=== PATIENT | male | born 1950 | race Caucasian/White ===

== ENCOUNTER → 2018-04-13 | Outpatient (CLI) | payer OTHER ==
--- NOTE | 2018-04-14 07:22 | PE ---
EXAMINATION TYPE: PET CT fusion skull to thigh DATE OF EXAM: 04/13/2018 COMPARISON: NONE HISTORY: Pancreatic cancer diagnosed on liver biopsy in February 2018. TECHNIQUE: Following the intravenous administration of 10.42 mCi of F-18 FDG, whole body images are performed from the skull base to the midthigh. Images are reviewed on the computer in the coronal, a xial, and sagittal planes. Reconstructed rotating images are created on independent workstation and reviewed on the computer. A noncontrast CT is performed in conjunction with the PET scan. SCAN: Initial Scan FINDINGS: SKULL BASE AND NECK: No areas of suspicious hypermetabolic uptake are present. CHEST, MEDIASTINUM, AND HILAR REGION: No areas of suspicious hypermetabolic uptake are seen. ABDOMEN AND PELVIS: Large irregular soft tissue mass is present centered in the uncinate process of p ancreas difficult to accurately measure from adjacent duodenal sweep likely measuring roughly 8 x 5 c m near axial image 151. Metallic internal biliary stent is identified. Mild hypermetabolic uptake is seen, max SUV is 3.8 posterior central aspect of the mass just anterior to aorta. Liver shows suspicious hypodense oval lesion posterior right hepatic lobe axial image 133 measuring r oughly 5.0 x 3.3 cm without abnormal hypermetabolic uptake. There are likely additional smaller scatt ered hypoechoic lesions. Max SUV throughout liver is roughly 3.1 without suspicious focal increased u ptake corresponding to hypodense lesions. Both above findings can be better evaluated with contrast-enhanced CT. No areas of suspicious hypermetabolic uptake in the abdomen or pelvis are seen. OSSEOUS STRUCTURES: No areas of suspicious hypermetabolic uptake are noted. OTHER CT: Mild to moderate calcified plaque bilateral carotid bulbs is present. There is right internal jugular Mediport catheter terminating near cavoatrial junction. Post CABG changes with mediastinal clips and sternal wires is identified. Main pulmonary artery measu res 4.2 cm at bifurcation, CT findings consistent with underlying pulmonary artery hypertension. Nell cent ascending aorta measures up to 4.3 cm in diameter. Elevated left hemidiaphragm is present. Mild to moderate underlying emphysematous change is identified without suspicious nodules. Suspect kaye bcentimeter low dense possible fat nodule posterior right thyroid axial image 53. Cholecystectomy changes are present. No suspicious biliary dilatation noted. There are some exophytic simple appearing cysts throughout both kidneys. There is multilevel spurring in the spine is seen. There is facet arthropathy lower lumbar spine note d. IMPRESSION: No suspicious focal hypermetabolic uptake correlating to areas of primary neoplasm in the pancreas and metastatic disease to the liver making utility of PET in this patient suboptimal. No co nvincing evidence of additional metastatic disease on noncontrast CT.
== END ==
LOC: RADPETMAIN 09:48
PROVIDERS: ATTEND Pain Medicine Interventional Pain Medicine
DX: Z08 Encounter for follow-up examination after completed treatment for malignant neoplasm (principal); Z85.07 Personal history of malignant neoplasm of pancreas
CPT/HCPCS: 78815; A9552

== ENCOUNTER 2018-05-02 22:16 | Inpatient (IN) | payer OTHER, MEDICARE ==
[2018-05-02] MEDS ORDERED: IPRATROPIUM-ALBUTEROL 3 ML NEB INHALATION STA (22:42)
--- NOTE | 2018-05-02 22:48 | ED ---
General Adult HPI - General Source: patient, family, RN notes reviewed Mode of arrival: ambulatory Limitations: no limitations <Sd Talley - Last Filed: 05/02/18 23:00> <Bharat Hernandez - Last Filed: 05/03/18 02:49> - General Chief complaint: Shortness of Breath Stated complaint: Swollen Feet, Fever, HX Chemo Time Seen by Provider: 05/02/18 22:36 - History of Present Illness Initial comments: Patient is a pleasant 67-year-old male presenting to the emergency Department with swelling and dyspnea. Onset of symptoms was today. Patient received his second dose of chemotherapy today for stage IV pancreatic cancer diagnosed in January. Patient has had his chemotherapy at the [facility]. Patient does have plans of transferring care to our facility. Patient received Gemcitabine and abraxane today. Patient does have history of COPD. Patient is short of breath even with speaking several words. Patient does have increase in leg edema, more so on his left. Patient has bilateral leg pain which has been chronic for him. Patient has been more fatigued. Patient did have fever earlier today. ( Sd Talley) - Related Data Allergies Allergy/AdvReac Type Severity Reaction Status Date / Time fluticasone Allergy Unknown Verified 05/02/18 23:28 roflumilast Allergy Unknown Verified 05/02/18 23:28 saxagliptin Allergy Unknown Verified 05/02/18 23:28 terazosin Allergy elevated BP Verified 05/02/18 23:28 Review of Systems ROS Other: All systems not noted in ROS Statement are negative. Constitutional: Reports: fever, chills Eyes: Denies: eye pain ENT: Denies: ear pain Respiratory: Reports: cough, dyspnea Cardiovascular: Denies: chest pain Endocrine: Reports: fatigue Gastrointestinal: Reports: abdominal pain (Chronic and unchanged) Genitourinary: Denies: dysuria Musculoskeletal: Denies: back pain Skin: Denies: rash Neurological: Denies: headache <Sd Talley - Last Filed: 05/02/18 23:00> ROS Other: All systems not noted in ROS Statement are negative. <Bharat Hernandez - Last Filed: 05/03/18 02:49> ROS Statement: Those systems with pertinent positive or pertinent negative responses have been documented in the HPI. Past Medical History Past Medical History: COPD, Diabetes Mellitus, Hypertension Additional Past Medical History / Comment(s): cx. CHF History of Any Multi-Drug Resistant Organisms: None Reported Past Surgical History: Cholecystectomy Additional Past Surgical History / Comment(s): triple bipass. Past Psychological History: No Psychological Hx Reported Smoking Status: Current every day smoker Past Alcohol Use History: None Reported Past Drug Use History: None Reported <Sd Talley - Last Filed: 05/02/18 23:00> General Exam Limitations: no limitations General appearance: alert Head exam: Present: atraumatic Eye exam: Present: normal appearance, PERRL ENT exam: Present: normal oropharynx Neck exam: Present: normal inspection Respiratory exam: Present: decreased breath sounds Cardiovascular Exam: Present: regular rate, normal rhythm GI/Abdominal exam: Present: soft, tenderness (Mild to moderate epigastric tenderness which patient states is chronic and unchanged) Extremities exam: Present: pedal edema (+3 bilaterally) Neurological exam: Present: alert Psychiatric exam: Present: normal affect, normal mood Skin exam: Present: normal color <Sd Talley - Last Filed: 05/02/18 23:00> Vital Signs 05/02/18 05/02/18 05/02/18 22:28 22:54 23:16 Temperature 98.7 F Pulse Rate 90 90 Respiratory 18 Rate Blood Pressure 73/32 88/44 O2 Sat by Pulse 96 Oximetry 05/02/18 05/03/18 05/03/18 23:24 01:00 01:30 Temperature Pulse Rate 90 83 82 Respiratory 16 18 Rate Blood Pressure 101/67 108/65 O2 Sat by Pulse 98 97 Oximetry EKG Findings - EKG Comments: EKG Findings:: Normal sinus rhythm 86. KS 160. QRS 66. QT 352. QTC 41. Normal axis. Normal QRS. No acute ST change. <Sd Talley - Last Filed: 05/02/18 23:00> Medical Decision Making <Sd Talley - Last Filed: 05/02/18 23:00> - Lab Data Result diagrams: 05/02/18 23:15 05/02/18 23:15 - Radiology Data Radiology results: report reviewed (CTA chest ultrasound leg, chest x-ray negative for acute disease), image reviewed <Bharat Hernandez - Last Filed: 05/03/18 02:49> - Medical Decision Making 59-year-old male the ER with fever, possible medication reaction from new chemotherapy, she'll be admitted for prophylactic antibiotics, rule out bacteremia, fluid resuscitation and monitoring (Bharat Hernandez) - Lab Data Lab Results 05/02/18 05/02/18 05/02/18 Range/Units 23:15 23:15 23:15 WBC 5.5 (3.8-10.6) k/uL RBC 3.59 L (4.30-5.90) m/uL Hgb 8.1 L (13.0-17.5) gm/dL Hct 25.4 L (39.0-53.0) % MCV 70.6 L (80.0-100.0) fL MCH 22.5 L (25.0-35.0) pg MCHC 31.9 (31.0-37.0) g/dL RDW 18.9 H (11.5-15.5) % Plt Count 201 (150-450) k/uL Neutrophils % (Manual) 83 % Band Neutrophils % 8 % Lymphocytes % (Manual) 8 % Monocytes % (Manual) 2 % Neutrophils # (Manual) 5.00 (1.3-7.7) k/uL Lymphocytes # (Manual) 0.44 L (1.0-4.8) k/uL Monocytes # (Manual) 0.11 (0-1.0) k/uL Nucleated RBCs 0 (0-0) /100 WBC Manual Slide Review Performed Hypochromasia Marked Poikilocytosis Slight Anisocytosis Slight Microcytosis Marked PT (9.0-12.0) sec INR (<1.2) APTT (22.0-30.0) sec Sodium 135 L (137-145) mmol/L Potassium 4.6 (3.5-5.1) mmol/L Chloride 103 (98-107) mmol/L Carbon Dioxide 22 (22-30) mmol/L Anion Gap 10 mmol/L BUN 20 (9-20) mg/dL Creatinine 1.00 (0.66-1.25) mg/dL Est GFR (CKD-EPI)AfAm 89 (>60 ml/min/1.73 sqM) Est GFR (CKD-EPI)NonAf 77 (>60 ml/min/1.73 sqM) Glucose 168 H (74-99) mg/dL Plasma Lactic Acid Duy (0.7-2.0) mmol/L Calcium 8.4 (8.4-10.2) mg/dL Total Bilirubin 0.8 (0.2-1.3) mg/dL AST 46 (17-59) U/L ALT 63 (21-72) U/L Alkaline Phosphatase 227 H (38-126) U/L Total Creatine Kinase 68 (55-170) U/L CK-MB (CK-2) 1.1 (0.0-2.4) ng/mL CK-MB (CK-2) Rel Index 1.6 Troponin I 0.017 (0.000-0.034) ng/mL NT-Pro-B Natriuret Pep pg/mL Total Protein 5.6 L (6.3-8.2) g/dL Albumin 2.6 L (3.5-5.0) g/dL Urine Color Urine Appearance (Clear) Urine pH (5.0-8.0) Ur Specific [place] (1.001-1.035) Urine Protein (Negative) Urine Glucose (UA) (Negative) Urine Ketones (Negative) Urine Blood (Negative) Urine Nitrite (Negative) Urine Bilirubin (Negative) Urine Urobilinogen (<2.0) mg/dL Ur Leukocyte Esterase (Negative) Influenza Type A RNA (Not Detectd) Influenza Type B (PCR) (Not Detectd) 05/02/18 05/02/18 05/02/18 Range/Units 23:15 23:15 23:15 WBC (3.8-10.6) k/uL RBC (4.30-5.90) m/uL Hgb (13.0-17.5) gm/dL Hct (39.0-53.0) % MCV (80.0-100.0) fL MCH (25.0-35.0) pg MCHC (31.0-37.0) g/dL RDW (11.5-15.5) % Plt Count (150-450) k/uL Neutrophils % (Manual) % Band Neutrophils % % Lymphocytes % (Manual) % Monocytes % (Manual) % Neutrophils # (Manual) (1.3-7.7) k/uL Lymphocytes # (Manual) (1.0-4.8) k/uL Monocytes # (Manual) (0-1.0) k/uL Nucleated RBCs (0-0) /100 WBC Manual Slide Review Hypochromasia Poikilocytosis Anisocytosis Microcytosis PT 12.5 H (9.0-12.0) sec INR 1.3 H (<1.2) APTT 28.9 (22.0-30.0) sec Sodium (137-145) mmol/L Potassium (3.5-5.1) mmol/L Chloride (98-107) mmol/L Carbon Dioxide (22-30) mmol/L Anion Gap mmol/L BUN (9-20) mg/dL Creatinine (0.66-1.25) mg/dL Est GFR (CKD-EPI)AfAm (>60 ml/min/1.73 sqM) Est GFR (CKD-EPI)NonAf (>60 ml/min/1.73 sqM) Glucose (74-99) mg/dL Plasma Lactic Acid Duy 2.2 H* (0.7-2.0) mmol/L Calcium (8.4-10.2) mg/dL Total Bilirubin (0.2-1.3) mg/dL AST (17-59) U/L ALT (21-72) U/L Alkaline Phosphatase (38-126) U/L Total Creatine Kinase (55-170) U/L CK-MB (CK-2) (0.0-2.4) ng/mL CK-MB (CK-2) Rel Index Troponin I (0.000-0.034) ng/mL NT-Pro-B Natriuret Pep 1030 pg/mL Total Protein (6.3-8.2) g/dL Albumin (3.5-5.0) g/dL Urine Color Urine Appearance (Clear) Urine pH (5.0-8.0) Ur Specific [place] (1.001-1.035) Urine Protein (Negative) Urine Glucose (UA) (Negative) Urine Ketones (Negative) Urine Blood (Negative) Urine Nitrite (Negative) Urine Bilirubin (Negative) Urine Urobilinogen (<2.0) mg/dL Ur Leukocyte Esterase (Negative) Influenza Type A RNA (Not Detectd) Influenza Type B (PCR) (Not Detectd) 05/03/18 05/03/18 Range/Units 01:57 01:57 WBC (3.8-10.6) k/uL RBC (4.30-5.90) m/uL Hgb (13.0-17.5) gm/dL Hct (39.0-53.0) % MCV (80.0-100.0) fL MCH (25.0-35.0) pg MCHC (31.0-37.0) g/dL RDW (11.5-15.5) % Plt Count (150-450) k/uL Neutrophils % (Manual) % Band Neutrophils % % Lymphocytes % (Manual) % Monocytes % (Manual) % Neutrophils # (Manual) (1.3-7.7) k/uL Lymphocytes # (Manual) (1.0-4.8) k/uL Monocytes # (Manual) (0-1.0) k/uL Nucleated RBCs (0-0) /100 WBC Manual Slide Review Hypochromasia Poikilocytosis Anisocytosis Microcytosis PT (9.0-12.0) sec INR (<1.2) APTT (22.0-30.0) sec Sodium (137-145) mmol/L Potassium (3.5-5.1) mmol/L Chloride (98-107) mmol/L Carbon Dioxide (22-30) mmol/L Anion Gap mmol/L BUN (9-20) mg/dL Creatinine (0.66-1.25) mg/dL Est GFR (CKD-EPI)AfAm (>60 ml/min/1.73 sqM) Est GFR (CKD-EPI)NonAf (>60 ml/min/1.73 sqM) Glucose (74-99) mg/dL Plasma Lactic Acid Duy (0.7-2.0) mmol/L Calcium (8.4-10.2) mg/dL Total Bilirubin (0.2-1.3) mg/dL AST (17-59) U/L ALT (21-72) U/L Alkaline Phosphatase (38-126) U/L Total Creatine Kinase (55-170) U/L CK-MB (CK-2) (0.0-2.4) ng/mL CK-MB (CK-2) Rel Index Troponin I (0.000-0.034) ng/mL NT-Pro-B Natriuret Pep pg/mL Total Protein (6.3-8.2) g/dL Albumin (3.5-5.0) g/dL Urine Color Yellow Urine Appearance Clear (Clear) Urine pH 5.5 (5.0-8.0) Ur Specific [place] 1.047 H (1.001-1.035) Urine Protein Trace H (Negative) Urine Glucose (UA) Negative (Negative) Urine Ketones Negative (Negative) Urine Blood Negative (Negative) Urine Nitrite Negative (Negative) Urine Bilirubin Negative (Negative) Urine Urobilinogen <2.0 (<2.0) mg/dL Ur Leukocyte Esterase Negative (Negative) Influenza Type A RNA Not Detected (Not Detectd) Influenza Type B (PCR) Not Detected (Not Detectd) Disposition <Sd Talley - Last Filed: 05/02/18 23:00> Is patient prescribed a controlled substance at d/c from ED?: No <Bharat Hernandez - Last Filed: 05/03/18 02:49> Clinical Impression: Fever, Weakness Disposition: ADMITTED IP TO THIS HOSP Condition: Fair Referrals: Joana Perales MD [Primary Care Provider] - 1-2 days
[2018-05-02 23:43] LABS: Albumin 2.6 g/dL (3.5-5.0); Calcium 8.4 mg/dL (8.4-10.2); Potassium 4.6 mmol/L (3.5-5.1); Total Bilirubin 0.8 mg/dL (0.2-1.3); Total Protein 5.6 g/dL (6.3-8.2)
--- NOTE | 2018-05-02 23:54 | XR ---
EXAMINATION TYPE: XR chest 1V portable DATE OF EXAM: 05/02/2018 COMPARISON: NONE HISTORY: Short of breath. TECHNIQUE: Single frontal view of the chest is obtained. FINDINGS: Portable upright view shows no heart failure. There is some coarsening of the lung marking s in the lower lobes. There are sternal wires. There is right central venous catheter with the tip in the superior vena cava. There are chest leads. There is no pneumothorax. There is no pleural effusio n. IMPRESSION: Minimal fibrotic changes. No heart failure or pulmonary consolidation.
[2018-05-03 00:08] LABS: INR 1.3 (<1.2); Partial Thromboplastin Time 28.9 sec (22.0-30.0); Prothrombin Time 12.5 sec (9.0-12.0)
[2018-05-03 00:27] LABS: Anisocytosis Slight; HCT 25.4 % (39.0-53.0); HGB 8.1 gm/dL (13.0-17.5); Hypochromasia Marked; MCH 22.5 pg (25.0-35.0); MCHC 31.9 g/dL (31.0-37.0); MCV 70.6 fL (80.0-100.0); Microcytosis Marked; Platelet Count 201 k/uL (150-450); Poikilocytosis Slight; RBC 3.59 m/uL (4.30-5.90); RDW 18.9 % (11.5-15.5); WBC 5.5 k/uL (3.8-10.6)
[2018-05-03] MEDS ORDERED: SODIUM CHLORIDE 0.9% 500 ML 500 ML IV ONE (00:32)
[2018-05-03 00:48] LABS: Creatine Kinase MB 1.1 ng/mL (0.0-2.4); Troponin I 0.017 ng/mL (0.000-0.034)
--- NOTE | 2018-05-03 00:59 | CT ---
EXAMINATION TYPE: CT angio chest DATE OF EXAM: 05/03/2018 12:35 AM COMPARISON: None HISTORY: SOB CT DLP: 701.4 mGycm Automated exposure control for dose reduction was used. CONTRAST: CTA scan of the thorax is performed with IV Contrast, patient injected with 100mL mL of Isovue 370, p ulmonary embolism protocol. The are 3-D post processed images.. FINDINGS: There is mild increased interstitial density at the lung bases. There is no evidence of a primary mas s. Heart appears enlarged. There is no pericardial effusion. There is no pleural effusion. There is n ormal contrast opacification of the pulmonary arteries. I see no filling defects. There is no mediast inal adenopathy. Thoracic aorta shows mild atheromatous change. There is mild aneurysm of ascending a sammy measures 4.1 cm. There is no dissection. There are mild spondylotic changes in the thoracic spin e. IMPRESSION: NO EVIDENCE OF PULMONARY EMBOLISM. ATHEROSCLEROTIC VASCULAR DISEASE. 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
[2018-05-03 01:03] LABS: Band Neutrophils % 8 %; Lymphocytes # (M) 0.44 k/uL (1.0-4.8); Monocytes # (M) 0.11 k/uL (0-1.0); Neutrophils % (M) 83 %; Nucleated Red Blood Cells 0 /100 WBC (0-0); Total Cells Counted 200
--- NOTE | 2018-05-03 01:35 | US ---
EXAMINATION TYPE: US venous doppler duplex LE LT DATE OF EXAM: 05/03/2018 12:35 AM COMPARISON: NONE CLINICAL HISTORY: Pain. Currently receiving chemo, pancreatic CA. left leg pain and swelling on and o ff SIDE PERFORMED: Left TECHNIQUE: The lower extremity deep venous system is examined utilizing real time linear array sonog barney with graded compression, doppler sonography and color-flow sonography. VESSELS IMAGED: External Iliac Vein (EIV) Common Femoral Vein Deep Femoral Vein Greater Saphenous Vein * Femoral Vein Popliteal Vein Small Saphenous Vein * Proximal Calf Veins (* superficial vessels) Left Leg: Negative for DVT IMPRESSION: Negative exam. No evidence of deep venous thrombosis in the left leg.
[2018-05-03 02:12] LABS: Appearance,Urine Clear (Clear); Bilirubin,Urine Negative (Negative); Blood,Urine Negative (Negative); Color,Urine Yellow; Glucose,Urine (UA) Negative (Negative); Ketones,Urine Negative (Negative); Leukocyte Esterase,Urine Negative (Negative); Nitrite,Urine Negative (Negative); PH, Urine 5.5 (5.0-8.0); Protein,Urine Trace (Negative); Urobilinogen,Urine <2.0 mg/dL (<2.0)
[2018-05-03 02:34] LABS: Specific Gravity,Urine 1.047 (1.001-1.035)
[2018-05-03] MEDS: SODIUM CHLORIDE 0.9% 500 ML 500 ML IV SCH ×3 (02:45→08:26)
[2018-05-03] MEDS ORDERED: LEVOFLOXACIN 750MG-D5W PMX 750 MG in DEXTROSE/WATER 1 150ML.BAG IVPB STA (02:46)
[2018-05-03] MEDS: SODIUM CHLORIDE 0.9% 1,000 ML IV SCH ×3 (04:06→18:08)
[2018-05-03] MEDS ORDERED: MELATONIN 3 MG TABLET PO PRN (05:57)
[2018-05-03] MEDS ORDERED: PROCHLORPERAZINE 10 MG TAB PO PRN (05:57)
[2018-05-03 07:10] LABS: Glucose,Whole Blood 149 mg/dL (75-99)
[2018-05-03] MEDS: MORPHINE SULFATE ER 30 MG TABLET PO PRN ×3 (07:28→18:51)
[2018-05-03] MEDS: IPRATROPIUM-ALBUTEROL 3 ML NEB INHALATION SCH ×5 (07:42→20:25)
[2018-05-03] MEDS: INSULIN ASPART 100 UNIT/ML 1 ML 10 ML VIAL SQ SCH ×4 (07:57→20:41)
[2018-05-03] MEDS: HYDROcodone/APAP 10-325MG 1 EACH TAB PO PRN ×4 (08:03→22:56)
[2018-05-03] MEDS: POLYETHYLENE GLYCOL 3350 17 GM POWD.PACK PO SCH ×2 (08:30→09:11)
[2018-05-03] MEDS: CYANOCOBALAMIN 500 MCG TAB PO SCH (08:30)
[2018-05-03] MEDS: TAMSULOSIN 0.4 MG CAP.ER.24H PO SCH ×2 (08:30→20:33)
[2018-05-03] MEDS: SENNOSIDES 8.6 MG TAB PO SCH ×3 (08:30→20:36)
[2018-05-03] MEDS: CLOTRIMAZOLE 1% CREAM 15 GM TUBE TOPICAL SCH ×2 (08:30→20:34)
[2018-05-03] MEDS: CHOLECALCIFEROL 400 UNIT TAB PO SCH (08:30)
[2018-05-03] MEDS: FINASTERIDE 5 MG TAB PO SCH (08:30)
[2018-05-03] MEDS: FERROUS SULFATE 325 MG TAB PO SCH (08:30)
[2018-05-03] MEDS: GABAPENTIN 400 MG CAP PO SCH ×3 (08:30→22:57)
[2018-05-03] MEDS: SUCRALFATE 1 GM TAB PO SCH ×4 (08:30→20:33)
[2018-05-03] MEDS: DIGOXIN 125 MCG TAB PO SCH (08:30)
[2018-05-03] MEDS: NICOTINE 21MG/24HR PATCH TRANSDERM SCH (08:30)
[2018-05-03] MEDS: ONDANSETRON ODT 8 MG TAB.RAPDIS PO SCH ×2 (08:30→20:33)
[2018-05-03 11:22] LABS: Glucose,Whole Blood 174 mg/dL (75-99)
[2018-05-03 13:51] LABS: Anisocytosis Slight; Basophils % (A) 0 %; Eosinophils % (A) 2 %; HCT 24.9 % (39.0-53.0); HGB 7.6 gm/dL (13.0-17.5); Hypochromasia Marked; Lymphocytes # (A) 0.3 k/uL (1.0-4.8); Lymphocytes % (A) 9 %; MCH 21.8 pg (25.0-35.0); MCHC 30.5 g/dL (31.0-37.0); MCV 71.6 fL (80.0-100.0); Mean Platelet Volume 9.6; Microcytosis Marked; Monocytes # (A) 0.1 k/uL (0-1.0); Monocytes % (A) 5 %; Neutrophils # (A) 2.5 k/uL (1.3-7.7); Neutrophils % (A) 83 %; Platelet Count 169 k/uL (150-450); Poikilocytosis Slight; RBC 3.47 m/uL (4.30-5.90); RDW 18.7 % (11.5-15.5)
[2018-05-03 14:28] LABS: Anion Gap 8 mmol/L; Blood Urea Nitrogen 18 mg/dL (9-20); Calcium 8.3 mg/dL (8.4-10.2); Carbon Dioxide 24 mmol/L (22-30); Chloride 104 mmol/L (98-107); Glucose 149 mg/dL (74-99); Potassium 3.8 mmol/L (3.5-5.1); Sodium 136 mmol/L (137-145)
--- NOTE | 2018-05-03 16:56 | US ---
EXAMINATION TYPE: US venous doppler duplex LE RT DATE OF EXAM: 05/03/2018 3:58 PM COMPARISON: CLINICAL HISTORY: Lower extremity edema. Swelling. Chemo treatment. Stopped blood thinners x 4 week s ago. No hx of blood clots. SIDE PERFORMED: Right TECHNIQUE: The lower extremity deep venous system is examined utilizing real time linear array sonog barney with graded compression, doppler sonography and color-flow sonography. VESSELS IMAGED: External Iliac Vein (EIV) Common Femoral Vein Deep Femoral Vein Greater Saphenous Vein * Femoral Vein Popliteal Vein Small Saphenous Vein * Proximal Calf Veins (* superficial vessels) Right Leg: Negative for DVT. Posterior right knee, fluid collection seen = 3.9 x 2.7 x 1.3 cm IMPRESSION: There is popliteal cyst. No evidence of deep venous thrombosis.
[2018-05-03 17:11] LABS: Glucose,Whole Blood 153 mg/dL (75-99)
[2018-05-03] MEDS: FUROSEMIDE 10 MG/ML 4 ML VIAL IV SCH ×2 (17:17→22:57)
[2018-05-03] MEDS: ATORVASTATIN 80 MG TAB PO SCH (20:34)
[2018-05-03 20:41] LABS: Glucose,Whole Blood 232 mg/dL (75-99)
[2018-05-03] MEDS: INSULIN DETEMIR 100 UNIT/ML 10 ML VIAL SQ SCH (20:42)
--- NOTE | 2018-05-03 21:59 | P.CONS ---
History of Present Illness - Reason for Consult Consult date: 05/03/18 Stage IV Pancreatic Carcinoma undergoing chemotherapy Requesting physician: Bharat Hernandez - Chief Complaint Shortness of breath - History of Present Illness Mr. Cameron is a pleasant 67 year old male patient who presented for increased dyspnea and shortness of breath. He apparently was recently diagnosed with stage IV pancreatic carcinoma back in January of this year and been undergoing chemotherapy with Abraxane and Gemzar through the [facility]. He is status post two treatments of gemzar and abraxane. Mr. Cameron has muliple co- morbidies aside this new diagnosis of carcinoma including COPD, Diabetes Mellitus, Hypertension, Prostate Disorder, Vascular Disorder, CHF, edema to lower extremities, renal disease, urinary hesistancy requiring straight cath, CABG with stents on plavix, and Atrial fibrillation on xarelto. at bedside. BLE edema and pain. States she brought him to hospital for rigors and fevers. Patient was ha cultured. IV abx initiated. he is currently feeling better. Review of Systems A 14 point review of systems assessed and completed and all negative except HPI. Past Medical History Past Medical History: COPD, Diabetes Mellitus, Hypertension, Prostate Disorder, Vascular Disorder Additional Past Medical History / Comment(s): cx. CHFemphysema, anemia, Stage 4 pancreatic cancer dx feb 2018, blister/yeast on scrotum, constipation, freq diarrhea with chemo, Triple A, edema to lower extremities History of Any Multi-Drug Resistant Organisms: None Reported Past Surgical History: Cholecystectomy, Coronary Bypass/CABG, Heart Catheterization With Stent Additional Past Surgical History / Comment(s): triple bipass 4 stents . carotid artery, Past Anesthesia/Blood Transfusion Reactions: Blood Transfusion Reaction Additional Past Anesthesia/Blood Transfusion Reaction / Comm: 4 days after fever Date of Last Stent Placement:: 2003 Past Psychological History: Depression Smoking Status: Current every day smoker Past Alcohol Use History: None Reported Past Drug Use History: None Reported - Past Family History Father Family Medical History: Myocardial Infarction ([place]) Mother Additional Family Medical History / Comment(s): blood clotting disease, triple bypass Brother(s) Additional Family Medical History / Comment(s): leukemia Medications and Allergies Home Medications Medication Instructions Recorded Confirmed Type Albuterol Inhaler [Ventolin Hfa 1 puff INHALATION RT-Q4H PRN 05/02/18 05/02/18 History Inhaler] Atorvastatin [Lipitor] 80 mg PO HS 05/02/18 05/02/18 History Cholecalciferol [Vitamin D3] 800 unit PO DAILY 05/02/18 05/02/18 History Cyanocobalamin (Vitamin B-12) 1,000 mcg PO DAILY 05/02/18 05/02/18 History [Vitamin B-12] Digoxin [Lanoxin] 125 mcg PO DAILY 05/02/18 05/02/18 History Ferrous Sulfate [Feosol] 325 mg PO DAILY 05/02/18 05/02/18 History Finasteride [Proscar] 5 mg PO DAILY 05/02/18 05/02/18 History Furosemide [Lasix] 40 mg PO TID 05/02/18 05/02/18 History Gabapentin [Neurontin] 400 mg PO TID 05/02/18 05/02/18 History HYDROcodone/APAP 10-325MG [[place] 1 tab PO Q4HR PRN 05/02/18 05/02/18 History 10-325] Insulin Aspart [NovoLOG Flexpen] 19 - 23 units SQ AC-TID 05/02/18 05/02/18 History Insulin Glargine [Lantus] 80 unit SQ HS 05/02/18 05/03/18 History Ketoconazole 2% Cream [Nizoral 2%] 1 applic TOPICAL BID 05/02/18 05/02/18 History Lisinopril [Zestril] 2.5 mg PO DAILY 05/02/18 05/02/18 History Melatonin 3 mg PO HS PRN 05/02/18 05/02/18 History Metoprolol Tartrate [Lopressor] 50 mg PO BID 05/02/18 05/02/18 History Morphine Sulfate ER [Ms Contin] 30 mg PO Q6HR PRN 05/02/18 05/03/18 History Ondansetron HCl 8 mg PO Q12HR 05/02/18 05/02/18 History Polyethylene Glycol 3350 [Miralax] 17 gm PO DAILY 05/02/18 05/02/18 History Prochlorperazine [Compazine] 10 mg PO Q6H PRN 05/02/18 05/02/18 History Sennosides [Senokot] 17.2 mg PO BID 05/02/18 05/02/18 History Sucralfate [Carafate] 1 gm PO QID 05/02/18 05/02/18 History Tamsulosin [Flomax] 0.4 mg PO BID 05/02/18 05/02/18 History Tiotropium [place] [Spiriva 2 spray INHALATION RT-DAILY 05/02/18 05/02/18 History Respimat] Allergies Allergy/AdvReac Type Severity Reaction Status Date / Time fluticasone Allergy Unknown Verified 05/03/18 04:52 roflumilast Allergy Unknown Verified 05/03/18 04:52 saxagliptin Allergy Unknown Verified 05/03/18 04:52 terazosin Allergy low blood Verified 05/03/18 04:52 pressure Physical Exam Vitals: Vital Signs Temp Pulse Pulse Pulse Resp BP BP 05/03/18 11:48 92 05/03/18 11:36 88 05/03/18 08:55 74 20 05/03/18 08:46 20 05/03/18 07:53 82 05/03/18 07:45 84 05/03/18 04:50 97.8 F 76 20 101/50 05/03/18 04:10 97.7 F 79 22 109/49 05/03/18 03:30 73 40 H 138/50 05/03/18 03:00 75 28 H 05/03/18 02:30 79 24 05/03/18 02:00 28 H 120/64 05/03/18 01:30 82 18 108/65 05/03/18 01:00 83 16 101/67 05/02/18 23:24 90 05/02/18 23:16 90 05/02/18 22:54 88/44 05/02/18 22:28 98.7 F 90 18 73/32 Pulse Ox 05/03/18 11:48 05/03/18 11:36 05/03/18 08:55 05/03/18 08:46 05/03/18 07:53 05/03/18 07:45 05/03/18 04:50 98 05/03/18 04:10 97 05/03/18 03:30 05/03/18 03:00 05/03/18 02:30 05/03/18 02:00 05/03/18 01:30 97 05/03/18 01:00 98 05/02/18 23:24 05/02/18 23:16 05/02/18 22:54 05/02/18 22:28 96 Intake and Output 05/02/18 05/03/18 05/03/18 22:59 06:59 14:59 Other: Voiding Method Self-Catheterization Weight 103.873 kg 103.5 kg 103.5 kg General appearance: alert Head exam: Normocephalic atraumatic Eye exam: non-icteric sclera, normal appearance, PERRL ENT exam: normal oropharynx Neck exam: Supple, no lymphadenopathy, Respiratory exam: Blateral decreased breath sounds at bases Cardiovascular Exam: irregular rate, rhythm GI/Abdominal exam: Obese, soft, tenderness Extremities exam: pedal edema (+3 bilaterally) left greater right Neurological exam: Non focal Psychiatric exam: normal affect, non focal Results CBC & Chem 7: 05/03/18 13:21 05/03/18 13:21 Labs: Abnormal Lab Results - Last 24 Hours (Table) 05/02/18 05/02/18 05/02/18 Range/Units 23:15 23:15 23:15 RBC 3.59 L (4.30-5.90) m/uL Hgb 8.1 L (13.0-17.5) gm/dL Hct 25.4 L (39.0-53.0) % MCV 70.6 L (80.0-100.0) fL MCH 22.5 L (25.0-35.0) pg RDW 18.9 H (11.5-15.5) % Lymphocytes # (Manual) 0.44 L (1.0-4.8) k/uL PT (9.0-12.0) sec INR (<1.2) Sodium 135 L (137-145) mmol/L Glucose 168 H (74-99) mg/dL POC Glucose (mg/dL) (75-99) mg/dL Plasma Lactic Acid Duy 2.2 H* (0.7-2.0) mmol/L Alkaline Phosphatase 227 H (38-126) U/L Total Protein 5.6 L (6.3-8.2) g/dL Albumin 2.6 L (3.5-5.0) g/dL Ur Specific [place] (1.001-1.035) Urine Protein (Negative) 05/02/18 05/03/1818 Range/Units 23:15 01:57 07:09 RBC (4.30-5.90) m/uL Hgb (13.0-17.5) gm/dL Hct (39.0-53.0) % MCV (80.0-100.0) fL MCH (25.0-35.0) pg RDW (11.5-15.5) % Lymphocytes # (Manual) (1.0-4.8) k/uL PT 12.5 H (9.0-12.0) sec INR 1.3 H (<1.2) Sodium (137-145) mmol/L Glucose (74-99) mg/dL POC Glucose (mg/dL) 149 H (75-99) mg/dL Plasma Lactic Acid Duy (0.7-2.0) mmol/L Alkaline Phosphatase (38-126) U/L Total Protein (6.3-8.2) g/dL Albumin (3.5-5.0) g/dL Ur Specific [place] 1.047 H (1.001-1.035) Urine Protein Trace H (Negative) 05/03/18 Range/Units 11:21 RBC (4.30-5.90) m/uL Hgb (13.0-17.5) gm/dL Hct (39.0-53.0) % MCV (80.0-100.0) fL MCH (25.0-35.0) pg RDW (11.5-15.5) % Lymphocytes # (Manual) (1.0-4.8) k/uL PT (9.0-12.0) sec INR (<1.2) Sodium (137-145) mmol/L Glucose (74-99) mg/dL POC Glucose (mg/dL) 174 H (75-99) mg/dL Plasma Lactic Acid Duy (0.7-2.0) mmol/L Alkaline Phosphatase (38-126) U/L Total Protein (6.3-8.2) g/dL Albumin (3.5-5.0) g/dL Ur Specific [place] (1.001-1.035) Urine Protein (Negative) CT scan - chest: report reviewed Venous US: report reviewed Assessment and Plan Plan: Assessment and Recommendations: 1. Metastatic Pancreatic Cancer - Treatment through [facility] - Status Post 2 weekly infusions of Gemcitabine and Abraxane - Currently on hold and will follow-up to resume treatment at [facility] with our medical oncology office - Please obtain all records from [place] 2. Subjective fever and Chills: Afebrile since admission: - Ha CUlture Pending UA/Culture pending 3. Leukopenia - Secondary to chemotherapy - Monitor for s/s of infection. If WBC less than 1.5 or Neuts less than 0.8 may initiate Zarxio 4. Normocytic Anemia: Secondary to chemotherapy - If less than 7 transfuse 5. BLE Edema - Dopplers negative - 6. Urinary Retention: - urology following, catheter Greater than 30 minutes spent with patient and family, reviewed their recent PET scan, stage of disease, the natural history and goals of care as palliative treatment of cancer especially in the picture of Mr. Norris other multiple co- morbidities which may increase treatment risks and minimize options. Currently his xarelto is on hold per [place] [facility]. THis was started per the patient for Trial fibrillation. His PLavix is on hold as well and they state [facility] secondary to increased risk of bleeding, no overt bleeding noted. PLatlets are stable, therefore from an oncology and hematolology standpoint if cardiology feels necessary and benefit of these medications there is no contraindation as long as platlet level is greaker than 50K and no evidence of bleeding THank you for allowing us to participate in the care of this patient we will follow along
[2018-05-04] MEDS: IPRATROPIUM-ALBUTEROL 3 ML NEB INHALATION SCH ×7 (00:14→23:14)
[2018-05-04] MEDS: MORPHINE SULFATE ER 30 MG TABLET PO PRN ×4 (01:26→22:15)
[2018-05-04] MEDS: SODIUM CHLORIDE 0.9% 1,000 ML IV SCH ×2 (02:53→16:38)
[2018-05-04] MEDS ORDERED: LEVOFLOXACIN 750MG-D5W PMX 750 MG in DEXTROSE/WATER 1 150ML.BAG IVPB SCH (04:00)
[2018-05-04] MEDS: HYDROcodone/APAP 10-325MG 1 EACH TAB PO PRN ×3 (05:37→15:45)
[2018-05-04 07:36] LABS: Glucose,Whole Blood 83 mg/dL (75-99)
[2018-05-04] MEDS: INSULIN ASPART 100 UNIT/ML 1 ML 10 ML VIAL SQ SCH ×4 (07:49→21:02)
[2018-05-04] MEDS: POLYETHYLENE GLYCOL 3350 17 GM POWD.PACK PO SCH (07:54)
[2018-05-04] MEDS: SENNOSIDES 8.6 MG TAB PO SCH ×2 (07:54→21:02)
[2018-05-04] MEDS: FUROSEMIDE 10 MG/ML 4 ML VIAL IV SCH ×2 (07:54→16:43)
[2018-05-04] MEDS: NICOTINE 21MG/24HR PATCH TRANSDERM SCH (07:59)
[2018-05-04] MEDS: CYANOCOBALAMIN 500 MCG TAB PO SCH (08:00)
[2018-05-04] MEDS: SUCRALFATE 1 GM TAB PO SCH ×4 (08:00→21:02)
[2018-05-04] MEDS: CHOLECALCIFEROL 400 UNIT TAB PO SCH (08:00)
[2018-05-04] MEDS: GABAPENTIN 400 MG CAP PO SCH ×3 (08:01→21:02)
[2018-05-04] MEDS: DIGOXIN 125 MCG TAB PO SCH (08:01)
[2018-05-04] MEDS: FERROUS SULFATE 325 MG TAB PO SCH (08:01)
[2018-05-04] MEDS: ONDANSETRON ODT 8 MG TAB.RAPDIS PO SCH ×2 (08:01→21:02)
[2018-05-04] MEDS: FINASTERIDE 5 MG TAB PO SCH (08:02)
[2018-05-04] MEDS: TAMSULOSIN 0.4 MG CAP.ER.24H PO SCH ×2 (08:02→21:02)
[2018-05-04 08:08] LABS: Glucose,Whole Blood 77 mg/dL (75-99)
[2018-05-04 08:51] LABS: Glucose,Whole Blood 121 mg/dL (75-99)
[2018-05-04] MEDS: CLOTRIMAZOLE 1% CREAM 15 GM TUBE TOPICAL SCH ×2 (09:31→21:01)
[2018-05-04 11:44] LABS: Glucose,Whole Blood 130 mg/dL (75-99)
[2018-05-04 11:53] LABS: Anisocytosis Slight; Basophils % (A) 0 %; Eosinophils % (A) 1 %; HCT 24.3 % (39.0-53.0); HGB 7.3 gm/dL (13.0-17.5); Hypochromasia Marked; Lymphocytes # (A) 0.2 k/uL (1.0-4.8); Lymphocytes % (A) 7 %; MCH 22.1 pg (25.0-35.0); MCHC 30.2 g/dL (31.0-37.0); MCV 73.4 fL (80.0-100.0); Mean Platelet Volume 8.5; Microcytosis Moderate; Monocytes # (A) 0.1 k/uL (0-1.0); Monocytes % (A) 3 %; Neutrophils # (A) 2.2 k/uL (1.3-7.7); Neutrophils % (A) 88 %; Platelet Count 181 k/uL (150-450); Poikilocytosis Slight; RDW 18.3 % (11.5-15.5); WBC 2.6 k/uL (3.8-10.6)
[2018-05-04 11:55] LABS: ALT 65 U/L (21-72); AST 42 U/L (17-59); Albumin 2.6 g/dL (3.5-5.0); Alkaline Phosphatase 166 U/L (38-126); Anion Gap 8 mmol/L; Blood Urea Nitrogen 14 mg/dL (9-20); Calcium 8.3 mg/dL (8.4-10.2); Carbon Dioxide 24 mmol/L (22-30); Chloride 103 mmol/L (98-107); Glucose 82 mg/dL (74-99); Potassium 3.9 mmol/L (3.5-5.1); Sodium 135 mmol/L (137-145); Total Bilirubin 0.4 mg/dL (0.2-1.3); Total Protein 5.6 g/dL (6.3-8.2)
[2018-05-04] MEDS ORDERED: FUROSEMIDE 250 MG in SODIUM CHLORIDE 0.9% 225 ML IVP SCH (17:00)
--- NOTE | 2018-05-04 17:12 | P.HPIM ---
History of Present Illness H&P Date: 05/03/18 Patient is a pleasant 67-year-old male presenting to the emergency Department with swelling and dyspnea. Onset of symptoms was today. Patient received his second dose of chemotherapy today for stage IV pancreatic cancer diagnosed in January. Patient has had his chemotherapy at the [facility]. Patient does have plans of transferring care to our facility. Patient received Gemcitabine and abraxane today. Patient does have history of COPD. Patient is short of breath even with speaking several words. Patient does have increase in leg edema, more so on his left. Patient has bilateral leg pain which has been chronic for him. Patient has been more fatigued. Patient did have fever earlier today. Review of Systems ROS Other: All systems not noted in ROS Statement are negative. Constitutional: Reports: fever, chills Eyes: Denies: eye pain ENT: Denies: ear pain Respiratory: Reports: cough, dyspnea Cardiovascular: Denies: chest pain Endocrine: Reports: fatigue Gastrointestinal: Reports: abdominal pain (Chronic and unchanged) Genitourinary: Denies: dysuria Musculoskeletal: Denies: back pain Skin: Denies: rash Neurological: Denies: headache Past Medical History Past Medical History: COPD, Diabetes Mellitus, Hypertension, Prostate Disorder, Vascular Disorder Additional Past Medical History / Comment(s): cx. CHFemphysema, anemia, Stage 4 pancreatic cancer dx feb 2018, blister/yeast on scrotum, constipation, freq diarrhea with chemo, Triple A, edema to lower extremities History of Any Multi-Drug Resistant Organisms: None Reported Past Surgical History: Cholecystectomy, Coronary Bypass/CABG, Heart Catheterization With Stent Additional Past Surgical History / Comment(s): triple bipass 4 stents . carotid artery, Past Anesthesia/Blood Transfusion Reactions: Blood Transfusion Reaction Additional Past Anesthesia/Blood Transfusion Reaction / Comment(s): 4 days after fever Date of Last Stent Placement:: 2003 Past Psychological History: Depression Smoking Status: Current every day smoker Past Alcohol Use History: None Reported Past Drug Use History: None Reported - Past Family History Father Family Medical History: Myocardial Infarction ([place]) Mother Additional Family Medical History / Comment(s): blood clotting disease, triple bypass Brother(s) Additional Family Medical History / Comment(s): leukemia Medications and Allergies Home Medications Medication Instructions Recorded Confirmed Type Albuterol Inhaler [Ventolin Hfa 1 puff INHALATION RT-Q4H PRN 05/02/18 05/02/18 History Inhaler] Atorvastatin [Lipitor] 80 mg PO HS 05/02/18 05/02/18 History Cholecalciferol [Vitamin D3] 800 unit PO DAILY 05/02/18 05/02/18 History Cyanocobalamin (Vitamin B-12) 1,000 mcg PO DAILY 05/02/18 05/02/18 History [Vitamin B-12] Digoxin [Lanoxin] 125 mcg PO DAILY 05/02/18 05/02/18 History Ferrous Sulfate [Feosol] 325 mg PO DAILY 05/02/18 05/02/18 History Finasteride [Proscar] 5 mg PO DAILY 05/02/18 05/02/18 History Furosemide [Lasix] 40 mg PO TID 05/02/18 05/02/18 History Gabapentin [Neurontin] 400 mg PO TID 05/02/18 05/02/18 History HYDROcodone/APAP 10-325MG [[place] 1 tab PO Q4HR PRN 05/02/18 05/02/18 History 10-325] Insulin Aspart [NovoLOG Flexpen] 19 - 23 units SQ AC-TID 05/02/18 05/02/18 History Insulin Glargine [Lantus] 80 unit SQ HS 05/02/18 05/03/18 History Ketoconazole 2% Cream [Nizoral 2%] 1 applic TOPICAL BID 05/02/18 05/02/18 History Lisinopril [Zestril] 2.5 mg PO DAILY 05/02/18 05/02/18 History Melatonin 3 mg PO HS PRN 05/02/18 05/02/18 History Metoprolol Tartrate [Lopressor] 50 mg PO BID 05/02/18 05/02/18 History Morphine Sulfate ER [Ms Contin] 30 mg PO Q6HR PRN 05/02/18 05/03/18 History Ondansetron HCl 8 mg PO Q12HR 05/02/18 05/02/18 History Polyethylene Glycol 3350 [Miralax] 17 gm PO DAILY 05/02/18 05/02/18 History Prochlorperazine [Compazine] 10 mg PO Q6H PRN 05/02/18 05/02/18 History Sennosides [Senokot] 17.2 mg PO BID 05/02/18 05/02/18 History Sucralfate [Carafate] 1 gm PO QID 05/02/18 05/02/18 History Tamsulosin [Flomax] 0.4 mg PO BID 05/02/18 05/02/18 History Tiotropium [place] [Spiriva 2 spray INHALATION RT-DAILY 05/02/18 05/02/18 History Respimat] Allergies Allergy/AdvReac Type Severity Reaction Status Date / Time fluticasone Allergy Unknown Verified 05/03/18 04:52 roflumilast Allergy Unknown Verified 05/03/18 04:52 saxagliptin Allergy Unknown Verified 05/03/18 04:52 terazosin Allergy low blood Verified 05/03/18 04:52 pressure Physical Exam Vitals: Vital Signs Temp Pulse Pulse Pulse Resp BP BP 05/03/18 08:55 74 20 05/03/18 08:46 20 05/03/18 07:53 82 05/03/18 07:45 84 05/03/18 04:50 97.8 F 76 20 101/50 05/03/18 04:10 97.7 F 79 22 109/49 05/03/18 03:30 73 40 H 138/50 05/03/18 03:00 75 28 H 05/03/18 02:30 79 24 05/03/18 02:00 28 H 120/64 05/03/18 01:30 82 18 108/65 05/03/18 01:00 83 16 101/67 05/02/18 23:24 90 05/02/18 23:16 90 05/02/18 22:54 88/44 05/02/18 22:28 98.7 F 90 18 73/32 Pulse Ox 05/03/18 08:55 05/03/18 08:46 05/03/18 07:53 05/03/18 07:45 05/03/18 04:50 98 05/03/18 04:10 97 05/03/18 03:30 05/03/18 03:00 05/03/18 02:30 05/03/18 02:00 05/03/18 01:30 97 05/03/18 01:00 98 05/02/18 23:24 05/02/18 23:16 05/02/18 22:54 11/15/18 22:28 96 Intake and Output 05/02/18 05/03/18 05/03/18 22:59 06:59 14:59 Other: Voiding Method Self-Catheterization Weight 103.873 kg 103.5 kg Limitations: no limitations General appearance: alert Head exam: Present: atraumatic Eye exam: Present: normal appearance, PERRL ENT exam: Present: normal oropharynx Neck exam: Present: normal inspection Respiratory exam: Present: decreased breath sounds Cardiovascular Exam: Present: regular rate, normal rhythm GI/Abdominal exam: Present: soft, tenderness (Mild to moderate epigastric tenderness which patient states is chronic and unchanged) Extremities exam: Present: pedal edema (+3 bilaterally) Neurological exam: Present: alert Psychiatric exam: Present: normal affect, normal mood Skin exam: Present: normal color Results CBC & Chem 7: 05/04/18 11:27 05/04/18 11:27 Labs: Abnormal Lab Results - Last 24 Hours (Table) 05/02/18 05/02/18 05/02/18 Range/Units 23:15 23:15 23:15 RBC 3.59 L (4.30-5.90) m/uL Hgb 8.1 L (13.0-17.5) gm/dL Hct 25.4 L (39.0-53.0) % MCV 70.6 L (80.0-100.0) fL MCH 22.5 L (25.0-35.0) pg RDW 18.9 H (11.5-15.5) % Lymphocytes # (Manual) 0.44 L (1.0-4.8) k/uL PT (9.0-12.0) sec INR (<1.2) Sodium 135 L (137-145) mmol/L Glucose 168 H (74-99) mg/dL POC Glucose (mg/dL) (75-99) mg/dL Plasma Lactic Acid Duy 2.2 H* (0.7-2.0) mmol/L Alkaline Phosphatase 227 H (38-126) U/L Total Protein 5.6 L (6.3-8.2) g/dL Albumin 2.6 L (3.5-5.0) g/dL Ur Specific [place] (1.001-1.035) Urine Protein (Negative) 05/02/18 05/03/18 05/03/18 Range/Units 23:15 01:57 07:09 RBC (4.30-5.90) m/uL Hgb (13.0-17.5) gm/dL Hct (39.0-53.0) % MCV (80.0-100.0) fL MCH (25.0-35.0) pg RDW (11.5-15.5) % Lymphocytes # (Manual) (1.0-4.8) k/uL PT 12.5 H (9.0-12.0) sec INR 1.3 H (<1.2) Sodium (137-145) mmol/L Glucose (74-99) mg/dL POC Glucose (mg/dL) 149 H (75-99) mg/dL Plasma Lactic Acid Duy (0.7-2.0) mmol/L Alkaline Phosphatase (38-126) U/L Total Protein (6.3-8.2) g/dL Albumin (3.5-5.0) g/dL Ur Specific [place] 1.047 H (1.001-1.035) Urine Protein Trace H (Negative) 05/03/18 Range/Units 11:21 RBC (4.30-5.90) m/uL Hgb (13.0-17.5) gm/dL Hct (39.0-53.0) % MCV (80.0-100.0) fL MCH (25.0-35.0) pg RDW (11.5-15.5) % Lymphocytes # (Manual) (1.0-4.8) k/uL PT (9.0-12.0) sec INR (<1.2) Sodium (137-145) mmol/L Glucose (74-99) mg/dL POC Glucose (mg/dL) 174 H (75-99) mg/dL Plasma Lactic Acid Duy (0.7-2.0) mmol/L Alkaline Phosphatase (38-126) U/L Total Protein (6.3-8.2) g/dL Albumin (3.5-5.0) g/dL Ur Specific [place] (1.001-1.035) Urine Protein (Negative) Thrombosis Risk Factor Assmnt - Choose All That Apply Any of the Below Risk Factors Present?: Yes Each Factor Represents 1 point: Abnormal pulmonary function (COPD), Obesity ( BMI >25) Other Risk Factors: Yes Each Risk Factor Represents 2 Points: Age 61-74 years, Patient confined to bed, Malignancy Other congenital or acquired thrombophilia - If yes, enter type in comment: No Thrombosis Risk Factor Assessment Total Risk Factor Score: 8 Thrombosis Risk Factor Assessment Level: High Risk Assessment and Plan Assessment: 1. Metastatic Pancreatic Cancer - Treatment through [facility] - Status Post 2 weekly infusions of Gemcitabine and Abraxane - Currently on hold and will follow-up to resume treatment at [facility] with our medical oncology office - Please obtain all records from [place] 2. Subjective fever and Chills: Afebrile since admission: - English CUlture Pending; patient remains on IV Levaquin 750 mg daily UA/Culture pending 3. Leukopenia - Secondary to chemotherapy - Monitor for s/s of infection. If WBC less than 1.5 or Neuts less than 0.8 may initiate Zarxio 4. Normocytic Anemia: Secondary to chemotherapy - If less than 7 transfuse 5. BLE Edema - Dopplers negative - - Per patient he was going to be initiated on IV Lasix drip - We will start patient on IV Lasix 10 mg per hour - We will consult cardiology if fails to diurese 6. Urinary Retention: - Patient remains on Proscar 5 mg daily and Flomax 0.4 mg twice a day - urology following, catheter 7. Hyperlipidemia; continue with home dose of Lipitor 80 mg daily at bedtime 8. Diabetes mellitus type 1 - Continue with Levemir 80 units subcu daily at bedtime - We will continue with Accu-Cheks with insulin sliding scale DVT prophylaxis; SCDs CODE STATUS; full code
[2018-05-04 17:30] LABS: Glucose,Whole Blood 159 mg/dL (75-99)
[2018-05-04] MEDS: SIMETHICONE 80 MG CHEWABLE PO SCH ×2 (18:25→22:08)
[2018-05-04 20:36] LABS: Glucose,Whole Blood 139 mg/dL (75-99)
--- NOTE | 2018-05-04 20:37 | P.PN ---
Subjective Progress Note Date: 05/04/18 Principal diagnosis: Metastatic Pancreatic Cancer - Liver, Increased LE Edema, Subjective Fevers, SOB Patient seen and evaluated today in follow-up. He is feeling better since admitted. His swelling in his LE has somewhat improved. Ultrasound Dopplers of both LE were reviewed and negative for acute DVT. Objective - Vital Signs Vital signs: Vital Signs Temp 98.4 F 05/04/18 13:00 Pulse 94 05/04/18 17:00 Resp 16 05/04/18 16:42 BP 134/62 05/04/18 13:00 Pulse Ox 95 05/04/18 13:00 Intake & Output 05/04/18 05/04/18 05/05/18 06:59 18:59 06:59 Intake Total 100 100 100 Output Total 1300 300 Balance -1200 -200 100 Weight 103.873 kg 103.873 kg Intake: Oral 100 100 100 Output: Urine 1300 300 Uretheral (Marx) 300 Other: Voiding Method Indwelling Catheter Indwelling Catheter # Voids 4 - Exam General appearance: alert Head exam: Normocephalic atraumatic Eye exam: non-icteric sclera, normal appearance, PERRL ENT exam: normal oropharynx Neck exam: Supple, no lymphadenopathy, Respiratory exam: Blateral decreased breath sounds at bases Cardiovascular Exam: irregular rate, rhythm GI/Abdominal exam: Obese, soft, tenderness Extremities exam: pedal edema (+3 bilaterally) left greater right Neurological exam: Non focal Psychiatric exam: normal affect, non focal - Labs CBC & Chem 7: 05/04/18 11:27 05/04/18 11:27 Labs: Abnormal Lab Results - Last 24 Hours (Table) 05/03/18 05/04/18 05/04/18 Range/Units 20:39 08:49 11:27 WBC 2.6 L (3.8-10.6) k/uL RBC 3.30 L (4.30-5.90) m/uL Hgb 7.3 L (13.0-17.5) gm/dL Hct 24.3 L (39.0-53.0) % MCV 73.4 L (80.0-100.0) fL MCH 22.1 L (25.0-35.0) pg MCHC 30.2 L (31.0-37.0) g/dL RDW 18.3 H (11.5-15.5) % Lymphocytes # 0.2 L (1.0-4.8) k/uL Sodium (137-145) mmol/L POC Glucose (mg/dL) 232 H 121 H (75-99) mg/dL Calcium (8.4-10.2) mg/dL Alkaline Phosphatase (38-126) U/L Total Protein (6.3-8.2) g/dL Albumin (3.5-5.0) g/dL 05/04/18 05/04/18 05/04/18 Range/Units 11:27 11:43 17:28 WBC (3.8-10.6) k/uL RBC (4.30-5.90) m/uL Hgb (13.0-17.5) gm/dL Hct (39.0-53.0) % MCV (80.0-100.0) fL MCH (25.0-35.0) pg MCHC (31.0-37.0) g/dL RDW (11.5-15.5) % Lymphocytes # (1.0-4.8) k/uL Sodium 135 L (137-145) mmol/L POC Glucose (mg/dL) 130 H 159 H (75-99) mg/dL Calcium 8.3 L (8.4-10.2) mg/dL Alkaline Phosphatase 166 H (38-126) U/L Total Protein 5.6 L (6.3-8.2) g/dL Albumin 2.6 L (3.5-5.0) g/dL Microbiology - Last 24 Hours (Table) 05/02/18 23:15 Blood Culture - Preliminary Blood No Growth after 24 hours Assessment and Plan Plan: Assessment and Recommendations: 1. Metastatic Pancreatic Cancer - Treatment through [facility] - Status Post 2 weekly infusions of Gemcitabine and Abraxane - Currently on hold and will follow-up to resume treatment at [facility] with our medical oncology office - Please obtain all records from [place] 2. Subjective fever and Chills: Afebrile since admission: - English CUlture Pending - Blood cultures neg at 24 hours. - UA - neg 3. Leukopenia - Secondary to chemotherapy - Monitor for s/s of infection. If WBC less than 1.5 or Neuts less than 0.8 may initiate Zarxio 4. Normocytic Anemia: Secondary to chemotherapy - If less than 7 transfuse 5. BLE Edema - Dopplers negative - 6. Urinary Retention: - urology following, catheter - This is a chronic issue per patient which initially started with recurrent stones. He utilizes a self straight catheterization at home 7. Diarrhea: - C-diff Negative - Monitor electrolytes - Stool Studies O and P, Fecal Leuks, and Culture ordered - Pancreatic Enzymes prior to meals - Questran 8. Afib: - Patient was previously treated with xarelto although this has been held per Oncology Team at [facility] in [place]. 9. CAB Stents in 2004: - Plavix was recently Stopped by Oncology team in [place] prior to starting chemotherapy and he was instructed to continue on baby aspirin daily. Greater than 20minutes was spent face to face by Dr. Mcmahon today discussing the natural history of metastatic Pancreatic cancer and treatment plan. Physician Attestation: I have completed the full history and physical of this patient and agree with above dictation by Ruthy Cuellar NP. Dictated as a scribe.
[2018-05-04] MEDS: ATORVASTATIN 80 MG TAB PO SCH (21:02)
[2018-05-04] MEDS: INSULIN DETEMIR 100 UNIT/ML 10 ML VIAL SQ SCH (22:07)
[2018-05-05] MEDS: FUROSEMIDE 10 MG/ML 4 ML VIAL IV SCH ×4 (02:01→23:33)
[2018-05-05] MEDS: IPRATROPIUM-ALBUTEROL 3 ML NEB INHALATION SCH ×5 (03:49→21:17)
[2018-05-05] MEDS: MORPHINE SULFATE ER 30 MG TABLET PO PRN ×3 (05:49→21:34)
[2018-05-05 05:56] LABS: Glucose,Whole Blood 107 mg/dL (75-99)
[2018-05-05 07:39] LABS: Glucose,Whole Blood 107 mg/dL (75-99)
[2018-05-05 08:04] LABS: Anisocytosis Slight; Basophils % (A) 0 %; Eosinophils % (A) 2 %; HCT 23.4 % (39.0-53.0); HGB 7.1 gm/dL (13.0-17.5); Hypochromasia Marked; Lymphocytes # (A) 0.1 k/uL (1.0-4.8); Lymphocytes % (A) 6 %; MCH 21.8 pg (25.0-35.0); MCHC 30.2 g/dL (31.0-37.0); MCV 72.2 fL (80.0-100.0); Mean Platelet Volume 8.6; Microcytosis Marked; Monocytes # (A) 0.1 k/uL (0-1.0); Monocytes % (A) 3 %; Neutrophils # (A) 2.2 k/uL (1.3-7.7); Neutrophils % (A) 89 %; Platelet Count 174 k/uL (150-450); Poikilocytosis Slight; RBC 3.25 m/uL (4.30-5.90); RDW 18.7 % (11.5-15.5); WBC 2.5 k/uL (3.8-10.6)
[2018-05-05 08:17] LABS: ALT 92 U/L (21-72); AST 76 U/L (17-59); Albumin 2.5 g/dL (3.5-5.0); Alkaline Phosphatase 157 U/L (38-126); Anion Gap 8 mmol/L; Blood Urea Nitrogen 13 mg/dL (9-20); Calcium 8.1 mg/dL (8.4-10.2); Carbon Dioxide 25 mmol/L (22-30); Chloride 101 mmol/L (98-107); Glucose 96 mg/dL (74-99); Potassium 3.8 mmol/L (3.5-5.1); Sodium 134 mmol/L (137-145); Total Bilirubin 0.8 mg/dL (0.2-1.3); Total Protein 5.4 g/dL (6.3-8.2)
[2018-05-05] MEDS: INSULIN ASPART 100 UNIT/ML 1 ML 10 ML VIAL SQ SCH ×4 (08:46→21:35)
[2018-05-05] MEDS: HYDROcodone/APAP 10-325MG 1 EACH TAB PO PRN ×4 (08:49→23:54)
[2018-05-05] MEDS: SUCRALFATE 1 GM TAB PO SCH ×4 (08:52→21:34)
[2018-05-05] MEDS: CHOLECALCIFEROL 400 UNIT TAB PO SCH (08:54)
[2018-05-05] MEDS: CLOTRIMAZOLE 1% CREAM 15 GM TUBE TOPICAL SCH ×2 (08:54→22:09)
[2018-05-05] MEDS: DIGOXIN 125 MCG TAB PO SCH (08:54)
[2018-05-05] MEDS: CYANOCOBALAMIN 500 MCG TAB PO SCH (08:54)
[2018-05-05] MEDS: FERROUS SULFATE 325 MG TAB PO SCH (08:55)
[2018-05-05] MEDS: GABAPENTIN 400 MG CAP PO SCH ×3 (08:55→21:34)
[2018-05-05] MEDS: FINASTERIDE 5 MG TAB PO SCH (08:55)
[2018-05-05] MEDS: POLYETHYLENE GLYCOL 3350 17 GM POWD.PACK PO SCH (08:56)
[2018-05-05] MEDS: TAMSULOSIN 0.4 MG CAP.ER.24H PO SCH ×2 (08:56→21:36)
[2018-05-05] MEDS: SENNOSIDES 8.6 MG TAB PO SCH ×2 (08:56→21:34)
[2018-05-05] MEDS: SIMETHICONE 80 MG CHEWABLE PO SCH ×2 (08:56→21:35)
[2018-05-05] MEDS: ONDANSETRON ODT 8 MG TAB.RAPDIS PO SCH ×2 (08:56→21:36)
[2018-05-05] MEDS: NICOTINE 21MG/24HR PATCH TRANSDERM SCH (08:57)
[2018-05-05] MEDS: CHOLESTYRAMINE (WITH SUGAR) 4 GM PACKET PO SCH ×2 (08:57→17:23)
[2018-05-05] MEDS: LIPASE 5,000/PROTEASE 17,000/AMYLASE 24,000 PO SCH ×3 (08:58→17:23)
[2018-05-05] MEDS: SODIUM CHLORIDE 0.9% 1,000 ML IV SCH (10:01)
[2018-05-05 11:16] LABS: Glucose,Whole Blood 115 mg/dL (75-99)
[2018-05-05] MEDS: BENZOCAINE/MENTHOL LOZENG 1 EACH LOZENGE MUCOUS MEM PRN ×3 (13:11→23:50)
--- NOTE | 2018-05-05 14:55 | P.PN ---
Subjective Progress Note Date: 05/04/18 Principal diagnosis: Shortness of breath Mr. Cameron is a pleasant 67 year old male patient who presented for increased dyspnea and shortness of breath. He apparently was recently diagnosed with stage IV pancreatic carcinoma back in January of this year and been undergoing chemotherapy with Abraxane and Gemzar through the [facility]. He is status post two treatments of gemzar and abraxane. Mr. Cameron has muliple co- morbidies aside this new diagnosis of carcinoma including COPD, Diabetes Mellitus, Hypertension, Prostate Disorder, Vascular Disorder, CHF, edema to lower extremities, renal disease, urinary hesistancy requiring straight cath, CABG with stents on plavix, and Atrial fibrillation on xarelto. 05/04/2018 Patient is seen and evaluated in the room for follow-up; patient reports improvement in rigors and chills since admission; patient remains on Levaquin 750 mg daily; patient continues to complain of generalized edema especially both lower extremities; bilateral lower extremity venous Doppler is negative; patient relates that he had CABG with stents and has been on Plavix and Xarelto for atrial fibrillation; patient also relates that he was going to be initiated on IV Lasix infusion since he had no response to oral Lasix; patient will be started on IV Lasix infusion at 10 mg per hour Objective - Vital Signs Vital signs: Vital Signs Temp 98.4 F 05/04/18 13:00 Pulse 94 05/04/18 17:00 Resp 16 05/04/18 16:42 BP 134/62 05/04/18 13:00 Pulse Ox 95 05/04/18 13:00 Intake & Output 05/03/18 05/04/18 05/04/18 18:59 06:59 18:59 Intake Total 650 100 Output Total 860 1300 300 Balance -210 -1200 -300 Weight 103.5 kg 103.873 kg 103.873 kg Intake: Intake, IV Titration 650 Amount Sodium Chloride 0.9% 1, 150 000 ml @ 150 mls/hr IV . Q6H40M [facility] Rx#:[id number] Sodium Chloride 0.9% 500 500 ml 500 ml @ 1000 mls/hr IV Q35M [facility] Rx#:[id number] Oral 100 Output: Urine 860 1300 300 Straight 860 Uretheral (Marx) 300 Other: Voiding Method Indwelling Catheter Indwelling Catheter Indwelling Catheter # Voids 4 - Exam Head exam: Normocephalic atraumatic Eye exam: non-icteric sclera, normal appearance, PERRL ENT exam: normal oropharynx Neck exam: Supple, no lymphadenopathy, Respiratory exam: Blateral decreased breath sounds at bases Cardiovascular Exam: irregular rate, rhythm GI/Abdominal exam: Obese, soft, tenderness Extremities exam: pedal edema (+3 bilaterally) left greater right Neurological exam: Non focal Psychiatric exam: normal affect, non focal - Labs CBC & Chem 7: 05/05/18 07:44 05/05/18 07:44 Labs: Abnormal Lab Results - Last 24 Hours (Table) 05/03/18 05/04/18 05/04/18 Range/Units 20:39 08:49 11:27 WBC 2.6 L (3.8-10.6) k/uL RBC 3.30 L (4.30-5.90) m/uL Hgb 7.3 L (13.0-17.5) gm/dL Hct 24.3 L (39.0-53.0) % MCV 73.4 L (80.0-100.0) fL MCH 22.1 L (25.0-35.0) pg MCHC 30.2 L (31.0-37.0) g/dL RDW 18.3 H (11.5-15.5) % Lymphocytes # 0.2 L (1.0-4.8) k/uL Sodium (137-145) mmol/L POC Glucose (mg/dL) 232 H 121 H (75-99) mg/dL Calcium (8.4-10.2) mg/dL Alkaline Phosphatase (38-126) U/L Total Protein (6.3-8.2) g/dL Albumin (3.5-5.0) g/dL 05/04/18 05/04/18 Range/Units 11:27 11:43 WBC (3.8-10.6) k/uL RBC (4.30-5.90) m/uL Hgb (13.0-17.5) gm/dL Hct (39.0-53.0) % MCV (80.0-100.0) fL MCH (25.0-35.0) pg MCHC (31.0-37.0) g/dL RDW (11.5-15.5) % Lymphocytes # (1.0-4.8) k/uL Sodium 135 L (137-145) mmol/L POC Glucose (mg/dL) 130 H (75-99) mg/dL Calcium 8.3 L (8.4-10.2) mg/dL Alkaline Phosphatase 166 H (38-126) U/L Total Protein 5.6 L (6.3-8.2) g/dL Albumin 2.6 L (3.5-5.0) g/dL Microbiology - Last 24 Hours (Table) 05/02/18 23:15 Blood Culture - Preliminary Blood No Growth after 24 hours Assessment and Plan Assessment: 1. Metastatic Pancreatic Cancer - Treatment through [facility] - Status Post 2 weekly infusions of Gemcitabine and Abraxane - Currently on hold and will follow-up to resume treatment at [facility] with our medical oncology office - Please obtain all records from [place] 2. Subjective fever and Chills: Afebrile since admission: - English CUlture Pending; patient remains on IV Levaquin 750 mg daily UA/Culture pending 3. Leukopenia - Secondary to chemotherapy - Monitor for s/s of infection. If WBC less than 1.5 or Neuts less than 0.8 may initiate Zarxio 4. Normocytic Anemia: Secondary to chemotherapy - If less than 7 transfuse 5. BLE Edema - Dopplers negative - - Per patient he was going to be initiated on IV Lasix drip - We will start patient on IV Lasix 10 mg per hour - We will consult cardiology if fails to diurese 6. Urinary Retention: - Patient remains on Proscar 5 mg daily and Flomax 0.4 mg twice a day - urology following, catheter 7. Hyperlipidemia; continue with home dose of Lipitor 80 mg daily at bedtime 8. Diabetes mellitus type 1 - Continue with Levemir 80 units subcu daily at bedtime - We will continue with Accu-Cheks with insulin sliding scale DVT prophylaxis; SCDs CODE STATUS; full code Time with Patient: Greater than 30
[2018-05-05 17:07] LABS: Glucose,Whole Blood 165 mg/dL (75-99)
[2018-05-05 21:00] LABS: Glucose,Whole Blood 298 mg/dL (75-99)
[2018-05-05] MEDS: ATORVASTATIN 80 MG TAB PO SCH (21:34)
[2018-05-05] MEDS: INSULIN DETEMIR 100 UNIT/ML 10 ML VIAL SQ SCH (21:35)
[2018-05-06] MEDS: IPRATROPIUM-ALBUTEROL 3 ML NEB INHALATION SCH ×8 (00:01→23:46)
[2018-05-06 04:46] LABS: Glucose,Whole Blood 50 mg/dL (75-99)
[2018-05-06] MEDS: HYDROcodone/APAP 10-325MG 1 EACH TAB PO PRN ×4 (04:48→21:35)
[2018-05-06 04:57] LABS: Glucose,Whole Blood 53 mg/dL (75-99)
[2018-05-06 05:27] LABS: Glucose,Whole Blood 126 mg/dL (75-99)
[2018-05-06] MEDS: SUCRALFATE 1 GM TAB PO SCH ×4 (06:56→21:26)
[2018-05-06 07:11] LABS: Glucose,Whole Blood 108 mg/dL (75-99)
[2018-05-06 07:29] LABS: Anisocytosis Slight; Basophils % (A) 1 %; Eosinophils % (A) 2 %; HCT 23.9 % (39.0-53.0); HGB 7.4 gm/dL (13.0-17.5); Hypochromasia Marked; Lymphocytes # (A) 0.2 k/uL (1.0-4.8); Lymphocytes % (A) 12 %; MCH 22.7 pg (25.0-35.0); MCHC 31.1 g/dL (31.0-37.0); MCV 73.1 fL (80.0-100.0); Mean Platelet Volume 8.9; Microcytosis Moderate; Monocytes % (A) 2 %; Neutrophils # (A) 1.1 k/uL (1.3-7.7); Neutrophils % (A) 81 %; Platelet Count 210 k/uL (150-450); Poikilocytosis Slight; RBC 3.27 m/uL (4.30-5.90); RDW 19.2 % (11.5-15.5)
[2018-05-06] MEDS: INSULIN ASPART 100 UNIT/ML 1 ML 10 ML VIAL SQ SCH ×4 (07:31→21:38)
[2018-05-06 07:58] LABS: WBC 1.4 k/uL (3.8-10.6)
[2018-05-06] MEDS: FUROSEMIDE 10 MG/ML 4 ML VIAL IV SCH ×3 (08:28→23:47)
[2018-05-06] MEDS: GABAPENTIN 400 MG CAP PO SCH ×3 (08:28→21:34)
[2018-05-06] MEDS: NICOTINE 21MG/24HR PATCH TRANSDERM SCH (08:28)
[2018-05-06] MEDS: CHOLECALCIFEROL 400 UNIT TAB PO SCH (08:28)
[2018-05-06] MEDS: FINASTERIDE 5 MG TAB PO SCH (08:28)
[2018-05-06] MEDS: CYANOCOBALAMIN 500 MCG TAB PO SCH (08:28)
[2018-05-06] MEDS: LIPASE 5,000/PROTEASE 17,000/AMYLASE 24,000 PO SCH ×3 (08:28→17:36)
[2018-05-06] MEDS: DIGOXIN 125 MCG TAB PO SCH (08:29)
[2018-05-06] MEDS: ONDANSETRON ODT 8 MG TAB.RAPDIS PO SCH ×2 (08:29→21:26)
[2018-05-06] MEDS: TAMSULOSIN 0.4 MG CAP.ER.24H PO SCH ×2 (08:29→21:26)
[2018-05-06] MEDS: SIMETHICONE 80 MG CHEWABLE PO SCH ×2 (08:29→21:26)
[2018-05-06] MEDS: FERROUS SULFATE 325 MG TAB PO SCH (08:29)
[2018-05-06] MEDS: CHOLESTYRAMINE (WITH SUGAR) 4 GM PACKET PO SCH ×2 (08:30→17:36)
[2018-05-06] MEDS: SENNOSIDES 8.6 MG TAB PO SCH ×2 (08:30→21:30)
[2018-05-06] MEDS: POLYETHYLENE GLYCOL 3350 17 GM POWD.PACK PO SCH (08:30)
[2018-05-06] MEDS: MORPHINE SULFATE ER 30 MG TABLET PO PRN ×3 (08:41→21:34)
[2018-05-06] MEDS: CLOTRIMAZOLE 1% CREAM 15 GM TUBE TOPICAL SCH ×2 (08:45→21:27)
--- NOTE | 2018-05-06 09:23 | P.CRDCN ---
History of Present Illness Consult date: 05/06/18 Chief complaint: Bilateral lower extremities edema History of present illness: This is unfortunate 67-year-old gentleman with a past medical history significant for coronary artery disease and status post coronary artery bypass grafting as well as coronary artery stenting, the details are unknown at this point, all of that was done through [facility] as well as [facility], beside that the patient does have diabetes, hypertension, dyslipidemia, chronic kidney disease. More importantly the patient also was diagnosed with stage IV pancreatic carcinoma in January 2018 and he did undergo chemotherapy throughout [facility] as well. The patient presented to the hospital this time complaining of bilateral lower extremities edema started few days before he came in. The swelling in the legs has developed fairly quickly and the patient didn't gain about 5 pounds within 2 days. Also he was describing a worsening exertional dyspnea and beside that he was having orthopnea. He does have chronic exertional dyspnea from before but he states clearly that the dyspnea has gotten worse. No dizziness or lightheadedness. No loss of consciousness or syncope. He did not have any symptoms of chest pain or chest discomfort. The EKG showed sinus rhythm without any ischemic ST or T-wave abnormalities. The BNP was checked and came in to be around 1000. The chest x-ray did not show any acute abnormalities. The patient was started on Lasix IV at 40 mg 3 times a day. The bilateral lower extremity edema has improved already. The patient has been making significant amount of urine. Beside keeping the patient on Lasix IV at this point I am going to obtain an echocardiogram was Doppler. I am worry about cardiomyopathy either because of the severe underlying coronary artery disease or because of the chemotherapy he was received. Past Medical History Past Medical History: COPD, Diabetes Mellitus, Hypertension, Prostate Disorder, Vascular Disorder Additional Past Medical History / Comment(s): cx. CHFemphysema, anemia, Stage 4 pancreatic cancer dx feb 2018, blister/yeast on scrotum, constipation, freq diarrhea with chemo, Triple A, edema to lower extremities History of Any Multi-Drug Resistant Organisms: None Reported Past Surgical History: Cholecystectomy, Coronary Bypass/CABG, Heart Catheterization With Stent Additional Past Surgical History / Comment(s): triple bipass 4 stents . carotid artery, Past Anesthesia/Blood Transfusion Reactions: Blood Transfusion Reaction Additional Past Anesthesia/Blood Transfusion Reaction / Comment(s): 4 days after fever Date of Last Stent Placement:: 2003 Past Psychological History: Depression Smoking Status: Current every day smoker Past Alcohol Use History: None Reported Past Drug Use History: None Reported - Past Family History Father Family Medical History: Myocardial Infarction ([place]) Mother Additional Family Medical History / Comment(s): blood clotting disease, triple bypass Brother(s) Additional Family Medical History / Comment(s): leukemia Medications and Allergies Home Medications Medication Instructions Recorded Confirmed Type Albuterol Inhaler [Ventolin Hfa 1 puff INHALATION RT-Q4H PRN 05/02/18 05/02/18 History Inhaler] Atorvastatin [Lipitor] 80 mg PO HS 05/02/18 05/02/18 History Cholecalciferol [Vitamin D3] 800 unit PO DAILY 05/02/18 05/02/18 History Cyanocobalamin (Vitamin B-12) 1,000 mcg PO DAILY 05/02/18 05/02/18 History [Vitamin B-12] Digoxin [Lanoxin] 125 mcg PO DAILY 05/02/18 05/02/18 History Ferrous Sulfate [Feosol] 325 mg PO DAILY 05/02/18 05/02/18 History Finasteride [Proscar] 5 mg PO DAILY 05/02/18 05/02/18 History Furosemide [Lasix] 40 mg PO TID 05/02/18 05/02/18 History Gabapentin [Neurontin] 400 mg PO TID 05/02/18 05/02/18 History HYDROcodone/APAP 10-325MG [Sparks 1 tab PO Q4HR PRN 05/02/18 05/02/18 History 10-325] Insulin Aspart [NovoLOG Flexpen] 19 - 23 units SQ AC-TID 05/02/18 05/02/18 History Insulin Glargine [Lantus] 80 unit SQ HS 05/02/18 05/03/18 History Ketoconazole 2% Cream [Nizoral 2%] 1 applic TOPICAL BID 05/02/18 05/02/18 History Lisinopril [Zestril] 2.5 mg PO DAILY 05/02/18 05/02/18 History Melatonin 3 mg PO HS PRN 05/02/18 05/02/18 History Metoprolol Tartrate [Lopressor] 50 mg PO BID 05/02/18 05/02/18 History Morphine Sulfate ER [Ms Contin] 30 mg PO Q6HR PRN 05/02/18 05/03/18 History Ondansetron HCl 8 mg PO Q12HR 05/02/18 05/02/18 History Polyethylene Glycol 3350 [Miralax] 17 gm PO DAILY 05/02/18 05/02/18 History Prochlorperazine [Compazine] 10 mg PO Q6H PRN 05/02/18 05/02/18 History Sennosides [Senokot] 17.2 mg PO BID 05/02/18 05/02/18 History Sucralfate [Carafate] 1 gm PO QID 05/02/18 05/02/18 History Tamsulosin [Flomax] 0.4 mg PO BID 05/02/18 05/02/18 History Tiotropium [place] [Spiriva 2 spray INHALATION RT-DAILY 05/02/18 05/02/18 History Respimat] Allergies Allergy/AdvReac Type Severity Reaction Status Date / Time fluticasone Allergy Unknown Verified 05/03/18 04:52 roflumilast Allergy Unknown Verified 05/03/18 04:52 saxagliptin Allergy Unknown Verified 05/03/18 04:52 terazosin Allergy low blood Verified 05/03/18 04:52 pressure Physical Exam Vitals: Vital Signs Temp Pulse Pulse Resp BP BP Pulse Ox 05/06/18 08:55 88 05/06/18 08:44 88 05/06/18 05:00 99.6 F 113 H 20 130/59 95 05/06/18 04:27 92 05/06/18 04:17 92 05/06/18 00:12 95 05/06/18 00:05 95 05/05/18 23:44 97.9 F 91 18 145/67 97 05/05/18 22:03 97.8 F 101 H 20 127/61 97 05/05/18 21:33 98.4 F 111 H 24 129/58 97 05/05/18 21:23 99.1 F 117 H 21 148/67 98 05/05/18 16:36 94 05/05/18 16:26 90 05/05/18 13:30 97.8 F 96 18 128/63 100 05/05/18 11:36 92 05/05/18 11:26 90 Intake and Output 05/05/18 05/06/18 05/06/18 22:59 06:59 14:59 Intake Total 600 0 Output Total 1200 2800 Balance -600 -2800 Intake: Oral 600 Blood Product 0 0 Rc As-1 Unit 0 0 [id number] Output: Urine 1200 2800 Uretheral (Marx) 1200 1300 Other: Voiding Method Indwelling Catheter Weight 108 kg - Constitutional General appearance: no acute distress - Respiratory Respiratory: bilateral: diminished - Cardiovascular Rhythm: regular Heart sounds: normal: S1, S2 Abnormal Heart Sounds: systolic murmur Results 05/06/18 06:46 05/05/18 07:44 CBC 05/06/18 Range/Units 06:46 WBC 1.4 L* (3.8-10.6) k/uL RBC 3.27 L (4.30-5.90) m/uL Hgb 7.4 L (13.0-17.5) gm/dL Hct 23.9 L (39.0-53.0) % Plt Count 210 (150-450) k/uL Current Medications Generic Name Dose Route Start Last Admin Trade Name Freq PRN Reason Stop Dose Admin Hydrocodone Bitart/Acetaminophen 1 each 05/03/18 05:57 05/06/18 04:48 Sparks 10 PO 1 each Q4HR PRN Administration Pain Albuterol/Ipratropium 3 ml 05/03/18 04:00 05/06/18 08:44 Duoneb 0.5 Mg-3 Mg/3 Ml Soln INHALATION 3 ml RT-Q4H [facility] Administration Lipase/Protease/Amylase 10 each 05/05/18 08:30 05/06/18 08:[address] 5,000 Unit Capsule PO 10 each PC-TID [facility] Administration Atorvastatin Calcium 80 mg 05/03/18 21:00 05/05/18 21:34 Lipitor PO 80 mg HS [facility] Administration Benzocaine/Menthol 1 each 05/05/18 11:35 05/05/18 23:50 Cepacol Lozenge MUCOUS MEM 1 each Q4HR PRN Administration Cough Cholecalciferol 800 unit 05/03/18 09:00 05/06/18 08:28 Vitamin D3 PO 800 unit DAILY [facility] Administration Cholestyramine Resin 4 gm 05/05/18 10:00 05/06/18 08:30 Questran PO 4 gm BID@1000,1800 [facility] Administration Clotrimazole 1 applic 05/03/18 09:00 05/06/18 08:45 Lotrimin Cream TOPICAL 1 applic BID [facility] Administration Cyanocobalamin 1,000 mcg 05/03/18 09:00 05/06/18 08:28 Vitamin B-12 PO 1,000 mcg DAILY [facility] Administration Digoxin 125 mcg 05/03/18 09:00 05/06/18 08:29 Lanoxin PO 125 mcg DAILY [facility] Administration Ferrous Sulfate 325 mg 05/03/18 09:00 05/06/18 08:29 Feosol PO 325 mg DAILY [facility] Administration Finasteride 5 mg 05/03/18 09:00 05/06/18 08:28 Proscar PO 5 mg DAILY [facility] Administration Furosemide 40 mg 05/05/18 02:00 05/06/18 08:28 Lasix IV 40 mg Q8HR [facility] Administration Gabapentin 400 mg 05/03/18 09:00 05/06/18 08:28 Neurontin PO 400 mg TID [facility] Administration Insulin Aspart 0 unit 05/03/18 07:30 05/06/18 07:31 Novolog SQ [facility] Protocol Insulin Detemir 80 unit 05/03/18 21:00 05/05/18 21:35 Levemir SQ 80 unit HS [facility] Administration Melatonin 3 mg 05/03/18 05:57 Melatonin PO HS PRN Insomnia Morphine Sulfate 30 mg 05/03/18 06:02 05/06/18 08:41 Ms Contin PO 30 mg Q6HR PRN Administration Pain Nicotine 1 patch 05/03/18 09:00 05/06/18 08:28 Habitrol 21mg/24hr Patch TRANSDERM 1 patch DAILY [facility] Administration Ondansetron HCl 8 mg 05/03/18 09:00 05/06/18 08:29 Zofran Odt PO 8 mg Q12HR [facility] Administration Polyethylene Glycol 17 gm 05/03/18 09:00 05/06/18 08:30 Miralax PO Not Given DAILY [facility] Prochlorperazine Maleate 10 mg 05/03/18 05:57 Compazine PO Q6H PRN Nausea Senna 17.2 mg 05/03/18 09:00 05/06/18 08:30 Senokot PO Not Given BID [facility] Simethicone 240 mg 05/05/18 21:00 05/06/18 08:29 Mylicon Chew PO 240 mg BID [facility] Administration Sucralfate 1 gm 05/03/18 07:30 05/06/18 06:56 Carafate PO 1 gm ACHS [facility] Administration Tamsulosin HCl 0.4 mg 05/03/18 09:00 05/06/18 08:29 Flomax PO 0.4 mg BID [facility] Administration Intake and Output 05/05/18 05/06/18 05/06/18 22:59 06:59 14:59 Intake Total 600 0 Output Total 1200 2800 Balance -600 -2800 Intake: Oral 600 Blood Product 0 0 Rc As-1 Unit 0 0 [id number] Output: Urine 1200 2800 Uretheral (Marx) 1200 1300 Other: Voiding Method Indwelling Catheter Weight 108 kg 05/06/18 06:46 05/05/18 07:44 Assessment and Plan Assessment: Assessment #1 congestive heart failure exacerbation with a predominantly right heart failure, and known if it's due to systolic or diastolic dysfunction at this point #2 bilateral lower extremities edema secondary to the above #3 known CAD and status post revascularization, surgically and percutaneous the , the details are unknown. #4 multiple comorbidities including diabetes, hypertension, dyslipidemia #5 stage IV pancreatic cancer. Plan #1 continue the current dose of Lasix IV. The patient has been making significant amount of urine #2 continue monitor the kidney function and electrolytes #3 obtain an echocardiogram was Doppler #4 follow-up with the patient. Thank you for allowing us participate in his care
[2018-05-06 11:58] LABS: Glucose,Whole Blood 119 mg/dL (75-99)
--- NOTE | 2018-05-06 15:03 | P.PN ---
Subjective Progress Note Date: 05/05/18 Principal diagnosis: Shortness of breath Mr. Cameron is a pleasant 67 year old male patient who presented for increased dyspnea and shortness of breath. He apparently was recently diagnosed with stage IV pancreatic carcinoma back in January of this year and been undergoing chemotherapy with Abraxane and Gemzar through the [facility]. He is status post two treatments of gemzar and abraxane. Mr. Cameron has muliple co- morbidies aside this new diagnosis of carcinoma including COPD, Diabetes Mellitus, Hypertension, Prostate Disorder, Vascular Disorder, CHF, edema to lower extremities, renal disease, urinary hesistancy requiring straight cath, CABG with stents on plavix, and Atrial fibrillation on xarelto. 05/04/2018 Patient is seen and evaluated in the room for follow-up; patient reports improvement in rigors and chills since admission; patient remains on Levaquin 750 mg daily; patient continues to complain of generalized edema especially both lower extremities; bilateral lower extremity venous Doppler is negative; patient relates that he had CABG with stents and has been on Plavix and Xarelto for atrial fibrillation; patient also relates that he was going to be initiated on IV Lasix infusion since he had no response to oral Lasix; patient will be started on IV Lasix infusion at 10 mg per hour 05/05/2018 Patient is seen at bedside for follow-up; denies any further fever and chills; patient remains afebrile with a temperature of 97.8 pulse of 96 and blood pressure 128/63; he is saturating 100% on room air Labs are reviewed showing a white blood count of 2.5 with hemoglobin 7.1 and platelet count of 174; chemical profile is stable. Patient continues to complain of generalized his edema especially both lower extremities; patient is resumed on Lasix 40 mg IV every 12 hours; we will consult cardiology for possible IV Lasix infusion Patient remains on Levaquin 750 mg IV daily for neutropenic fever Objective - Vital Signs Vital signs: Vital Signs Temp 99.0 F 05/05/18 05:26 Pulse 92 05/05/18 11:36 Resp 16 05/05/18 05:26 BP 120/55 05/05/18 05:26 Pulse Ox 96 05/05/18 05:26 Intake & Output 05/04/18 05/05/18 05/05/18 18:59 06:59 18:59 Intake Total 100 920 Output Total 300 2650 Balance -200 -1730 Weight 103.873 kg 101.4 kg Intake: Intake, IV Titration 0 Amount Sodium Chloride 0.9% 1, 0 000 ml @ 150 mls/hr IV . Q6H40M [facility] Rx#:[id number] Oral 100 920 Output: Urine 300 2650 Uretheral (Marx) 300 Other: Voiding Method Indwelling Catheter Indwelling Catheter Indwelling Catheter # Voids 4 4 - Exam Head exam: Normocephalic atraumatic Eye exam: non-icteric sclera, normal appearance, PERRL ENT exam: normal oropharynx Neck exam: Supple, no lymphadenopathy, Respiratory exam: Blateral decreased breath sounds at bases Cardiovascular Exam: irregular rate, rhythm GI/Abdominal exam: Obese, soft, tenderness Extremities exam: pedal edema (+3 bilaterally) left greater right Neurological exam: Non focal Psychiatric exam: normal affect, non focal - Labs CBC & Chem 7: 05/06/18 06:46 05/05/18 07:44 Labs: Abnormal Lab Results - Last 24 Hours (Table) 05/04/18 05/04/18 05/05/18 Range/Units 17:28 20:34 05:55 WBC (3.8-10.6) k/uL RBC (4.30-5.90) m/uL Hgb (13.0-17.5) gm/dL Hct (39.0-53.0) % MCV (80.0-100.0) fL MCH (25.0-35.0) pg MCHC (31.0-37.0) g/dL RDW (11.5-15.5) % Lymphocytes # (1.0-4.8) k/uL Sodium (137-145) mmol/L POC Glucose (mg/dL) 159 H 139 H 107 H (75-99) mg/dL Calcium (8.4-10.2) mg/dL AST (17-59) U/L ALT (21-72) U/L Alkaline Phosphatase (38-126) U/L Total Protein (6.3-8.2) g/dL Albumin (3.5-5.0) g/dL 05/05/18 05/05/18 05/05/18 Range/Units 07:38 07:44 07:44 WBC 2.5 L (3.8-10.6) k/uL RBC 3.25 L (4.30-5.90) m/uL Hgb 7.1 L (13.0-17.5) gm/dL Hct 23.4 L (39.0-53.0) % MCV 72.2 L (80.0-100.0) fL MCH 21.8 L (25.0-35.0) pg MCHC 30.2 L (31.0-37.0) g/dL RDW 18.7 H (11.5-15.5) % Lymphocytes # 0.1 L (1.0-4.8) k/uL Sodium 134 L (137-145) mmol/L POC Glucose (mg/dL) 107 H (75-99) mg/dL Calcium 8.1 L (8.4-10.2) mg/dL AST 76 H (17-59) U/L ALT 92 H (21-72) U/L Alkaline Phosphatase 157 H (38-126) U/L Total Protein 5.4 L (6.3-8.2) g/dL Albumin 2.5 L (3.5-5.0) g/dL 05/05/18 Range/Units 11:15 WBC (3.8-10.6) k/uL RBC (4.30-5.90) m/uL Hgb (13.0-17.5) gm/dL Hct (39.0-53.0) % MCV (80.0-100.0) fL MCH (25.0-35.0) pg MCHC (31.0-37.0) g/dL RDW (11.5-15.5) % Lymphocytes # (1.0-4.8) k/uL Sodium (137-145) mmol/L POC Glucose (mg/dL) 115 H (75-99) mg/dL Calcium (8.4-10.2) mg/dL AST (17-59) U/L ALT (21-72) U/L Alkaline Phosphatase (38-126) U/L Total Protein (6.3-8.2) g/dL Albumin (3.5-5.0) g/dL Microbiology - Last 24 Hours (Table) 11/15/18 23:15 Blood Culture - Preliminary Blood No Growth after 48 hours Assessment and Plan Assessment: 1. Metastatic Pancreatic Cancer - Treatment through [facility] - Status Post 2 weekly infusions of Gemcitabine and Abraxane - Currently on hold and will follow-up to resume treatment at [facility] with our medical oncology office - Please obtain all records from [place] 2. Subjective fever and Chills: Afebrile since admission: - English CUlture Pending; patient remains on IV Levaquin 750 mg daily UA/Culture pending 3. Leukopenia - Secondary to chemotherapy - Monitor for s/s of infection. If WBC less than 1.5 or Neuts less than 0.8 may initiate Zarxio 4. Normocytic Anemia: Secondary to chemotherapy - If less than 7 transfuse 5. BLE Edema - Dopplers negative - - Per patient he was going to be initiated on IV Lasix drip - We will start patient on IV Lasix 10 mg per hour - We will consult cardiology if fails to diurese 6. Urinary Retention: - Patient remains on Proscar 5 mg daily and Flomax 0.4 mg twice a day - urology following, catheter 7. Hyperlipidemia; continue with home dose of Lipitor 80 mg daily at bedtime 8. Diabetes mellitus type 1 - Continue with Levemir 80 units subcu daily at bedtime - We will continue with Accu-Cheks with insulin sliding scale DVT prophylaxis; SCDs CODE STATUS; full code Time with Patient: Greater than 30
[2018-05-06] MEDS ORDERED: LIDOCAINE VISCOUS 2% 15 ML CUP MUCOUS MEM PRN (15:30)
[2018-05-06] MEDS: BENZOCAINE/MENTHOL LOZENG 1 EACH LOZENGE MUCOUS MEM PRN ×2 (15:42→21:40)
[2018-05-06] MEDS ORDERED: VANCOMYCIN IV PER PHARMACY 1 EACH MISC MISCELLANE PRN (16:47)
[2018-05-06 17:00] LABS: Glucose,Whole Blood 135 mg/dL (75-99)
[2018-05-06] MEDS ORDERED: VANCOMYCIN 2,000 MG in SODIUM CHLORIDE 0.9% 500 ML 500 ML IVPB ONE (17:30)
--- NOTE | 2018-05-06 17:50 | P.PN ---
Subjective Progress Note Date: 05/06/18 Principal diagnosis: Shortness of breath Mr. Cameron is a pleasant 67 year old male patient who presented for increased dyspnea and shortness of breath. He apparently was recently diagnosed with stage IV pancreatic carcinoma back in January of this year and been undergoing chemotherapy with Abraxane and Gemzar through the [facility]. He is status post two treatments of gemzar and abraxane. Mr. Cameron has muliple co- morbidies aside this new diagnosis of carcinoma including COPD, Diabetes Mellitus, Hypertension, Prostate Disorder, Vascular Disorder, CHF, edema to lower extremities, renal disease, urinary hesistancy requiring straight cath, CABG with stents on plavix, and Atrial fibrillation on xarelto. 05/04/2018 Patient is seen and evaluated in the room for follow-up; patient reports improvement in rigors and chills since admission; patient remains on Levaquin 750 mg daily; patient continues to complain of generalized edema especially both lower extremities; bilateral lower extremity venous Doppler is negative; patient relates that he had CABG with stents and has been on Plavix and Xarelto for atrial fibrillation; patient also relates that he was going to be initiated on IV Lasix infusion since he had no response to oral Lasix; patient will be started on IV Lasix infusion at 10 mg per hour 05/05/2018 Patient is seen at bedside for follow-up; denies any further fever and chills; patient remains afebrile with a temperature of 97.8 pulse of 96 and blood pressure 128/63; he is saturating 100% on room air Labs are reviewed showing a white blood count of 2.5 with hemoglobin 7.1 and platelet count of 174; chemical profile is stable. Patient continues to complain of generalized his edema especially both lower extremities; patient is resumed on Lasix 40 mg IV every 12 hours; we will consult cardiology for possible IV Lasix infusion Patient remains on Levaquin 750 mg IV daily for neutropenic fever 05/06/2018 Patient is seen in follow-up; he is sitting at bedside with family also present in the room; complain of marked redness and pain of both lower extremities Vital signs are reviewed which showed a normal temperature of 98.6 pulse rate of 111 and blood pressure 144/61; patient continues to saturate well 96% on room air Lab review shows a drop in white blood count of 1.4 with an absolute neutrophil count of 1.1; chemical profile shows uptrending liver enzymes with AST/ALT of 76 /92 On examination patient's both lower extremities are markedly erythematous all the up to the and indurated and warm to touch Patient is currently on IV Levaquin for neutropenic fever; we will add IV vancomycin with pharmacy dosing service; monitor vital signs and CBC closely; we will request ID to see patient for further recommendations We will repeat liver enzymes; further recommendations after blood work is available Objective - Vital Signs Vital signs: Vital Signs Temp 98.6 F 05/06/18 12:05 Pulse 111 H 05/06/18 12:05 Resp 18 05/06/18 12:05 BP 144/61 05/06/18 12:05 Pulse Ox 96 05/06/18 12:05 Intake & Output 05/05/18 05/06/18 05/06/18 18:59 06:59 18:59 Intake Total 600 240 Output Total 1200 2800 900 Balance -1200 -2200 -660 Weight 108 kg 108 kg Intake: Oral 600 240 Blood Product 0 Rc As-1 Unit 0 [id number] Output: Urine 1200 2800 900 Uretheral (Marx) 1200 1300 Other: Voiding Method Indwelling Catheter Indwelling Catheter # Voids 1 - Exam Head exam: Normocephalic atraumatic Eye exam: non-icteric sclera, normal appearance, PERRL ENT exam: normal oropharynx Neck exam: Supple, no lymphadenopathy, Respiratory exam: Blateral decreased breath sounds at bases Cardiovascular Exam: irregular rate, rhythm GI/Abdominal exam: Obese, soft, tenderness Extremities exam: pedal edema (+3 bilaterally) left greater right Neurological exam: Non focal Psychiatric exam: normal affect, non focal - Labs CBC & Chem 7: 05/06/18 06:46 05/05/18 07:44 Labs: Abnormal Lab Results - Last 24 Hours (Table) 05/05/18 05/05/18 05/05/18 Range/Units 17:04 17:06 20:58 WBC (3.8-10.6) k/uL RBC (4.30-5.90) m/uL Hgb (13.0-17.5) gm/dL Hct (39.0-53.0) % MCV (80.0-100.0) fL MCH (25.0-35.0) pg RDW (11.5-15.5) % Neutrophils # (1.3-7.7) k/uL Lymphocytes # (1.0-4.8) k/uL POC Glucose (mg/dL) 165 H 298 H (75-99) mg/dL Crossmatch See Detail 05/06/18 05/06/18 05/06/18 Range/Units 04:42 04:52 05:26 WBC (3.8-10.6) k/uL RBC (4.30-5.90) m/uL Hgb (13.0-17.5) gm/dL Hct (39.0-53.0) % MCV (80.0-100.0) fL MCH (25.0-35.0) pg RDW (11.5-15.5) % Neutrophils # (1.3-7.7) k/uL Lymphocytes # (1.0-4.8) k/uL POC Glucose (mg/dL) 50 L 53 L 126 H (75-99) mg/dL Crossmatch 05/06/18 05/06/18 05/06/18 Range/Units 06:46 07:09 11:57 WBC 1.4 L* (3.8-10.6) k/uL RBC 3.27 L (4.30-5.90) m/uL Hgb 7.4 L (13.0-17.5) gm/dL Hct 23.9 L (39.0-53.0) % MCV 73.1 L (80.0-100.0) fL MCH 22.7 L (25.0-35.0) pg RDW 19.2 H (11.5-15.5) % Neutrophils # 1.1 L (1.3-7.7) k/uL Lymphocytes # 0.2 L (1.0-4.8) k/uL POC Glucose (mg/dL) 108 H 119 H (75-99) mg/dL Crossmatch Microbiology - Last 24 Hours (Table) 05/02/18 23:15 Blood Culture - Preliminary Blood No Growth after 72 hours Assessment and Plan Assessment: 1. Metastatic Pancreatic Cancer - Treatment through [facility] - Status Post 2 weekly infusions of Gemcitabine and Abraxane - Currently on hold and will follow-up to resume treatment at [facility] with our medical oncology office - [facility] 2. Subjective fever and Chills: Afebrile since admission: - English CUlture Pending; patient remains on IV Levaquin 750 mg daily UA/Culture pending 3. Leukopenia - Secondary to chemotherapy - Monitor for s/s of infection. If WBC less than 1.5 or Neuts less than 0.8 may initiate Zarxio 4. Normocytic Anemia: Secondary to chemotherapy - If less than 7 transfuse 5. BLE Edema - Dopplers negative - - Per patient he was going to be initiated on IV Lasix drip - We will start patient on IV Lasix 10 mg per hour - We will consult cardiology if fails to diurese 6. Urinary Retention: - Patient remains on Proscar 5 mg daily and Flomax 0.4 mg twice a day - urology following, catheter 7. Hyperlipidemia; continue with home dose of Lipitor 80 mg daily at bedtime 8. Diabetes mellitus type 1 - Continue with Levemir 80 units subcu daily at bedtime - We will continue with Accu-Cheks with insulin sliding scale DVT prophylaxis; SCDs CODE STATUS; full code Time with Patient: Greater than 30
--- NOTE | 2018-05-06 18:06 | P.PN ---
Subjective Progress Note Date: 05/06/18 Principal diagnosis: Metastatic Pancreatic Cancer - Liver, Increased LE Edema, Subjective Fevers, SOB Patient seen in follow-up today, bilateral lower extremities are worsened and now appears to have positive bilateral erythema which is extending to thigh. Objective - Vital Signs Vital signs: Vital Signs Temp 98.6 F 05/06/18 12:05 Pulse 90 05/06/18 16:16 Resp 18 05/06/18 12:05 BP 144/61 05/06/18 12:05 Pulse Ox 96 05/06/18 12:05 Intake & Output 05/05/18 05/06/18 05/06/18 18:59 06:59 18:59 Intake Total 600 240 Output Total 1200 2800 900 Balance -1200 -2200 -660 Weight 108 kg 108 kg Intake: Oral 600 240 Blood Product 0 Rc As-1 Unit 0 [id number] Output: Urine 1200 2800 900 Uretheral (Marx) 1200 1300 Other: Voiding Method Indwelling Catheter Indwelling Catheter # Voids 1 - Exam General appearance: alert Head exam: Normocephalic atraumatic Eye exam: non-icteric sclera, normal appearance, PERRL ENT exam: normal oropharynx Neck exam: Supple, no lymphadenopathy, Respiratory exam: Blateral decreased breath sounds at bases Cardiovascular Exam: irregular rate, rhythm GI/Abdominal exam: Obese, soft, tenderness Extremities exam: pedal edema (+3 bilaterally) left greater right, Bilateral erythema Neurological exam: Non focal Psychiatric exam: normal affect, non focal - Labs CBC & Chem 7: 05/06/18 06:46 05/05/18 07:44 Labs: Abnormal Lab Results - Last 24 Hours (Table) 05/05/18 05/05/18 05/06/18 Range/Units 17:04 20:58 04:42 WBC (3.8-10.6) k/uL RBC (4.30-5.90) m/uL Hgb (13.0-17.5) gm/dL Hct (39.0-53.0) % MCV (80.0-100.0) fL MCH (25.0-35.0) pg RDW (11.5-15.5) % Neutrophils # (1.3-7.7) k/uL Lymphocytes # (1.0-4.8) k/uL POC Glucose (mg/dL) 298 H 50 L (75-99) mg/dL Crossmatch See Detail 05/06/18 05/06/18 05/06/18 Range/Units 04:52 05:26 06:46 WBC 1.4 L* (3.8-10.6) k/uL RBC 3.27 L (4.30-5.90) m/uL Hgb 7.4 L (13.0-17.5) gm/dL Hct 23.9 L (39.0-53.0) % MCV 73.1 L (80.0-100.0) fL MCH 22.7 L (25.0-35.0) pg RDW 19.2 H (11.5-15.5) % Neutrophils # 1.1 L (1.3-7.7) k/uL Lymphocytes # 0.2 L (1.0-4.8) k/uL POC Glucose (mg/dL) 53 L 126 H (75-99) mg/dL Crossmatch 05/06/18 05/06/18 05/06/18 Range/Units 07:09 11:57 16:57 WBC (3.8-10.6) k/uL RBC (4.30-5.90) m/uL Hgb (13.0-17.5) gm/dL Hct (39.0-53.0) % MCV (80.0-100.0) fL MCH (25.0-35.0) pg RDW (11.5-15.5) % Neutrophils # (1.3-7.7) k/uL Lymphocytes # (1.0-4.8) k/uL POC Glucose (mg/dL) 108 H 119 H 135 H (75-99) mg/dL Crossmatch Microbiology - Last 24 Hours (Table) 05/02/18 23:15 Blood Culture - Preliminary Blood No Growth after 72 hours Assessment and Plan Plan: Assessment and Recommendations: 1. Metastatic Pancreatic Cancer - Treatment through [facility] - Status Post 2 weekly infusions of Gemcitabine and Abraxane - Currently on hold and will follow-up to resume treatment at [facility] with our medical oncology office - Please obtain all records from [facility] 2. Subjective fever and Chills: Afebrile since admission: - English CUlture Pending - Blood cultures neg at 24 hours. - UA - neg 3. Leukopenia - Secondary to chemotherapy - Monitor for s/s of infection. If WBC less than 1.5 or Neuts less than 0.8 may initiate Zarxio - Today WBC 1.4 and in presence of increased BLE erythema and hospitalization will add zarxio 4. Normocytic Anemia: Secondary to chemotherapy - If less than 7 transfuse 5. BLE Edema - Dopplers negative - worsening - cardiology following - IV abx 6. Urinary Retention: - urology following, catheter - This is a chronic issue per patient which initially started with recurrent stones. He utilizes a self straight catheterization at home 7. Diarrhea: - C-diff Negative - Monitor electrolytes - Stool Studies O and P, Fecal Leuks, and Culture ordered - Pancreatic Enzymes prior to meals - Jadyn 8. Afib: - Patient was previously treated with xarelto although this has been held per Oncology Team at [facility] in [place]. 9. CAB Stents in 2004: - Plavix was recently Stopped by Oncology team in [place] prior to starting chemotherapy and he was instructed to continue on baby aspirin daily.
[2018-05-06 20:38] LABS: Glucose,Whole Blood 186 mg/dL (75-99)
[2018-05-06] MEDS: ATORVASTATIN 80 MG TAB PO SCH (21:26)
[2018-05-06] MEDS: INSULIN DETEMIR 100 UNIT/ML 10 ML VIAL SQ SCH (21:35)
[2018-05-06] MEDS: FILGRASTIM-SNDZ 480 MCG/0.8 ML SYRINGE SQ SCH (22:09)
[2018-05-07] MEDS: HYDROcodone/APAP 10-325MG 1 EACH TAB PO PRN ×4 (04:03→20:11)
[2018-05-07 04:08] LABS: Glucose,Whole Blood 100 mg/dL (75-99)
[2018-05-07] MEDS: IPRATROPIUM-ALBUTEROL 3 ML NEB INHALATION SCH ×5 (04:22→21:32)
[2018-05-07] MEDS: VANCOMYCIN 2,000 MG in SODIUM CHLORIDE 0.9% 500 ML 500 ML IVPB SCH ×2 (06:49→16:42)
[2018-05-07 07:15] LABS: Glucose,Whole Blood 141 mg/dL (75-99)
[2018-05-07] MEDS: SENNOSIDES 8.6 MG TAB PO SCH ×2 (07:18→20:15)
[2018-05-07] MEDS: POLYETHYLENE GLYCOL 3350 17 GM POWD.PACK PO SCH (07:18)
[2018-05-07] MEDS: SUCRALFATE 1 GM TAB PO SCH ×4 (07:20→20:16)
[2018-05-07] MEDS: MORPHINE SULFATE ER 30 MG TABLET PO PRN ×3 (07:26→20:12)
[2018-05-07] MEDS: INSULIN ASPART 100 UNIT/ML 1 ML 10 ML VIAL SQ SCH ×4 (07:28→20:14)
[2018-05-07] MEDS: FUROSEMIDE 10 MG/ML 4 ML VIAL IV SCH ×2 (07:30→16:29)
[2018-05-07] MEDS: FERROUS SULFATE 325 MG TAB PO SCH (08:30)
[2018-05-07] MEDS: CYANOCOBALAMIN 500 MCG TAB PO SCH (08:30)
[2018-05-07] MEDS: GABAPENTIN 400 MG CAP PO SCH ×3 (08:30→20:17)
[2018-05-07] MEDS: TAMSULOSIN 0.4 MG CAP.ER.24H PO SCH ×2 (08:30→20:16)
[2018-05-07] MEDS: CHOLECALCIFEROL 400 UNIT TAB PO SCH (08:30)
[2018-05-07] MEDS: FINASTERIDE 5 MG TAB PO SCH (08:30)
[2018-05-07] MEDS: ONDANSETRON ODT 8 MG TAB.RAPDIS PO SCH ×2 (08:30→20:15)
[2018-05-07] MEDS: DIGOXIN 125 MCG TAB PO SCH (08:30)
[2018-05-07] MEDS: SIMETHICONE 80 MG CHEWABLE PO SCH ×2 (08:31→20:16)
[2018-05-07] MEDS: NICOTINE 21MG/24HR PATCH TRANSDERM SCH (08:31)
[2018-05-07] MEDS: CHOLESTYRAMINE (WITH SUGAR) 4 GM PACKET PO SCH ×2 (08:31→17:56)
[2018-05-07] MEDS: LIPASE 5,000/PROTEASE 17,000/AMYLASE 24,000 PO SCH ×3 (08:31→17:55)
[2018-05-07] MEDS: CLOTRIMAZOLE 1% CREAM 15 GM TUBE TOPICAL SCH ×2 (08:33→20:13)
[2018-05-07] MEDS: MAG HYDROX/AL HYDROX/SIMETH 30 ML, LIDOCAINE VISCOUS 30 ML, diphenhydrAMINE ELIXIR 75 M... PO SCH ×12 (10:21→20:17)
[2018-05-07 10:29] LABS: Anisocytosis Slight; Hypochromasia Marked; MCH 22.4 pg (25.0-35.0); MCHC 30.3 g/dL (31.0-37.0); MCV 73.9 fL (80.0-100.0); Mean Platelet Volume 7.2; Microcytosis Moderate; Platelet Count 193 k/uL (150-450); Poikilocytosis Slight; RBC 3.12 m/uL (4.30-5.90); RDW 19.4 % (11.5-15.5); WBC 3.6 k/uL (3.8-10.6)
[2018-05-07 10:42] LABS: ALT 102 U/L (21-72); AST 48 U/L (17-59); Albumin 2.2 g/dL (3.5-5.0); Alkaline Phosphatase 172 U/L (38-126); Anion Gap 7 mmol/L; Blood Urea Nitrogen 13 mg/dL (9-20); Calcium 7.9 mg/dL (8.4-10.2); Carbon Dioxide 27 mmol/L (22-30); Chloride 100 mmol/L (98-107); Glucose 136 mg/dL (74-99); Sodium 134 mmol/L (137-145); Total Bilirubin 0.6 mg/dL (0.2-1.3); Total Protein 4.9 g/dL (6.3-8.2)
--- NOTE | 2018-05-07 10:51 | ECHOF ---
Referral Reason:CHF MEASUREMENTS -------- HEIGHT: 172.7 cm WEIGHT: 108.0 kg BP: 130/59 IVSd: 1.4 cm (0.6 - 1.1) LVIDd: 3.8 cm (3.9 - 5.3) LVPWd: 1.4 cm (0.6 - 1.1) IVSs: 1.6 cm LVIDs: 2.7 cm LVPWs: 1.6 cm LAESV Index (A-L): 37.05 ml/m Ao Diam: 3.7 cm (2.0 - 3.7) AV Cusp: 1.8 cm (1.5 - 2.6) MV E Peter: 1.58 m/s MV DecT: 332 ms MV A Peter: 1.65 m/s MV E/A Ratio: 0.95 AV maxP.80 mmHg AV meanP.74 mmHg RAP: 5.00 mmHg RVSP: 22.48 mmHg FINDINGS -------- Resting tachycardia (HR>100bpm). This was a technically adequate study. The left ventricular size is normal. There is mild concentric left ventricular hypertrophy. Left ventricular systolic function is hyperdynamic with an estimated EF of >70%. LVOT obstruction due to hyperdynamic heart function. The right ventricle is normal in size and function. LA is moderately dilated 34-39 ml/m2 RA appears enlarged. Aortic valve is trileaflet and is mildly thickened. There is mlxb-rr-hwevktgx aortic regurgitation. There is no evidence of aortic stenosis. The mitral valve leaflets are mildly thickened. Mild mitral annular calcification present. There is trace to mild mitral regurgitation. The peak and mean MV gradients are 19.26mmHg 7.57mmHg as me asured by doppler. Tfdj-ng-hilctugx mitral stenosis. Trace tricuspid regurgitation present. Right ventricular systolic pressure is normal at < 35 mmHg. There is no evidence of pulmonary hypertension. The pulmonic valve was not well visualized. The aortic root size is normal. Normal inferior vena cava with normal inspiratory collapse consistent with estimated right atrial pre ssure of 5 mmHg. There is no pericardial effusion. CONCLUSIONS -------- 1. Resting tachycardia (HR>100bpm). 2. This was a technically adequate study. 3. The left ventricular size is normal. 4. There is mild concentric left ventricular hypertrophy. 5. Left ventricular systolic function is hyperdynamic with an estimated EF of >70%. 6. LVOT obstruction due to hyperdynamic heart function. 7. LA is moderately dilated 34-39 ml/m2 8. RA appears enlarged. 9. Aortic valve is trileaflet and is mildly thickened. 10. There is wugh-nr-bqutddby aortic regurgitation. 11. There is no evidence of aortic stenosis. 12. The mitral valve leaflets are mildly thickened. 13. Mild mitral annular calcification present. 14. There is trace to mild mitral regurgitation. 15. The peak and mean MV gradients are 19.26mmHg 7.57mmHg as measured by doppler. 16. Deev-bg-vduvlhid mitral stenosis. 17. Trace tricuspid regurgitation present. 18. Right ventricular systolic pressure is normal at < 35 mmHg. 19. There is no evidence of pulmonary hypertension. 20. The pulmonic valve was not well visualized. 21. The aortic root size is normal. 22. There is no pericardial effusion. IRON HANDLER: Dre Allan RDCS
[2018-05-07 11:46] LABS: Glucose,Whole Blood 166 mg/dL (75-99)
--- NOTE | 2018-05-07 12:00 | P.PN ---
Subjective Progress Note Date: 05/07/18 Principal diagnosis: Metastatic Pancreatic Cancer - Liver, Increased LE Edema, Subjective Fevers, SOB Patient seen in follow-up today, WBC mild improvement, Hemoglobin 7. Objective - Vital Signs Vital signs: Vital Signs Temp 98.2 F 05/07/18 05:00 Pulse 84 05/07/18 11:22 Resp 28 H 05/07/18 05:00 BP 95/40 05/07/18 05:00 Pulse Ox 93 L 05/07/18 05:00 Intake & Output 05/06/18 05/07/18 05/07/18 18:59 06:59 18:59 Intake Total 720 840 Output Total 2600 1550 Balance -1880 -710 Weight 108 kg 106 kg Intake: Intake, IV Titration 500 Amount Vancomycin 2,000 mg In 500 Sodium Chloride 0.9% 500 ml 500 ml @ 167 mls/hr IVPB ONCE ONE Rx#: [id number] Oral 720 340 Output: Urine 2600 1550 Uretheral (Marx) 1700 800 Other: Voiding Method Indwelling Catheter Indwelling Catheter - Exam General appearance: alert Head exam: Normocephalic atraumatic Eye exam: non-icteric sclera, normal appearance, PERRL ENT exam: normal oropharynx Neck exam: Supple, no lymphadenopathy, Respiratory exam: Blateral decreased breath sounds at bases Cardiovascular Exam: irregular rate, rhythm GI/Abdominal exam: Obese, soft, tenderness Extremities exam: pedal edema (+3 bilaterally) left greater right, Bilateral erythema Neurological exam: Non focal Psychiatric exam: normal affect, non focal - Labs CBC & Chem 7: 05/07/18 09:30 05/07/18 09:30 Labs: Abnormal Lab Results - Last 24 Hours (Table) 05/06/18 05/06/18 05/06/18 Range/Units 11:57 16:57 20:37 WBC (3.8-10.6) k/uL RBC (4.30-5.90) m/uL Hgb (13.0-17.5) gm/dL Hct (39.0-53.0) % MCV (80.0-100.0) fL MCH (25.0-35.0) pg MCHC (31.0-37.0) g/dL RDW (11.5-15.5) % Sodium (137-145) mmol/L Glucose (74-99) mg/dL POC Glucose (mg/dL) 119 H 135 H 186 H (75-99) mg/dL Calcium (8.4-10.2) mg/dL ALT (21-72) U/L Alkaline Phosphatase (38-126) U/L Total Protein (6.3-8.2) g/dL Albumin (3.5-5.0) g/dL 05/07/18 05/07/18 05/07/18 Range/Units 04:02 07:14 09:30 WBC 3.6 L (3.8-10.6) k/uL RBC 3.12 L (4.30-5.90) m/uL Hgb 7.0 L (13.0-17.5) gm/dL Hct 23.0 L (39.0-53.0) % MCV 73.9 L (80.0-100.0) fL MCH 22.4 L (25.0-35.0) pg MCHC 30.3 L (31.0-37.0) g/dL RDW 19.4 H (11.5-15.5) % Sodium (137-145) mmol/L Glucose (74-99) mg/dL POC Glucose (mg/dL) 100 H 141 H (75-99) mg/dL Calcium (8.4-10.2) mg/dL ALT (21-72) U/L Alkaline Phosphatase (38-126) U/L Total Protein (6.3-8.2) g/dL Albumin (3.5-5.0) g/dL 05/07/18 05/07/18 Range/Units 09:30 11:45 WBC (3.8-10.6) k/uL RBC (4.30-5.90) m/uL Hgb (13.0-17.5) gm/dL Hct (39.0-53.0) % MCV (80.0-100.0) fL MCH (25.0-35.0) pg MCHC (31.0-37.0) g/dL RDW (11.5-15.5) % Sodium 134 L (137-145) mmol/L Glucose 136 H (74-99) mg/dL POC Glucose (mg/dL) 166 H (75-99) mg/dL Calcium 7.9 L (8.4-10.2) mg/dL ALT 102 H (21-72) U/L Alkaline Phosphatase 172 H (38-126) U/L Total Protein 4.9 L (6.3-8.2) g/dL Albumin 2.2 L (3.5-5.0) g/dL Microbiology - Last 24 Hours (Table) 05/02/18 23:15 Blood Culture - Preliminary Blood No Growth after 96 hours Assessment and Plan Plan: Assessment and Recommendations: 1. Metastatic Pancreatic Cancer - Treatment through [facility] - Status Post 2 weekly infusions of Gemcitabine and Abraxane - Currently on hold and will follow-up to resume treatment at [facility] with our medical oncology office - Please obtain all records from [facility] - Explained to patient and that with his other current issues and decreased blood counts he will not receive chemotherapy this week as scheduled, he will need a appointment with Dr. Mcmahon next week and then chemotherapy maybe resumed at that time if his blood counts have improved. 2. Subjective fever and Chills: Afebrile since admission: - English CUlture Pending - Blood cultures neg at 24 hours. - UA - neg 3. Leukopenia - Secondary to chemotherapy - Monitor for s/s of infection. If WBC less than 1.5 or Neuts less than 0.8 may initiate Zarxio - Improved today, continue Zarxio, possible discontinue tomorrow - PLEASE RUN DIFFerential on CBC 4. Normocytic Anemia: Secondary to chemotherapy - If less than 7 transfuse - Will likely require transfusion tomorrow. 5. BLE Edema - Dopplers negative - worsening - cardiology following - IV abx 6. Urinary Retention: - urology following, catheter - This is a chronic issue per patient which initially started with recurrent stones. He utilizes a self straight catheterization at home 7. Diarrhea: - C-diff Negative - Monitor electrolytes - Stool Studies O and P, Fecal Leuks, and Culture ordered - Pancreatic Enzymes prior to meals - Questran 8. Afib: - Patient was previously treated with xarelto although this has been held per Oncology Team at [facility] in [place]. 9. CAB Stents in 2004: - Plavix was recently Stopped by Oncology team in [place] prior to starting chemotherapy and he was instructed to continue on baby aspirin daily. Patient with many questions today, most have been deferred to primary team as related to other medical problems. Ruthy Cuellar NP
[2018-05-07 12:14] LABS: Band Neutrophils % 3 %; Lymphocytes # (M) 0.14 k/uL (1.0-4.8); Monocytes # (M) 0.11 k/uL (0-1.0); Neutrophils % (M) 90 %; Nucleated Red Blood Cells 0 /100 WBC (0-0); Rouleaux Present; Total Cells Counted 100; Toxic Granulation Present
--- NOTE | 2018-05-07 15:10 | P.PN ---
Subjective This is a pleasant 67-year-old male past medical history significant for coronary artery disease and status post coronary artery bypass grafting as well as coronary artery stenting, the details are unknown at this point, all of that was done through [facility] as well as [facility], beside that the patient does have diabetes, hypertension, dyslipidemia, chronic kidney disease. More importantly the patient also was diagnosed with stage IV pancreatic carcinoma in January 2018 and he did undergo chemotherapy throughout [facility] as well. He presented to the hospital with significant lower extremity edema and has been receiving IV lasix 40 mg TID. He is seen and examined sitting up in the chair in no acute distress. He denies chest pain, increasing shortness of breath, dizziness or palpitations. He states his swelling has significantly improved since admission, although he still has moderate edema and redness. Echocardiogram obtained reveals hyperdynamic LV systolic function with ejection fraction greater than 70% LVOT obstruction secondary to hyperdynamic heart function, moderately dilated left atrium, mild to moderate aortic regurgitation , trace MR and mild-moderate mitral stenosis with mitral gradient 7.5 mmHg. Blood pressure 130/59 heart rate 113 afebrile and maintaining oxygen saturation on room air. Laboratory data reviewed, WBC 3.6 hgb 7, plt 193, sodium 134, potassium 4.0, creatinine 0.79. Currently maintained on atorvastatin 80 mg daily , digoxin 125 g daily, Lasix 40 mg IV 3 times a day. Telemetry tracings indicate sinus mechanism with PACs. As well as episodes of atrial tachycardia. Weight is down 2 kg from yesterday and he has a negative fluid balance of 3 liters for the previous 24 hours. GENERAL: Well-appearing, well-nourished and in no acute distress. NECK: Supple without JVD or thyromegaly. LUNGS: Breath sounds clear to auscultation bilaterally. Respiration equal and unlabored. No wheezes, rales or rhonchi. Diminished bilaterally. HEART: Regular rate and rhythm with systolic ejection murmur at the base, no rubs or gallops. S1 and S2 heard. EXTREMITIES: Normal range of motion, 2+ bilateral lower extremity edema and redness up above the knee. No clubbing or cyanosis. Peripheral pulses intact. ASSESSMENT Acute on chronic diastolic heart failure with hyperdynamic LV function. Bilateral lower extremity edema History of coronary artery disease status post angioplasty and bypass grafting Hypertension Dyslipidemia Diabetes mellitus Stage IV pancreatic cancer with metastasis COPD Carotid artery disease Chronic nicotine dependence PLAN Continue current medical regimen with lasix IV 40 mg TID. Lower extremity edema may be related to cellulitis as well with increasing redness and pain. Obtain records from previous cardiac procedures as well as diagnostic testing. We will continue to follow and make recommendations accordingly. Nurse Practitioner note has been reviewed, I agree with a documented findings and plan of care. Patient was seen and examined. Objective - Vital Signs Vital signs: Vital Signs Temp 98.0 F 05/07/18 11:50 Pulse 113 H 05/07/18 11:50 Resp 22 05/07/18 11:50 BP 130/59 05/07/18 11:50 Pulse Ox 96 05/07/18 11:50 Intake & Output 05/06/18 05/07/18 05/07/18 18:59 06:59 18:59 Intake Total 720 840 Output Total 2600 1550 Balance -1880 -710 Weight 108 kg 106 kg Intake: Intake, IV Titration 500 Amount Vancomycin 2,000 mg In 500 Sodium Chloride 0.9% 500 ml 500 ml @ 167 mls/hr IVPB ONCE ONE Rx#: [id number] Oral 720 340 Output: Urine 2600 1550 Uretheral (Marx) 1700 800 Other: Voiding Method Indwelling Catheter Indwelling Catheter - Labs CBC & Chem 7: 05/07/18 09:30 05/07/18 09:30 Labs: Abnormal Lab Results - Last 24 Hours (Table) 05/06/18 05/06/18 05/07/18 Range/Units 16:57 20:37 04:02 WBC (3.8-10.6) k/uL RBC (4.30-5.90) m/uL Hgb (13.0-17.5) gm/dL Hct (39.0-53.0) % MCV (80.0-100.0) fL MCH (25.0-35.0) pg MCHC (31.0-37.0) g/dL RDW (11.5-15.5) % Lymphocytes # (Manual) (1.0-4.8) k/uL Sodium (137-145) mmol/L Glucose (74-99) mg/dL POC Glucose (mg/dL) 135 H 186 H 100 H (75-99) mg/dL Calcium (8.4-10.2) mg/dL ALT (21-72) U/L Alkaline Phosphatase (38-126) U/L Total Protein (6.3-8.2) g/dL Albumin (3.5-5.0) g/dL 05/07/18 05/07/18 05/07/18 Range/Units 07:14 09:30 09:30 WBC 3.6 L (3.8-10.6) k/uL RBC 3.12 L (4.30-5.90) m/uL Hgb 7.0 L (13.0-17.5) gm/dL Hct 23.0 L (39.0-53.0) % MCV 73.9 L (80.0-100.0) fL MCH 22.4 L (25.0-35.0) pg MCHC 30.3 L (31.0-37.0) g/dL RDW 19.4 H (11.5-15.5) % Lymphocytes # (Manual) 0.14 L (1.0-4.8) k/uL Sodium 134 L (137-145) mmol/L Glucose 136 H (74-99) mg/dL POC Glucose (mg/dL) 141 H (75-99) mg/dL Calcium 7.9 L (8.4-10.2) mg/dL ALT 102 H (21-72) U/L Alkaline Phosphatase 172 H (38-126) U/L Total Protein 4.9 L (6.3-8.2) g/dL Albumin 2.2 L (3.5-5.0) g/dL 05/07/18 Range/Units 11:45 WBC (3.8-10.6) k/uL RBC (4.30-5.90) m/uL Hgb (13.0-17.5) gm/dL Hct (39.0-53.0) % MCV (80.0-100.0) fL MCH (25.0-35.0) pg MCHC (31.0-37.0) g/dL RDW (11.5-15.5) % Lymphocytes # (Manual) (1.0-4.8) k/uL Sodium (137-145) mmol/L Glucose (74-99) mg/dL POC Glucose (mg/dL) 166 H (75-99) mg/dL Calcium (8.4-10.2) mg/dL ALT (21-72) U/L Alkaline Phosphatase (38-126) U/L Total Protein (6.3-8.2) g/dL Albumin (3.5-5.0) g/dL Microbiology - Last 24 Hours (Table) 05/02/18 23:15 Blood Culture - Preliminary Blood No Growth after 96 hours
[2018-05-07 17:25] LABS: Glucose,Whole Blood 235 mg/dL (75-99)
[2018-05-07] MEDS: ceFAZolin IN SWFI 2 GM/20 ML SYRINGE IVP SCH (17:57)
[2018-05-07] MEDS: FILGRASTIM-SNDZ 480 MCG/0.8 ML SYRINGE SQ SCH (17:58)
[2018-05-07 20:02] LABS: Glucose,Whole Blood 126 mg/dL (75-99)
[2018-05-07] MEDS: ATORVASTATIN 80 MG TAB PO SCH (20:13)
[2018-05-07] MEDS: INSULIN DETEMIR 100 UNIT/ML 10 ML VIAL SQ SCH (20:14)
[2018-05-07] MEDS: BENZOCAINE/MENTHOL LOZENG 1 EACH LOZENGE MUCOUS MEM PRN (20:21)
[2018-05-07 21:23] LABS: Hemoglobin A1C 7.9 % (4.0-6.0)
[2018-05-08] MEDS: FUROSEMIDE 10 MG/ML 4 ML VIAL IV SCH ×3 (00:14→16:46)
[2018-05-08] MEDS: ceFAZolin IN SWFI 2 GM/20 ML SYRINGE IVP SCH ×4 (00:14→18:13)
[2018-05-08] MEDS: IPRATROPIUM-ALBUTEROL 3 ML NEB INHALATION SCH ×8 (00:21→23:29)
[2018-05-08] MEDS: HYDROcodone/APAP 10-325MG 1 EACH TAB PO PRN ×4 (02:36→21:44)
[2018-05-08 02:40] LABS: Glucose,Whole Blood 104 mg/dL (75-99)
[2018-05-08] MEDS ORDERED: VANCOMYCIN TROUGH DUE 1 EACH MISC MISCELLANE ONE (05:00)
--- NOTE | 2018-05-08 05:31 | CONS ---
CONSULTATION DATE OF SERVICE: 05/07/2018 REASON FOR CONSULTATION: Bilateral lower extremity cellulitis. HISTORY OF PRESENT ILLNESS: The patient is a 67-year-old, male with a past medical history significant for recent diagnosis of stage IV pancreatic carcinoma in of 2017 for which the patient has been undergoing chemotherapy in the outpatient setting at the [facility]. The patient has been brought into the ER at [facility] on 05/02/2018, about 5 days ago with chief complaints of bilateral leg pain, edema along with rigors and chills. The patient was evaluated by the ER physician and on presentation, he did have lower extremity Dopplers, those were negative for DVT. She also had a CT angiogram that was no evidence for pulmonary embolism and no pulmonary infiltrate. The patient did have blood culture that has been negative. His white count on admission was 5.5. It did dip down to 1.4 yesterday however it is 3.6 today. The patient was initially with Levaquin. Vancomycin was added yesterday and Infectious Disease was consulted for further recommendation regarding lower extremity cellulitis and antibiotic therapy. The patient did have mild dull aching pain to the leg, mostly on the left leg which is more so in the right leg. The pain intensity is 3 to 4 out of 10 and no radiation. Currently with no blister formation or any skin breakdown. The patient denies having any chest pain or shortness of breath. Occasional cough. No abdominal pain and no diarrhea. REVIEW OF SYSTEMS: Positive for fever with rigors and chills. EYES: No complaint. ENT: No complaint. RESPIRATORY: As per HPI. CARDIOVASCULAR: No complaint. GENITOURINARY: No complaint. GASTROINTESTINAL: No complaint. MUSCULOSKELETAL: No complaint. INTEGUMENTARY: As per HPI. PSYCHOLOGICAL: No complaint. ENDOCRINE: No complaint. NEUROLOGIC: No complaint. PAST MEDICAL HISTORY: COPD, diabetes mellitus, hypertension, prostate disorder, CHF, emphysema, stage IV pancreatic cancer. PAST SURGICAL HISTORY: Cholecystectomy, coronary bypass grafting, PTCA with stent. SOCIAL HISTORY: Patient current everyday smoker. No drinking or drug use. FAMILY HISTORY: Father history of AL. Mother history of coronary artery disease. Brother history of leukemia. ALLERGIES: TERAZOSIN, SAXAGLIPTIN, FLUTICASONE. MEDICATIONS: Medications include the patient is currently on [place], Maalox, DuoNeb, Zenpep, Lipitor, Cepacol lozenges, vitamin D3, Questran, Lotrimin, Lanoxin, iron sulfate, Zarxio, Lasix, melatonin, nicotine patch, MiraLAX, Compazine, Carafate, vancomycin pharmacy to dose. PHYSICAL EXAMINATION: On examination, blood pressure 133/57 with a pulse of 88, temperature 98.3. He is 94% on 3 L nasal cannula. General description is an elderly male up in the chair in no distress. No tachypnea or accessory muscle of respiration use. HEENT examination shows pallor. No scleral icterus. Oral mucous membrane is dry. No pharyngeal erythema or thrush. NECK: Trachea central. No thyromegaly. LUNGS: Unlabored breathing with decreased breath sounds at the bases. No wheeze or crackle. HEART: S1, S2. Regular rate and rhythm. ABDOMEN: Soft, no tenderness. No guarding or rigidity. EXTREMITIES: With significant swelling to the left leg as well as the right leg. However, the left is more so than the right and is warm to touch currently with no blister formation. NEUROLOGICALLY: The patient is awake, alert, oriented x3. Mood and affect normal. LABS: Hemoglobin is 7 with white count of 3.6. BUN of 13, creatinine 0.79. Blood culture has been negative. Lower extremity Doppler was negative for DVT. CT angiogram was negative for PE. DIAGNOSTIC IMPRESSION AND PLAN: Patient with bilateral lower extremity cellulitis, left greater than right in a patient who did have diffuse swelling, redness likely representing a streptococcal disease, which seemed to have not responded very well to the initial Levaquin followed by the vancomycin therapy. PLAN: 1. Discontinue the vancomycin. 2. Will start the patient on cefazolin 2 grams q.6 hours. 3. Loy the area of redness. 4. Thierry wrap from just above the toe to below the knee. 5. We will follow up on clinical condition and culture to further adjust medication if needed. Thank you for this consultation. Will follow this patient along with you. MMODL / IJN: [id number] /
[2018-05-08 05:36] LABS: Anisocytosis Slight; Basophils % (A) 0 %; Eosinophils % (A) 1 %; HCT 22.5 % (39.0-53.0); Hypochromasia Marked; Lymphocytes # (A) 0.4 k/uL (1.0-4.8); Lymphocytes % (A) 8 %; MCH 23.1 pg (25.0-35.0); MCHC 30.9 g/dL (31.0-37.0); MCV 74.8 fL (80.0-100.0); Microcytosis Moderate; Monocytes # (A) 0.2 k/uL (0-1.0); Monocytes % (A) 4 %; Neutrophils # (A) 4.3 k/uL (1.3-7.7); Neutrophils % (A) 85 %; Platelet Count 172 k/uL (150-450); Poikilocytosis Slight; RDW 19.4 % (11.5-15.5)
[2018-05-08] MEDS: MORPHINE SULFATE ER 30 MG TABLET PO PRN ×3 (05:58→19:40)
[2018-05-08 06:05] LABS: Anion Gap 6 mmol/L; Blood Urea Nitrogen 16 mg/dL (9-20); Calcium 8.4 mg/dL (8.4-10.2); Carbon Dioxide 28 mmol/L (22-30); Chloride 102 mmol/L (98-107); Glucose 95 mg/dL (74-99); Potassium 3.8 mmol/L (3.5-5.1); Sodium 136 mmol/L (137-145)
[2018-05-08 06:08] LABS: HGB 6.9 gm/dL (13.0-17.5)
[2018-05-08 07:02] LABS: Glucose,Whole Blood 68 mg/dL (75-99)
[2018-05-08] MEDS: INSULIN ASPART 100 UNIT/ML 1 ML 10 ML VIAL SQ SCH ×4 (07:05→21:43)
[2018-05-08] MEDS: SUCRALFATE 1 GM TAB PO SCH ×4 (07:06→21:36)
[2018-05-08] MEDS: POLYETHYLENE GLYCOL 3350 17 GM POWD.PACK PO SCH (07:11)
[2018-05-08] MEDS: CHOLECALCIFEROL 400 UNIT TAB PO SCH (07:12)
[2018-05-08] MEDS: FERROUS SULFATE 325 MG TAB PO SCH (07:13)
[2018-05-08] MEDS: ONDANSETRON ODT 8 MG TAB.RAPDIS PO SCH ×2 (07:13→21:37)
[2018-05-08] MEDS: DIGOXIN 125 MCG TAB PO SCH (07:13)
[2018-05-08] MEDS: TAMSULOSIN 0.4 MG CAP.ER.24H PO SCH ×2 (07:13→21:37)
[2018-05-08] MEDS: LIPASE 5,000/PROTEASE 17,000/AMYLASE 24,000 PO SCH ×3 (07:13→17:30)
[2018-05-08] MEDS: CYANOCOBALAMIN 500 MCG TAB PO SCH (07:13)
[2018-05-08] MEDS: FINASTERIDE 5 MG TAB PO SCH (07:13)
[2018-05-08] MEDS: SENNOSIDES 8.6 MG TAB PO SCH ×2 (07:14→21:36)
[2018-05-08] MEDS: GABAPENTIN 400 MG CAP PO SCH ×3 (07:14→21:36)
[2018-05-08] MEDS: SIMETHICONE 80 MG CHEWABLE PO SCH ×2 (07:14→21:37)
[2018-05-08] MEDS: MAG HYDROX/AL HYDROX/SIMETH 30 ML, LIDOCAINE VISCOUS 30 ML, diphenhydrAMINE ELIXIR 75 M... PO SCH ×12 (07:15→21:46)
[2018-05-08] MEDS: NICOTINE 21MG/24HR PATCH TRANSDERM SCH (07:15)
[2018-05-08] MEDS: CLOTRIMAZOLE 1% CREAM 15 GM TUBE TOPICAL SCH ×2 (07:16→21:36)
[2018-05-08] MEDS: CHOLESTYRAMINE (WITH SUGAR) 4 GM PACKET PO SCH ×2 (07:16→17:31)
[2018-05-08 07:20] LABS: Glucose,Whole Blood 67 mg/dL (75-99)
[2018-05-08 07:35] LABS: Glucose,Whole Blood 81 mg/dL (75-99)
[2018-05-08 12:01] LABS: Glucose,Whole Blood 144 mg/dL (75-99)
--- NOTE | 2018-05-08 12:54 | P.PN ---
Subjective This is a pleasant 67-year-old male past medical history significant for coronary artery disease and status post coronary artery bypass grafting as well as coronary artery stenting, the details are unknown at this point, all of that was done through [facility] as well as [facility], beside that the patient does have diabetes, hypertension, dyslipidemia, chronic kidney disease. More importantly the patient also was diagnosed with stage IV pancreatic carcinoma in January 2018 and he did undergo chemotherapy throughout [facility] as well. He presented to the hospital with significant lower extremity edema and has been receiving IV lasix 40 mg TID. He is seen and examined sleeping comfortably in bed on CPAP. He is laying flat in no acute distress. Ongoing lower extremity edema with little to no improvement since yesterday. He has a negative fluid balance of 1380 ml in the previous 24 hours with 2Kg weight gain noted. Blood pressure 160/68 heart rate 106. He is continued on IV antibiotics and IV lasix currently. He denies chest pain, shortness of breath, palpitations or dizziness. Telemetry tracings indicated atrial tachycardia at times. Laboratory data reviewed, hgb 6.9, plt 172, sodium 136, potassium 3.8, creatinine 0.86. GENERAL: Well-appearing, well-nourished and in no acute distress. NECK: Supple without JVD or thyromegaly. LUNGS: Breath sounds clear to auscultation bilaterally. Respiration equal and unlabored. No wheezes, rales or rhonchi. Diminished bilaterally. HEART: Regular rate and rhythm with systolic ejection murmur at the base, no rubs or gallops. S1 and S2 heard. EXTREMITIES: Normal range of motion, 2+ bilateral lower extremity edema and redness up above the knee. No clubbing or cyanosis. Peripheral pulses intact. ASSESSMENT Acute on chronic diastolic heart failure with hyperdynamic LV function. Bilateral lower extremity edema Paroxysmal atrial tachycardia History of coronary artery disease status post angioplasty and bypass grafting Hypertension Dyslipidemia Diabetes mellitus Stage IV pancreatic cancer with metastasis COPD Carotid artery disease Chronic nicotine dependence PLAN Continue current medical regimen with lasix IV 40 mg TID. Lower extremity edema related to cellulitis as well as mild heart failure. We will continue to follow and make recommendations accordingly. Nurse Practitioner note has been reviewed, I agree with a documented findings and plan of care. Patient was seen and examined. Objective - Vital Signs Vital signs: Vital Signs Temp 98.1 F 05/08/18 10:28 Pulse 98 05/08/18 10:28 Resp 22 05/08/18 10:28 BP 108/52 05/08/18 10:28 Pulse Ox 96 05/08/18 10:28 Intake & Output 05/07/18 05/08/18 05/08/18 18:59 06:59 18:59 Intake Total 720 1200 1440 Output Total 2049 1250 375 Balance -1330 -50 1065 Weight 105.3 kg 108 kg Intake: Oral 720 1200 1440 Blood Product 0 Rc As-3 Unit 0 [id number] Output: Urine 2049 1250 375 Uretheral (Marx) 1400 600 375 Other: Voiding Method Indwelling Catheter Indwelling Catheter # Voids 1 # Bowel Movements 1 - Labs CBC & Chem 7: 05/08/18 05:22 05/08/18 05:22 Labs: Abnormal Lab Results - Last 24 Hours (Table) 05/05/18 05/07/18 05/07/18 Range/Units 17:04 09:30 17:25 RBC (4.30-5.90) m/uL Hgb (13.0-17.5) gm/dL Hct (39.0-53.0) % MCV (80.0-100.0) fL MCH (25.0-35.0) pg MCHC (31.0-37.0) g/dL RDW (11.5-15.5) % Lymphocytes # (1.0-4.8) k/uL Sodium (137-145) mmol/L POC Glucose (mg/dL) 235 H (75-99) mg/dL Hemoglobin A1c 7.9 H (4.0-6.0) % Crossmatch See Detail 05/07/18 05/08/18 05/08/18 Range/Units 20:01 02:38 05:22 RBC (4.30-5.90) m/uL Hgb (13.0-17.5) gm/dL Hct (39.0-53.0) % MCV (80.0-100.0) fL MCH (25.0-35.0) pg MCHC (31.0-37.0) g/dL RDW (11.5-15.5) % Lymphocytes # (1.0-4.8) k/uL Sodium 136 L (137-145) mmol/L POC Glucose (mg/dL) 126 H 104 H (75-99) mg/dL Hemoglobin A1c (4.0-6.0) % Crossmatch 05/08/18 05/08/18 05/08/18 Range/Units 05:22 07:02 07:19 RBC 3.00 L (4.30-5.90) m/uL Hgb 6.9 L* (13.0-17.5) gm/dL Hct 22.5 L (39.0-53.0) % MCV 74.8 L (80.0-100.0) fL MCH 23.1 L (25.0-35.0) pg MCHC 30.9 L (31.0-37.0) g/dL RDW 19.4 H (11.5-15.5) % Lymphocytes # 0.4 L (1.0-4.8) k/uL Sodium (137-145) mmol/L POC Glucose (mg/dL) 68 L 67 L (75-99) mg/dL Hemoglobin A1c (4.0-6.0) % Crossmatch 05/08/18 Range/Units 11:59 RBC (4.30-5.90) m/uL Hgb (13.0-17.5) gm/dL Hct (39.0-53.0) % MCV (80.0-100.0) fL MCH (25.0-35.0) pg MCHC (31.0-37.0) g/dL RDW (11.5-15.5) % Lymphocytes # (1.0-4.8) k/uL Sodium (137-145) mmol/L POC Glucose (mg/dL) 144 H (75-99) mg/dL Hemoglobin A1c (4.0-6.0) % Crossmatch Microbiology - Last 24 Hours (Table) 05/02/18 23:15 Blood Culture - Preliminary Blood No Growth after 120 hours
[2018-05-08] MEDS: NYSTATIN 100,000 UNIT/ML SUSP 500,000 UNIT/5 ML CUP PO SCH ×3 (13:52→21:47)
[2018-05-08 17:05] LABS: Glucose,Whole Blood 124 mg/dL (75-99)
[2018-05-08] MEDS: BENZOCAINE/MENTHOL LOZENG 1 EACH LOZENGE MUCOUS MEM PRN (17:32)
--- NOTE | 2018-05-08 18:03 | P.PN ---
Subjective Progress Note Date: 05/08/18 The patient denies any subjective fever, chills, nausea or vomiting. He feels somewhat stronger. Appetite is mildly improved. He continues to have bilateral lower extremity swelling and redness. Objective - Vital Signs Vital signs: Vital Signs Temp 97.6 F 05/08/18 12:44 Pulse 100 05/08/18 16:16 Resp 22 05/08/18 16:00 BP 160/68 05/08/18 12:44 Pulse Ox 96 05/08/18 12:44 Intake & Output 05/07/18 05/08/18 05/08/18 18:59 06:59 18:59 Intake Total 720 1200 1750 Output Total 2049 1250 375 Balance -1330 -50 1375 Weight 105.3 kg 108 kg Intake: Oral 720 1200 1440 Blood Product 310 Rc As-3 Unit 310 [id number] Output: Urine 2049 1250 375 Uretheral (Marx) 1400 600 375 Other: Voiding Method Indwelling Catheter Indwelling Catheter Indwelling Catheter # Voids 1 3 # Bowel Movements 1 - Constitutional General appearance: Present: no acute distress - EENT Eyes: Present: EOMI ENT: Present: hearing grossly normal, normal oropharynx - Respiratory Respiratory: bilateral: CTA - Cardiovascular Rhythm: regular Heart sounds: normal: S1, S2 - Gastrointestinal General gastrointestinal: Present: normal bowel sounds, soft - Integumentary Integumentary: Present: cellulitis (Bilateral lower extremity) - Neurologic Neurologic: Present: CNII-XII intact - Musculoskeletal Musculoskeletal: Present: generalized weakness, strength equal bilaterally - Psychiatric Psychiatric: Present: A&O x's 3, appropriate affect - Labs CBC & Chem 7: 05/08/18 05:22 05/08/18 05:22 Labs: Abnormal Lab Results - Last 24 Hours (Table) 05/05/18 05/07/18 05/07/18 Range/Units 17:04 09:30 20:01 RBC (4.30-5.90) m/uL Hgb (13.0-17.5) gm/dL Hct (39.0-53.0) % MCV (80.0-100.0) fL MCH (25.0-35.0) pg MCHC (31.0-37.0) g/dL RDW (11.5-15.5) % Lymphocytes # (1.0-4.8) k/uL Sodium (137-145) mmol/L POC Glucose (mg/dL) 126 H (75-99) mg/dL Hemoglobin A1c 7.9 H (4.0-6.0) % Crossmatch See Detail 05/08/18 05/08/18 05/08/18 Range/Units 02:38 05:22 05:22 RBC 3.00 L (4.30-5.90) m/uL Hgb 6.9 L* (13.0-17.5) gm/dL Hct 22.5 L (39.0-53.0) % MCV 74.8 L (80.0-100.0) fL MCH 23.1 L (25.0-35.0) pg MCHC 30.9 L (31.0-37.0) g/dL RDW 19.4 H (11.5-15.5) % Lymphocytes # 0.4 L (1.0-4.8) k/uL Sodium 136 L (137-145) mmol/L POC Glucose (mg/dL) 104 H (75-99) mg/dL Hemoglobin A1c (4.0-6.0) % Crossmatch 05/08/18 05/08/18 05/08/18 Range/Units 07:02 07:19 11:59 RBC (4.30-5.90) m/uL Hgb (13.0-17.5) gm/dL Hct (39.0-53.0) % MCV (80.0-100.0) fL MCH (25.0-35.0) pg MCHC (31.0-37.0) g/dL RDW (11.5-15.5) % Lymphocytes # (1.0-4.8) k/uL Sodium (137-145) mmol/L POC Glucose (mg/dL) 68 L 67 L 144 H (75-99) mg/dL Hemoglobin A1c (4.0-6.0) % Crossmatch 05/08/18 Range/Units 17:03 RBC (4.30-5.90) m/uL Hgb (13.0-17.5) gm/dL Hct (39.0-53.0) % MCV (80.0-100.0) fL MCH (25.0-35.0) pg MCHC (31.0-37.0) g/dL RDW (11.5-15.5) % Lymphocytes # (1.0-4.8) k/uL Sodium (137-145) mmol/L POC Glucose (mg/dL) 124 H (75-99) mg/dL Hemoglobin A1c (4.0-6.0) % Crossmatch Microbiology - Last 24 Hours (Table) 05/02/18 23:15 Blood Culture - Preliminary Blood No Growth after 120 hours Assessment and Plan (1) Fever Narrative/Plan: A few pattern has improved. The patient had developed neutropenia because of his recent chemotherapy. However white count has recovered with the use of G- CSF. This will be discontinued. Current Visit: Yes Status: Acute Code(s): R50.9 - FEVER, UNSPECIFIED SNOMED Code(s): 083925175 (2) Cellulitis of lower extremity Narrative/Plan: Patient antibiotic as a modified by ID. As noted, white count has recovered and GCSF has been discontinued. Doppler of right lower extremity was negative. However as he now has swelling of both legs, Doppler of the left lower exudate will also be ordered Current Visit: Yes Status: Acute Code(s): L03.119 - CELLULITIS OF UNSPECIFIED PART OF LIMB SNOMED Code(s): 599497340 (3) Bicytopenia Narrative/Plan: Due to chemotherapy. With recovery of WBC, G-CFS and been discontinued. Hemoglobin is less than 7 today, and 1 unit of PRBC was ordered Current Visit: Yes Status: Acute Code(s): D75.89 - OTHER SPECIFIED DISEASES OF BLOOD AND BLOOD-FORMING ORGANS SNOMED Code(s): 691152900 (4) Pancreatic cancer Narrative/Plan: As noted in previous consults. The patient will see Dr. Mcmahon in the outpatient setting, to transfer his chemotherapy here. He'll start treatment after satisfactory resolution of his ongoing issues Current Visit: Yes Status: Acute Code(s): C25.9 - MALIGNANT NEOPLASM OF PANCREAS, UNSPECIFIED SNOMED Code(s): 834681607
[2018-05-08 20:24] LABS: Glucose,Whole Blood 156 mg/dL (75-99)
[2018-05-08] MEDS: ATORVASTATIN 80 MG TAB PO SCH (21:36)
[2018-05-08] MEDS: INSULIN DETEMIR 100 UNIT/ML 10 ML VIAL SQ SCH (21:43)
--- NOTE | 2018-05-08 22:46 | US ---
EXAMINATION TYPE: US venous doppler duplex LE LT DATE OF EXAM: 05/08/2018 10:32 PM COMPARISON: NONE CLINICAL HISTORY: Progressive swelling and redness left lower extrem. Swelling and edema. SIDE PERFORMED: TECHNIQUE: The lower extremity deep venous system is examined utilizing real time linear array sonog barney with graded compression, doppler sonography and color-flow sonography. VESSELS IMAGED: External Iliac Vein (EIV) Common Femoral Vein Deep Femoral Vein Greater Saphenous Vein * Femoral Vein Popliteal Vein Small Saphenous Vein * Proximal Calf Veins (* superficial vessels Left Leg: Negative for DVT No evidence of DVT left leg. IMPRESSION: Normal left leg duplex venous sonogram.
--- NOTE | 2018-05-08 23:41 | PN ---
PROGRESS NOTE DATE OF SERVICE: 05/08/2018. REASON FOR FOLLOWUP: Bilateral lower extremity cellulitis. INTERVAL HISTORY: The patient is afebrile. He was noted to be slightly sleepy, lethargic, and on a BiPAP at the time of my evaluation. Abdomen soft. No significant changes in his clinical condition with no nausea, vomiting, or any diarrhea. EXAMINATION: Blood pressure is 117/53 with a pulse of 90, temperature 97.6, he is 97% on 3 L nasal cannula. GENERAL DESCRIPTION: An elderly male, lying in bed in no distress. RESPIRATORY: Unlabored breathing. Clear to auscultation anteriorly. HEART: S1, S2. Regular rate and rhythm. ABDOMEN: Soft. EXTREMITIES: Bilateral leg significant swelling and redness persists. LABS: Hemoglobin 6.8 with white count 5.0, BUN of 16, creatinine 0.86. DIAGNOSTIC IMPRESSION AND PLAN: Patient with bilateral lower extremity cellulitis. The patient did have diffuse swelling and the RN has been advised to apply aseptic to keep some of the swelling down. Keep the patient on cefazolin at this point and re-evaluate the patient tomorrow. Continue supportive care. MMODL / IJN: [id number] /
[2018-05-09] MEDS: FUROSEMIDE 10 MG/ML 4 ML VIAL IV SCH ×3 (00:18→16:53)
[2018-05-09] MEDS: ceFAZolin IN SWFI 2 GM/20 ML SYRINGE IVP SCH ×4 (00:18→18:26)
--- NOTE | 2018-05-09 01:20 | P.PN ---
Subjective Progress Note Date: 05/07/18 Progress note being dictated for Dr. Palacios. Interval history:Mr. Cameron is a pleasant 67 year old male patient who presented for increased dyspnea and shortness of breath. He apparently was recently diagnosed with stage IV pancreatic carcinoma back in January of this year and been undergoing chemotherapy with Abraxane and Gemzar through the [facility]. He is status post two treatments of gemzar and abraxane. Mr. Cameron has muliple co-morbidies aside this new diagnosis of carcinoma including COPD, Diabetes Mellitus, Hypertension, Prostate Disorder, Vascular Disorder, CHF, edema to lower extremities, renal disease, urinary hesistancy requiring straight cath, CABG with stents on plavix, and Atrial fibrillation on xarelto. 05/04/2018 Patient is seen and evaluated in the room for follow-up; patient reports improvement in rigors and chills since admission; patient remains on Levaquin 750 mg daily; patient continues to complain of generalized edema especially both lower extremities; bilateral lower extremity venous Doppler is negative; patient relates that he had CABG with stents and has been on Plavix and Xarelto for atrial fibrillation; patient also relates that he was going to be initiated on IV Lasix infusion since he had no response to oral Lasix; patient will be started on IV Lasix infusion at 10 mg per hour 05/05/2018 Patient is seen at bedside for follow-up; denies any further fever and chills; patient remains afebrile with a temperature of 97.8 pulse of 96 and blood pressure 128/63; he is saturating 100% on room air Labs are reviewed showing a white blood count of 2.5 with hemoglobin 7.1 and platelet count of 174; chemical profile is stable. Patient continues to complain of generalized his edema especially both lower extremities; patient is resumed on Lasix 40 mg IV every 12 hours; we will consult cardiology for possible IV Lasix infusion Patient remains on Levaquin 750 mg IV daily for neutropenic fever 05/06/2018 Patient is seen in follow-up; he is sitting at bedside with family also present in the room; complain of marked redness and pain of both lower extremities Vital signs are reviewed which showed a normal temperature of 98.6 pulse rate of 111 and blood pressure 144/61; patient continues to saturate well 96% on room air Lab review shows a drop in white blood count of 1.4 with an absolute neutrophil count of 1.1; chemical profile shows uptrending liver enzymes with AST/ALT of 76 /92 On examination patient's both lower extremities are markedly erythematous all the up to the and indurated and warm to touch Patient is currently on IV Levaquin for neutropenic fever; we will add IV vancomycin with pharmacy dosing service; monitor vital signs and CBC closely; we will request ID to see patient for further recommendations We will repeat liver enzymes; further recommendations after blood work is available 05/07/2018 complains of raw sore throat. Maintained initially on Levaquin, then vancomycin. Bilateral lower extremity cellulitis unchanged. Complains of aching sensation in bilateral lower legs, especially the left leg Afebrile. Diuresing well on Lasix IV push with 24-hour I&O reflecting a negative fluid balance. Denies chest pain, palpitations or increasing shortness of breath. Review of systems: CONSTITUTIONAL: Generalized fatigue. HEENT: No recent visual problems or hearing problems. Positive sore throat. CARDIOVASCULAR: No chest pain, orthopnea, PND, no palpitations, no syncope. PULMONARY: No shortness of breath, no cough, no hemoptysis. GASTROINTESTINAL: No diarrhea, no nausea, no vomiting, no abdominal pain. Normoactive bowel sounds. NEUROLOGICAL: No headaches, generalized weakness, no numbness. HEMATOLOGICAL: Denies any bleeding or petechiae. GENITOURINARY: Denies any burning micturition, frequency, or urgency. MUSCULOSKELETAL/RHEUMATOLOGICAL: Denies any joint pain, bilateral lower extremity swelling, no muscle pain. ENDOCRINE: Denies any polyuria or polydipsia. PSYCHIATRIC: No anxiety, no depression The rest of the 14 point review of systems is negative Active Medications Hydrocodone Bitart/Acetaminophen ([place] 10) 1 each PO Q4HR PRN PRN Reason: Pain Last Admin: 05/07/18 15:31 Dose: 1 each Albuterol/Ipratropium (Duoneb 0.5 Mg-3 Mg/3 Ml Soln) 3 ml INHALATION RT-Q4H [facility] Last Admin: 05/07/18 16:35 Dose: 3 ml Lipase/Protease/Amylase (Zenpep Dr 5,000 Unit Capsule) 10 each PO PC-TID [facility] Last Admin: 05/07/18 17:55 Dose: 10 each Atorvastatin Calcium (Lipitor) 80 mg PO HS [facility] Last Admin: 05/06/18 21:26 Dose: 80 mg Benzocaine/Menthol (Cepacol Lozenge) 1 each MUCOUS MEM Q4HR PRN PRN Reason: Cough Last Admin: 05/06/18 21:40 Dose: 1 each Cefazolin Sodium (Kefzol) 2 gm IVP Q6HR [facility] Last Admin: 05/07/18 17:57 Dose: 2 gm Cholecalciferol (Vitamin D3) 800 unit PO DAILY [facility] Last Admin: 05/07/18 08:30 Dose: 800 unit Cholestyramine Resin (Questran) 4 gm PO BID@1000,1800 [facility] Last Admin: 05/07/18 17:56 Dose: 4 gm Clotrimazole (Lotrimin Cream) 1 applic TOPICAL BID [facility] Last Admin: 05/07/18 08:33 Dose: 1 applic Al Hydroxide/Mg Hydroxide 30 ml/ Lidocaine HCl 30 ml/Diphenhydramine HCl 75 mg/ Nystatin 3,000,000 unit 0 ml PO TID [facility] Last Admin: 05/07/18 16:30 Dose: 5 ml Cyanocobalamin (Vitamin B-12) 1,000 mcg PO DAILY [facility] Last Admin: 05/07/18 08:30 Dose: 1,000 mcg Digoxin (Lanoxin) 125 mcg PO DAILY [facility] Last Admin: 05/07/18 08:30 Dose: 125 mcg Ferrous Sulfate (Feosol) 325 mg PO DAILY [facility] Last Admin: 05/07/18 08:30 Dose: 325 mg Filgrastim (Zarxio) 480 mcg SQ DAILY@1800 [facility] Last Admin: 05/07/18 17:58 Dose: 480 mcg Finasteride (Proscar) 5 mg PO DAILY [facility] Last Admin: 05/07/18 08:30 Dose: 5 mg Furosemide (Lasix) 40 mg IV Q8HR [facility] Last Admin: 05/07/18 16:29 Dose: 40 mg Gabapentin (Neurontin) 400 mg PO TID [facility] Last Admin: 05/07/18 16:29 Dose: 400 mg Insulin Aspart (Novolog) 0 unit SQ [facility]; Protocol Last Admin: 05/07/18 17:56 Dose: 5 unit Insulin Detemir (Levemir) 80 unit SQ HS [facility] Last Admin: 05/06/18 21:35 Dose: 30 unit Melatonin (Melatonin) 3 mg PO HS PRN PRN Reason: Insomnia Morphine Sulfate (Ms Contin) 30 mg PO Q6HR PRN PRN Reason: Pain Last Admin: 05/07/18 13:47 Dose: 30 mg Nicotine (Habitrol 21mg/24hr Patch) 1 patch TRANSDERM DAILY [facility] Last Admin: 05/07/18 08:31 Dose: 1 patch Ondansetron HCl (Zofran Odt) 8 mg PO Q12HR [facility] Last Admin: 05/07/18 08:30 Dose: 8 mg Polyethylene Glycol (Miralax) 17 gm PO DAILY [facility] Last Admin: 05/07/18 07:18 Dose: Not Given Prochlorperazine Maleate (Compazine) 10 mg PO Q6H PRN PRN Reason: Nausea Senna (Senokot) 17.2 mg PO BID [facility] Last Admin: 05/07/18 07:18 Dose: Not Given Simethicone (Mylicon Chew) 240 mg PO BID [facility] Last Admin: 05/07/18 08:31 Dose: 240 mg Sucralfate (Carafate) 1 gm PO ACHS [facility] Last Admin: 05/07/18 17:55 Dose: 1 gm Tamsulosin HCl (Flomax) 0.4 mg PO BID [facility] Last Admin: 05/07/18 08:30 Dose: 0.4 mg Objective - Vital Signs Vital signs: Vital Signs Temp 98.0 F 05/07/18 11:50 Pulse 88 05/07/18 16:45 Resp 22 05/07/18 16:00 BP 130/59 05/07/18 11:50 Pulse Ox 96 05/07/18 11:50 Intake & Output 05/07/18 05/07/18 05/08/18 06:59 18:59 06:59 Intake Total 840 720 Output Total 1550 0 Balance -710 -1330 Weight 106 kg 105.3 kg Intake: Intake, IV Titration 500 Amount Vancomycin 2,000 mg In 500 Sodium Chloride 0.9% 500 ml 500 ml @ 167 mls/hr IVPB ONCE ONE Rx#: [id number] Oral 340 720 Output: Urine 1550 2050 Uretheral (Marx) 800 1400 Other: Voiding Method Indwelling Catheter Indwelling Catheter - Exam Head exam: Normocephalic atraumatic Eye exam: non-icteric sclera, normal appearance, PERRL ENT exam: normal oropharynx, mucosa dry, mildly inflamed, no thrush Neck exam: Supple, no lymphadenopathy, Respiratory exam: Blateral decreased breath sounds at bases Cardiovascular Exam: Regular S1 and S2, systolic murmurs,no rubs or gallops GI/Abdominal exam: Obese, soft, nontender, positive bowel sounds Extremities exam: Significant bilateral lower extremity cellulitis with edema, left greater right, redness. No blistering, no open wounds Neurological exam: Non focal , alert and oriented 3 Psychiatric exam: normal affect, non focal - Labs CBC & Chem 7: 05/08/18 05:22 05/08/18 05:22 Labs: Abnormal Lab Results - Last 24 Hours (Table) 05/06/18 05/07/18 05/07/18 Range/Units 20:37 04:02 07:14 WBC (3.8-10.6) k/uL RBC (4.30-5.90) m/uL Hgb (13.0-17.5) gm/dL Hct (39.0-53.0) % MCV (80.0-100.0) fL MCH (25.0-35.0) pg MCHC (31.0-37.0) g/dL RDW (11.5-15.5) % Lymphocytes # (Manual) (1.0-4.8) k/uL Sodium (137-145) mmol/L Glucose (74-99) mg/dL POC Glucose (mg/dL) 186 H 100 H 141 H (75-99) mg/dL Calcium (8.4-10.2) mg/dL ALT (21-72) U/L Alkaline Phosphatase (38-126) U/L Total Protein (6.3-8.2) g/dL Albumin (3.5-5.0) g/dL 05/07/18 05/07/18 05/07/18 Range/Units 09:30 09:30 11:45 WBC 3.6 L (3.8-10.6) k/uL RBC 3.12 L (4.30-5.90) m/uL Hgb 7.0 L (13.0-17.5) gm/dL Hct 23.0 L (39.0-53.0) % MCV 73.9 L (80.0-100.0) fL MCH 22.4 L (25.0-35.0) pg MCHC 30.3 L (31.0-37.0) g/dL RDW 19.4 H (11.5-15.5) % Lymphocytes # (Manual) 0.14 L (1.0-4.8) k/uL Sodium 134 L (137-145) mmol/L Glucose 136 H (74-99) mg/dL POC Glucose (mg/dL) 166 H (75-99) mg/dL Calcium 7.9 L (8.4-10.2) mg/dL ALT 102 H (21-72) U/L Alkaline Phosphatase 172 H (38-126) U/L Total Protein 4.9 L (6.3-8.2) g/dL Albumin 2.2 L (3.5-5.0) g/dL 05/07/18 05/07/18 Range/Units 17:25 20:01 WBC (3.8-10.6) k/uL RBC (4.30-5.90) m/uL Hgb (13.0-17.5) gm/dL Hct (39.0-53.0) % MCV (80.0-100.0) fL MCH (25.0-35.0) pg MCHC (31.0-37.0) g/dL RDW (11.5-15.5) % Lymphocytes # (Manual) (1.0-4.8) k/uL Sodium (137-145) mmol/L Glucose (74-99) mg/dL POC Glucose (mg/dL) 235 H 126 H (75-99) mg/dL Calcium (8.4-10.2) mg/dL ALT (21-72) U/L Alkaline Phosphatase (38-126) U/L Total Protein (6.3-8.2) g/dL Albumin (3.5-5.0) g/dL Microbiology - Last 24 Hours (Table) 05/02/18 23:15 Blood Culture - Preliminary Blood No Growth after 96 hours Assessment and Plan Assessment: - Metastatic Pancreatic Cancer - Treatment through [facility] - Status Post 2 weekly infusions of Gemcitabine and Abraxane - Currently on hold and will follow-up to resume treatment at [facility] with our medical oncology office - Acute on chronic CHF exacerbation, diastolic dysfunction - Leukopenia - Secondary to chemotherapy - - Normocytic Anemia: Secondary to chemotherapy - -. Bilateral lower extremity cellulitis,- Dopplers negative ,-possible streptococcal disease -slow to improve - - Urinary Retention: - - Hyperlipidemia; - Diabetes mellitus type 1 - Plan: Continue current medication regime , Proscar, Flomax, monitoring and symptomatic treatment. Infectious disease consulted regarding slow to improve cellulitis. Cools solution with additional nystatin swish and swallow added to med regime. Maintain strict I and O,/CHF pathway. Continue diuresing with Lasix IV push. Close monitoring of renal function, hemoglobin and electrolytes with repeat labs ordered for a.m. Hemoglobin currently 7. The impression and plan of care has been dictated as directed. : I performed a history and examination of this patient, discussed the same with the dictator. I agree with the dictator's note ,documented as a scribe. Any additional findings or plans will be noted.
--- NOTE | 2018-05-09 01:31 | P.PN ---
Subjective Progress Note Date: 05/07/18 Progress note being dictated for Dr. Palacios. Interval history:Mr. Cameron is a pleasant 67 year old male patient who presented for increased dyspnea and shortness of breath. He apparently was recently diagnosed with stage IV pancreatic carcinoma back in January of this year and been undergoing chemotherapy with Abraxane and Gemzar through the [facility]. He is status post two treatments of gemzar and abraxane. Mr. Cameron has muliple co-morbidies aside this new diagnosis of carcinoma including COPD, Diabetes Mellitus, Hypertension, Prostate Disorder, Vascular Disorder, CHF, edema to lower extremities, renal disease, urinary hesistancy requiring straight cath, CABG with stents on plavix, and Atrial fibrillation on xarelto. 05/04/2018 Patient is seen and evaluated in the room for follow-up; patient reports improvement in rigors and chills since admission; patient remains on Levaquin 750 mg daily; patient continues to complain of generalized edema especially both lower extremities; bilateral lower extremity venous Doppler is negative; patient relates that he had CABG with stents and has been on Plavix and Xarelto for atrial fibrillation; patient also relates that he was going to be initiated on IV Lasix infusion since he had no response to oral Lasix; patient will be started on IV Lasix infusion at 10 mg per hour 05/05/2018 Patient is seen at bedside for follow-up; denies any further fever and chills; patient remains afebrile with a temperature of 97.8 pulse of 96 and blood pressure 128/63; he is saturating 100% on room air Labs are reviewed showing a white blood count of 2.5 with hemoglobin 7.1 and platelet count of 174; chemical profile is stable. Patient continues to complain of generalized his edema especially both lower extremities; patient is resumed on Lasix 40 mg IV every 12 hours; we will consult cardiology for possible IV Lasix infusion Patient remains on Levaquin 750 mg IV daily for neutropenic fever 05/06/2018 Patient is seen in follow-up; he is sitting at bedside with family also present in the room; complain of marked redness and pain of both lower extremities Vital signs are reviewed which showed a normal temperature of 98.6 pulse rate of 111 and blood pressure 144/61; patient continues to saturate well 96% on room air Lab review shows a drop in white blood count of 1.4 with an absolute neutrophil count of 1.1; chemical profile shows uptrending liver enzymes with AST/ALT of 76 /92 On examination patient's both lower extremities are markedly erythematous all the up to the and indurated and warm to touch Patient is currently on IV Levaquin for neutropenic fever; we will add IV vancomycin with pharmacy dosing service; monitor vital signs and CBC closely; we will request ID to see patient for further recommendations We will repeat liver enzymes; further recommendations after blood work is available 05/07/2018 complains of raw sore throat. Maintained initially on Levaquin, then vancomycin. Bilateral lower extremity cellulitis unchanged. Complains of aching sensation in bilateral lower legs, especially the left leg Afebrile. Diuresing well on Lasix IV push with 24-hour I&O reflecting a negative fluid balance. Denies chest pain, palpitations or increasing shortness of breath. 05/08/2018 sore throat slowly improving, diet intake improving. Antibiotics adjusted as per infectious disease, now on cefazolin. Hemoglobin 6.9, one unit of packed RBCs ordered for transfusion. Review of systems: CONSTITUTIONAL: Generalized fatigue. HEENT: No recent visual problems or hearing problems. Positive sore throat. CARDIOVASCULAR: No chest pain, orthopnea, PND, no palpitations, no syncope. PULMONARY: No shortness of breath, no cough, no hemoptysis. GASTROINTESTINAL: No diarrhea, no nausea, no vomiting, no abdominal pain. Normoactive bowel sounds. NEUROLOGICAL: No headaches, generalized weakness, no numbness. HEMATOLOGICAL: Denies any bleeding or petechiae. GENITOURINARY: Denies any burning micturition, frequency, or urgency. MUSCULOSKELETAL/RHEUMATOLOGICAL: Denies any joint pain, bilateral lower extremity swelling, no muscle pain. ENDOCRINE: Denies any polyuria or polydipsia. PSYCHIATRIC: No anxiety, no depression The rest of the 14 point review of systems is negative Active Medications Hydrocodone Bitart/Acetaminophen ([place] 10) 1 each PO Q4HR PRN PRN Reason: Pain Last Admin: 05/07/18 15:31 Dose: 1 each Albuterol/Ipratropium (Duoneb 0.5 Mg-3 Mg/3 Ml Soln) 3 ml INHALATION RT-Q4H [facility] Last Admin: 05/07/18 16:35 Dose: 3 ml Lipase/Protease/Amylase (Zenpep Dr 5,000 Unit Capsule) 10 each PO PC-TID [facility] Last Admin: 05/07/18 17:55 Dose: 10 each Atorvastatin Calcium (Lipitor) 80 mg PO HS [facility] Last Admin: 05/06/18 21:26 Dose: 80 mg Benzocaine/Menthol (Cepacol Lozenge) 1 each MUCOUS MEM Q4HR PRN PRN Reason: Cough Last Admin: 05/06/18 21:40 Dose: 1 each Cefazolin Sodium (Kefzol) 2 gm IVP Q6HR [facility] Last Admin: 05/07/18 17:57 Dose: 2 gm Cholecalciferol (Vitamin D3) 800 unit PO DAILY [facility] Last Admin: 05/07/18 08:30 Dose: 800 unit Cholestyramine Resin (Questran) 4 gm PO BID@1000,1800 [facility] Last Admin: 05/07/18 17:56 Dose: 4 gm Clotrimazole (Lotrimin Cream) 1 applic TOPICAL BID [facility] Last Admin: 05/07/18 08:33 Dose: 1 applic Al Hydroxide/Mg Hydroxide 30 ml/ Lidocaine HCl 30 ml/Diphenhydramine HCl 75 mg/ Nystatin 3,000,000 unit 0 ml PO TID [facility] Last Admin: 05/07/18 16:30 Dose: 5 ml Cyanocobalamin (Vitamin B-12) 1,000 mcg PO DAILY [facility] Last Admin: 05/07/18 08:30 Dose: 1,000 mcg Digoxin (Lanoxin) 125 mcg PO DAILY [facility] Last Admin: 05/07/18 08:30 Dose: 125 mcg Ferrous Sulfate (Feosol) 325 mg PO DAILY [facility] Last Admin: 05/07/18 08:30 Dose: 325 mg Filgrastim (Zarxio) 480 mcg SQ DAILY@1800 [facility] Last Admin: 05/07/18 17:58 Dose: 480 mcg Finasteride (Proscar) 5 mg PO DAILY [facility] Last Admin: 05/07/18 08:30 Dose: 5 mg Furosemide (Lasix) 40 mg IV Q8HR [facility] Last Admin: 05/07/18 16:29 Dose: 40 mg Gabapentin (Neurontin) 400 mg PO TID [facility] Last Admin: 05/07/18 16:29 Dose: 400 mg Insulin Aspart (Novolog) [address] [facility]; Protocol Last Admin: 05/07/18 17:56 Dose: 5 unit Insulin Detemir (Levemir) 80 unit SQ HS [facility] Last Admin: 05/06/18 21:35 Dose: 30 unit Melatonin (Melatonin) 3 mg PO HS PRN PRN Reason: Insomnia Morphine Sulfate (Ms Contin) 30 mg PO Q6HR PRN PRN Reason: Pain Last Admin: 05/07/18 13:47 Dose: 30 mg Nicotine (Habitrol 21mg/24hr Patch) 1 patch TRANSDERM DAILY [facility] Last Admin: 05/07/18 08:31 Dose: 1 patch Ondansetron HCl (Zofran Odt) 8 mg PO Q12HR [facility] Last Admin: 05/07/18 08:30 Dose: 8 mg Polyethylene Glycol (Miralax) 17 gm PO DAILY [facility] Last Admin: 05/07/18 07:18 Dose: Not Given Prochlorperazine Maleate (Compazine) 10 mg PO Q6H PRN PRN Reason: Nausea Senna (Senokot) 17.2 mg PO BID [facility] Last Admin: 05/07/18 07:18 Dose: Not Given Simethicone (Mylicon Chew) 240 mg PO BID [facility] Last Admin: 05/07/18 08:31 Dose: 240 mg Sucralfate (Carafate) 1 gm PO ACHS [facility] Last Admin: 05/07/18 17:55 Dose: 1 gm Tamsulosin HCl (Flomax) 0.4 mg PO BID [facility] Last Admin: 05/07/18 08:30 Dose: 0.4 mg Objective - Vital Signs Vital signs: Vital Signs Temp 97.6 F 05/08/18 21:00 Pulse 100 05/08/18 21:33 Resp 16 05/08/18 21:00 BP 117/53 05/08/18 21:00 Pulse Ox 97 05/08/18 21:00 Intake & Output 05/08/18 05/08/18 05/09/18 06:59 18:59 06:59 Intake Total 1200 2230 240 Output Total 1250 575 Balance -50 1655 240 Weight 108 kg Intake: Oral 1200 1920 240 Blood Product 310 Rc As-3 Unit 310 [id number] Output: Urine 1250 575 Uretheral (Marx) 600 575 Other: Voiding Method Indwelling Catheter Indwelling Catheter # Voids 1 3 # Bowel Movements 1 - Exam Head exam: Normocephalic atraumatic Eye exam: non-icteric sclera, normal appearance, PERRL ENT exam: normal oropharynx, mucosa dry, mildly inflamed, no thrush Neck exam: Supple, no lymphadenopathy, Respiratory exam: Blateral decreased breath sounds at bases Cardiovascular Exam: Regular S1 and S2, systolic murmurs,no rubs or gallops GI/Abdominal exam: Obese, soft, nontender, positive bowel sounds Extremities exam: Significant bilateral lower extremity cellulitis with unchanged edema, left greater right, redness. No blistering, no open wounds Neurological exam: Non focal , alert and oriented 3 Psychiatric exam: normal affect, non focal - Labs CBC & Chem 7: 05/08/18 05:22 05/08/18 05:22 Labs: Abnormal Lab Results - Last 24 Hours (Table) 05/05/18 05/08/18 05/08/18 Range/Units 17:04 02:38 05:22 RBC (4.30-5.90) m/uL Hgb (13.0-17.5) gm/dL Hct (39.0-53.0) % MCV (80.0-100.0) fL MCH (25.0-35.0) pg MCHC (31.0-37.0) g/dL RDW (11.5-15.5) % Lymphocytes # (1.0-4.8) k/uL Sodium 136 L (137-145) mmol/L POC Glucose (mg/dL) 104 H (75-99) mg/dL Crossmatch See Detail 05/08/18 05/08/18 05/08/18 Range/Units 05:22 07:02 07:19 RBC 3.00 L (4.30-5.90) m/uL Hgb 6.9 L* (13.0-17.5) gm/dL Hct 22.5 L (39.0-53.0) % MCV 74.8 L (80.0-100.0) fL MCH 23.1 L (25.0-35.0) pg MCHC 30.9 L (31.0-37.0) g/dL RDW 19.4 H (11.5-15.5) % Lymphocytes # 0.4 L (1.0-4.8) k/uL Sodium (137-145) mmol/L POC Glucose (mg/dL) 68 L 67 L (75-99) mg/dL Crossmatch 05/08/18 05/08/18 05/08/18 Range/Units 11:59 17:03 20:23 RBC (4.30-5.90) m/uL Hgb (13.0-17.5) gm/dL Hct (39.0-53.0) % MCV (80.0-100.0) fL MCH (25.0-35.0) pg MCHC (31.0-37.0) g/dL RDW (11.5-15.5) % Lymphocytes # (1.0-4.8) k/uL Sodium (137-145) mmol/L POC Glucose (mg/dL) 144 H 124 H 156 H (75-99) mg/dL Crossmatch Microbiology - Last 24 Hours (Table) 05/02/18 23:15 Blood Culture - Preliminary Blood No Growth after 120 hours Assessment and Plan Assessment: - Metastatic Pancreatic Cancer - Treatment through [facility] - Status Post 2 weekly infusions of Gemcitabine and Abraxane - Currently on hold and will follow-up to resume treatment at [facility] with our medical oncology office -Neutropenic fever, WBC improved post G-CSF - Acute on chronic CHF exacerbation, diastolic dysfunction - Bicytopenia - Secondary to chemotherapy - - Normocytic Anemia: Secondary to chemotherapy - -. Bilateral lower extremity cellulitis,- Dopplers negative ,-possible streptococcal disease -slow to improve - - Urinary Retention: - - Hyperlipidemia; - Diabetes mellitus type 1 - Plan: Continue current medication regime , Proscar, Flomax, monitoring and symptomatic treatment. Antibiotics/wound care as per Infectious disease. Maintain Cools solution with additional nystatin swish and swallow. Continue diuresing with Lasix IV .Maintain strict I and O,/CHF pathway. Close monitoring of renal function, hemoglobin and electrolytes with repeat labs ordered for a.m. The impression and plan of care has been dictated as directed. : I performed a history and examination of this patient, discussed the same with the dictator. I agree with the dictator's note ,documented as a scribe. Any additional findings or plans will be noted.
[2018-05-09] MEDS: BENZOCAINE/MENTHOL LOZENG 1 EACH LOZENGE MUCOUS MEM PRN ×2 (01:51→20:58)
[2018-05-09] MEDS: MORPHINE SULFATE ER 30 MG TABLET PO PRN ×4 (01:52→23:14)
[2018-05-09] MEDS: HYDROcodone/APAP 10-325MG 1 EACH TAB PO PRN ×5 (04:24→20:57)
[2018-05-09] MEDS: NYSTATIN 100,000 UNIT/ML SUSP 500,000 UNIT/5 ML CUP PO SCH ×4 (04:25→23:08)
[2018-05-09 04:29] LABS: Glucose,Whole Blood 94 mg/dL (75-99)
[2018-05-09 07:07] LABS: Glucose,Whole Blood 102 mg/dL (75-99)
[2018-05-09] MEDS: LIPASE 5,000/PROTEASE 17,000/AMYLASE 24,000 PO SCH ×3 (07:44→17:18)
[2018-05-09] MEDS: INSULIN ASPART 100 UNIT/ML 1 ML 10 ML VIAL SQ SCH ×3 (07:49→17:25)
[2018-05-09 07:51] LABS: Anion Gap 5 mmol/L; Blood Urea Nitrogen 16 mg/dL (9-20); Calcium 8.7 mg/dL (8.4-10.2); Carbon Dioxide 31 mmol/L (22-30); Chloride 102 mmol/L (98-107); Glucose 78 mg/dL (74-99); Potassium 3.5 mmol/L (3.5-5.1); Sodium 138 mmol/L (137-145)
[2018-05-09] MEDS: CYANOCOBALAMIN 500 MCG TAB PO SCH (07:52)
[2018-05-09] MEDS: NICOTINE 21MG/24HR PATCH TRANSDERM SCH (07:52)
[2018-05-09] MEDS: DIGOXIN 125 MCG TAB PO SCH (07:52)
[2018-05-09] MEDS: FERROUS SULFATE 325 MG TAB PO SCH (07:52)
[2018-05-09] MEDS: SUCRALFATE 1 GM TAB PO SCH ×4 (07:52→23:14)
[2018-05-09] MEDS: TAMSULOSIN 0.4 MG CAP.ER.24H PO SCH ×2 (07:53→23:14)
[2018-05-09] MEDS: ONDANSETRON ODT 8 MG TAB.RAPDIS PO SCH ×2 (07:53→23:13)
[2018-05-09] MEDS: FINASTERIDE 5 MG TAB PO SCH (07:53)
[2018-05-09] MEDS: GABAPENTIN 400 MG CAP PO SCH ×3 (07:53→23:07)
[2018-05-09] MEDS: CHOLECALCIFEROL 400 UNIT TAB PO SCH (07:53)
[2018-05-09] MEDS: SIMETHICONE 80 MG CHEWABLE PO SCH ×2 (07:54→23:14)
[2018-05-09] MEDS: MAG HYDROX/AL HYDROX/SIMETH 30 ML, LIDOCAINE VISCOUS 30 ML, diphenhydrAMINE ELIXIR 75 M... PO SCH ×12 (07:54→23:08)
[2018-05-09 08:12] LABS: Anisocytosis Slight; Basophils % (A) 0 %; Eosinophils % (A) 1 %; HCT 28.7 % (39.0-53.0); Hypochromasia Marked; Lymphocytes # (A) 0.6 k/uL (1.0-4.8); Lymphocytes % (A) 9 %; MCH 23.3 pg (25.0-35.0); MCHC 31.9 g/dL (31.0-37.0); MCV 73.1 fL (80.0-100.0); Mean Platelet Volume 9.1; Microcytosis Moderate; Monocytes # (A) 0.3 k/uL (0-1.0); Monocytes % (A) 4 %; Neutrophils # (A) 5.8 k/uL (1.3-7.7); Neutrophils % (A) 83 %; Platelet Count 188 k/uL (150-450); Poikilocytosis Slight; RBC 3.92 m/uL (4.30-5.90); RDW 19.6 % (11.5-15.5)
[2018-05-09 08:15] LABS: HGB 9.1 gm/dL (13.0-17.5)
[2018-05-09] MEDS: IPRATROPIUM-ALBUTEROL 3 ML NEB INHALATION SCH ×4 (08:46→21:13)
[2018-05-09] MEDS: POLYETHYLENE GLYCOL 3350 17 GM POWD.PACK PO SCH (09:46)
[2018-05-09] MEDS: CLOTRIMAZOLE 1% CREAM 15 GM TUBE TOPICAL SCH (09:46)
[2018-05-09] MEDS: SENNOSIDES 8.6 MG TAB PO SCH ×2 (09:47→23:10)
[2018-05-09] MEDS: CHOLESTYRAMINE (WITH SUGAR) 4 GM PACKET PO SCH ×2 (12:02→17:20)
[2018-05-09 12:08] LABS: Glucose,Whole Blood 107 mg/dL (75-99)
[2018-05-09] MEDS: CLINDAMYCIN 600 MG in DEXTROSE 5% IN WATER 50 ML IVPB SCH ×2 (16:49)
[2018-05-09 17:03] LABS: Glucose,Whole Blood 176 mg/dL (75-99)
[2018-05-09 20:37] LABS: Glucose,Whole Blood 152 mg/dL (75-99)
--- NOTE | 2018-05-09 22:18 | PN ---
PROGRESS NOTE Mr. Lopez is a 67-year-old male with a known history of coronary disease who presented with febrile episode, has a history of pancreatic cancer. He is followed at the [facility] in regard to his cardiac status. He had an echocardiogram that showed a hyperdynamic LV function with mild to moderate aortic regurgitation. He is feeling much better at this time. His breathing is better. He is denying any symptoms of chest pain. He denies any dizziness. He is ambulating. He continues to have a Marx catheter. He has a prior history of coronary bypass grafting and coronary stenting. He continues to be at this time on atorvastatin 80 mg daily, digoxin 0.125 mg daily, furosemide 40 mg IV q.8 hours. PHYSICAL EXAMINATION: Blood pressure 148/70 with a heart rate in the 90s. LUNGS: No wheezes. HEART: Regular rate and rhythm. S1, S2 with a systolic murmur at the base. No diastolic murmur, no rub. ABDOMEN: Soft, nontender. EXTREMITIES: Thierry wrapping in place. LAB DATA: Revealed BUN and creatinine 16 and 0.94. Hemoglobin 9.1, platelet count of 188. IMPRESSION: 1. Cellulitis and febrile episode, being treated with antibiotics. 2. History of coronary disease status post bypass grafting. 3. Pancreatic cancer. RECOMMENDATION: I will re-initiate the treatment with the beta addison. I will stop his digoxin, follow his renal function and depending on his progress, further recommendation will be made. MMHANHL / IJN: [id number] /
--- NOTE | 2018-05-09 22:54 | PN ---
PROGRESS NOTE DATE OF SERVICE: 05/09/2018 This 67-year-old gentleman who was admitted with metastatic pancreatic cancer also had bilateral leg cellulitis. Also, the patient being closely monitored. No chest pain. No palpitations. No fever. EXAM: Alert and oriented. Pulse is 95 blood pressure 140/70, respirations 16, temperature 97.7, pulse ox 98% on room air. HEENT: Conjunctivae normal. Oral mucosa. NECK: No jugular venous distention. No lymph node enlargement. CARDIOVASCULAR: S1, S2. RESPIRATORY: Diminished breath sounds at the bases. Bilateral scattered rhonchi, no crackles. ABDOMEN: Soft, nontender. LEGS: No swelling. NERVOUS SYSTEM: No focal deficits. LABS: WBC is 7.1, hemoglobin is 9.1, sodium 138, potassium 3.5. ASSESSMENT: 1. Bilateral leg cellulitis, acute. 2. Metastatic pancreatic cancer. 3. Bicytopenia. 4. Normocytic anemia. 5. Hyperlipidemia. 6. Diabetes mellitus type 2. RECOMMENDATIONS: Continue current management, continue to monitor, continue symptomatic treatment. Otherwise, as this time will monitor the patient closely, continue with antibiotics. Closely follow with Infectious Disease. Guarded prognosis. Further recommendations to follow. MMODL / IJN: [id number] /
[2018-05-09] MEDS: METOPROLOL TARTRATE 25 MG TAB PO SCH (23:11)
[2018-05-09] MEDS: INSULIN DETEMIR 100 UNIT/ML 10 ML VIAL SQ SCH (23:11)
[2018-05-09] MEDS: ATORVASTATIN 80 MG TAB PO SCH (23:13)
[2018-05-10] MEDS: CLINDAMYCIN 600 MG in DEXTROSE 5% IN WATER 50 ML IVPB SCH ×6 (00:10→17:07)
[2018-05-10] MEDS: INSULIN ASPART 100 UNIT/ML 1 ML 10 ML VIAL SQ SCH ×5 (00:34→21:30)
[2018-05-10] MEDS: CLOTRIMAZOLE 1% CREAM 15 GM TUBE TOPICAL SCH ×3 (01:07→21:23)
[2018-05-10] MEDS: ceFAZolin IN SWFI 2 GM/20 ML SYRINGE IVP SCH ×4 (01:10→18:53)
[2018-05-10] MEDS: FUROSEMIDE 10 MG/ML 4 ML VIAL IV SCH ×3 (01:16→17:07)
[2018-05-10] MEDS: IPRATROPIUM-ALBUTEROL 3 ML NEB INHALATION SCH ×7 (02:02→23:10)
[2018-05-10] MEDS: NYSTATIN 100,000 UNIT/ML SUSP 500,000 UNIT/5 ML CUP PO SCH ×4 (05:10→21:24)
[2018-05-10] MEDS: MORPHINE SULFATE ER 30 MG TABLET PO PRN ×3 (06:14→21:20)
[2018-05-10 07:06] LABS: Glucose,Whole Blood 92 mg/dL (75-99)
[2018-05-10 08:11] LABS: Anion Gap 9 mmol/L; Blood Urea Nitrogen 18 mg/dL (9-20); Calcium 8.8 mg/dL (8.4-10.2); Carbon Dioxide 28 mmol/L (22-30); Chloride 101 mmol/L (98-107); Glucose 84 mg/dL (74-99); Potassium 3.4 mmol/L (3.5-5.1); Sodium 138 mmol/L (137-145)
[2018-05-10] MEDS: MAG HYDROX/AL HYDROX/SIMETH 30 ML, LIDOCAINE VISCOUS 30 ML, diphenhydrAMINE ELIXIR 75 M... PO SCH ×12 (08:11→21:21)
[2018-05-10] MEDS: SUCRALFATE 1 GM TAB PO SCH ×4 (08:12→21:24)
[2018-05-10] MEDS: SIMETHICONE 80 MG CHEWABLE PO SCH ×2 (08:12→21:22)
[2018-05-10] MEDS: LIPASE 5,000/PROTEASE 17,000/AMYLASE 24,000 PO SCH ×3 (08:12→17:09)
[2018-05-10] MEDS: GABAPENTIN 400 MG CAP PO SCH ×3 (08:12→21:21)
[2018-05-10] MEDS: ONDANSETRON ODT 8 MG TAB.RAPDIS PO SCH ×2 (08:13→21:22)
[2018-05-10] MEDS: FERROUS SULFATE 325 MG TAB PO SCH (08:13)
[2018-05-10] MEDS: FINASTERIDE 5 MG TAB PO SCH (08:13)
[2018-05-10] MEDS: CYANOCOBALAMIN 500 MCG TAB PO SCH (08:13)
[2018-05-10] MEDS: CHOLECALCIFEROL 400 UNIT TAB PO SCH (08:13)
[2018-05-10] MEDS: METOPROLOL TARTRATE 25 MG TAB PO SCH ×2 (08:13→21:23)
[2018-05-10] MEDS: TAMSULOSIN 0.4 MG CAP.ER.24H PO SCH ×2 (08:21→21:22)
[2018-05-10] MEDS: SENNOSIDES 8.6 MG TAB PO SCH ×2 (08:21→21:22)
[2018-05-10] MEDS: POLYETHYLENE GLYCOL 3350 17 GM POWD.PACK PO SCH (08:21)
[2018-05-10 08:32] LABS: Anisocytosis Slight; HCT 28.9 % (39.0-53.0); HGB 9.1 gm/dL (13.0-17.5); Hypochromasia Marked; MCHC 31.6 g/dL (31.0-37.0); MCV 72.8 fL (80.0-100.0); Mean Platelet Volume 8.9; Microcytosis Marked; Platelet Count 187 k/uL (150-450); Poikilocytosis Slight; RBC 3.97 m/uL (4.30-5.90); RDW 19.9 % (11.5-15.5); WBC 4.8 k/uL (3.8-10.6)
[2018-05-10 09:05] LABS: Lymphocytes # (M) 0.86 k/uL (1.0-4.8); Monocytes # (M) 0.72 k/uL (0-1.0); Myelocytes # (M) 0.19 k/uL (0); Myelocytes % 4 %; Neutrophils # (M) 3.07 k/uL (1.3-7.7); Neutrophils % (M) 64 %; Nucleated Red Blood Cells 1 /100 WBC (0-0); Total Cells Counted 200
[2018-05-10] MEDS ORDERED: Potassium Replacement Protocol 1 EACH MISC MISCELLANE PRN (09:19)
[2018-05-10] MEDS: NICOTINE 21MG/24HR PATCH TRANSDERM SCH (09:34)
[2018-05-10] MEDS: CHOLESTYRAMINE (WITH SUGAR) 4 GM PACKET PO SCH ×2 (09:53→17:09)
--- NOTE | 2018-05-10 09:55 | PN ---
PROGRESS NOTE DATE OF SERVICE: 05/09/2018 REASON FOR FOLLOWUP: Bilateral lower extremity cellulitis. INTERVAL HISTORY: The patient is afebrile, has been breathing comfortably. Denies significant chest pain or shortness of breath or cough. No abdominal pain. Still has significant swelling of the leg although the redness has mildly decreased. EXAMINATION: Blood pressure 148/73 with a pulse of 95, temperature 97.6. He is 98% on room air. GENERAL DESCRIPTION: Elderly male lying in bed in no distress. RESPIRATORY SYSTEM: Unlabored breathing, clear to auscultation anteriorly. HEART: S1, S2. Regular rate and rhythm. ABDOMEN: Soft. Bilateral leg swelling although the redness has decreased. LABS: Hemoglobin 9.1, white count 7.0 with a BUN of 16, creatinine 0.94. DIAGNOSTIC IMPRESSION AND PLAN: Patient with bilateral lower extremity cellulitis, left greater than the right. The patient's symptoms slowly responding to cefazolin and clindamycin and ( ). Continue supportive care. MMODL / IJN: [id number] /
[2018-05-10] MEDS: HYDROcodone/APAP 10-325MG 1 EACH TAB PO PRN ×2 (10:02→17:29)
[2018-05-10 11:01] VITALS: BMI 36.3
[2018-05-10 12:22] LABS: Glucose,Whole Blood 146 mg/dL (75-99)
[2018-05-10] MEDS: POTASSIUM CHLORIDE ER 20 MEQ TAB.ER PO SCH ×2 (13:03→13:19)
--- NOTE | 2018-05-10 15:22 | PN ---
PROGRESS NOTE Mr. Lopez is a 67-year-old male who has a history of coronary artery disease and pancreatic cancer. He presented with a febrile episode. He feels better today. His breathing is better. He is denying any symptoms of chest pain. He denies any dizziness or palpitations. He continues to have significant peripheral edema. He continues to be at this time on Lasix 40 mg IV q.8 hours, insulin, metoprolol tartrate 25 mg twice a day, nicotine patch, simethicone, Carafate and Flomax. PHYSICAL EXAMINATION: Blood pressure 101/49 with a heart rate in the 90s. LUNGS: Clear. HEART: Regular rate and rhythm. S1, S2. No S3, with a systolic murmur. No diastolic murmur. ABDOMEN: Soft, nontender. EXTREMITIES: Two plus edema bilaterally. LAB DATA: Lab data revealed a BUN creatinine of 18 and 0.95, potassium 3.4, hemoglobin of 9.1. IMPRESSION: 1. Cellulitis and febrile episode. 2. History of coronary artery disease, status post coronary artery bypass grafting. 3. Pancreatic cancer. RECOMMENDATIONS: Will continue on the IV diuretic at this point. Patient continues to have significant edema. Will continue to follow his heart rate and adjust the dose of his beta addison. Will follow his renal function. Depending on his progress, further recommendations will be made. MMODL / IJN: [id number] /
[2018-05-10 17:02] LABS: Glucose,Whole Blood 104 mg/dL (75-99)
--- NOTE | 2018-05-10 20:01 | PN ---
PROGRESS NOTE DATE OF SERVICE: 05/10/2018 This 67-year-old gentleman who was admitted with bilateral leg ulcers and elevated leg cellulitis also had metastatic pancreatic cancer. The patient is on IV antibiotic. The venous ultrasound study showed no evidence of any DVT at this time. The erythema is slightly better. No chest pain. No palpitations. No fever. On exam, the patient is alert and oriented x3. Pulse is 98, blood pressure 101/49, respiration 18, temperature 97.7, pulse ox 94% on room air. HEENT: Conjunctivae normal. Oral mucosa moist. NECK: No jugular venous distention. No carotid bruit. No lymph node enlargement. CARDIOVASCULAR SYSTEM: S1, S2 muffled. RESPIRATORY SYSTEM: Breath sounds diminished at the bases. No rhonchi. No crackles. ABDOMEN: Soft, non-tender. LEGS: Bilateral leg cellulitis and edema present. NERVOUS SYSTEM: No focal deficit. LABS: WBC 4.8, hemoglobin 9.1, glucose 146. ASSESSMENT: 1. Bilateral leg cellulitis, acute. 2. Metastatic pancreatic cancer. 3. Bicytopenia. 4. Normocytic anemia. 5. Hyperlipidemia. 6. Diabetes mellitus, type 2. RECOMMENDATIONS AND DISCUSSION: I recommend to continue current medication, continue with the monitoring, symptomatic treatment. Otherwise at this time I would recommend continuing with the IV antibiotics. Closely monitor with multiple consultants. Guarded prognosis. Further recommendations to follow. MMODL / IJN: [id number] /
[2018-05-10 20:58] LABS: Glucose,Whole Blood 171 mg/dL (75-99)
[2018-05-10] MEDS: ATORVASTATIN 80 MG TAB PO SCH (21:23)
[2018-05-10] MEDS: INSULIN DETEMIR 100 UNIT/ML 10 ML VIAL SQ SCH (21:31)
[2018-05-11] MEDS: CLINDAMYCIN 600 MG in DEXTROSE 5% IN WATER 50 ML IVPB SCH ×6 (00:19→15:40)
[2018-05-11] MEDS: ceFAZolin IN SWFI 2 GM/20 ML SYRINGE IVP SCH ×4 (00:20→17:26)
[2018-05-11] MEDS: FUROSEMIDE 10 MG/ML 4 ML VIAL IV SCH ×3 (00:21→15:40)
--- NOTE | 2018-05-11 02:07 | PN ---
PROGRESS NOTE DATE OF SERVICE: 05/10/2018. REASON FOR FOLLOW UP: 1. Bilateral leg cellulitis. 2. Oral thrush. INTERVAL HISTORY: The patient is afebrile, has been breathing comfortably. Denies significant chest pain. Occasional cough. No abdominal pain. Still has swelling in the leg, has slightly decreased intensity. Redness has decreased. No pain in the leg. EXAMINATION: Blood pressure is 113/58 with a pulse of 89, temperature 98.1. He is 94% on room air. General description is an elderly male up in the bed in no distress. Respiratory system: Unlabored breathing with decreased no wheeze. Heart S1, S2. Regular rate. ABDOMEN: Soft, no tenderness. Legs still have significant swelling slightly decreased. . He did have evidence of athlete's foot. LABS: Hemoglobin is 9.1, white count 4.8 with a BUN of 18, creatinine 0.98. DIAGNOSTIC IMPRESSION/PLAN: 1. Patient with extensive lower extremity cellulitis left greater than the right with evidence of athlete's foot, likely streptococcal disease currently on cefazolin and plan to continue for another 24 to 48 hours before switching to oral. Advised Thierry wrap to keep the swelling down. 2. Athlete's foot will add nystatin powder to the toes, in between the toes twice a day. 3. Oral thrush, nystatin swish and swallow to continue. MMODL / IJN: [id number] /
[2018-05-11 03:24] LABS: Glucose,Whole Blood 80 mg/dL (75-99)
[2018-05-11] MEDS: MORPHINE SULFATE ER 30 MG TABLET PO PRN ×4 (03:29→20:55)
[2018-05-11] MEDS: IPRATROPIUM-ALBUTEROL 3 ML NEB INHALATION SCH ×5 (03:35→19:38)
[2018-05-11] MEDS: NYSTATIN 100,000 UNIT/ML SUSP 500,000 UNIT/5 ML CUP PO SCH ×4 (04:09→23:00)
[2018-05-11 07:24] LABS: Glucose,Whole Blood 179 mg/dL (75-99)
[2018-05-11] MEDS: INSULIN ASPART 100 UNIT/ML 1 ML 10 ML VIAL SQ SCH ×4 (07:34→20:57)
[2018-05-11] MEDS: HYDROcodone/APAP 10-325MG 1 EACH TAB PO PRN ×3 (07:35→16:36)
[2018-05-11] MEDS: MAG HYDROX/AL HYDROX/SIMETH 30 ML, LIDOCAINE VISCOUS 30 ML, diphenhydrAMINE ELIXIR 75 M... PO SCH ×12 (07:36→20:58)
[2018-05-11] MEDS: SIMETHICONE 80 MG CHEWABLE PO SCH ×2 (07:37→20:56)
[2018-05-11] MEDS: FINASTERIDE 5 MG TAB PO SCH (07:37)
[2018-05-11] MEDS: ONDANSETRON ODT 8 MG TAB.RAPDIS PO SCH ×2 (07:38→20:56)
[2018-05-11] MEDS: NYSTATIN 100,000 UNIT/GM POWD 15 GM TOPICAL SCH ×2 (07:39→20:56)
[2018-05-11 07:41] LABS: Anisocytosis Slight; HGB 8.2 gm/dL (13.0-17.5); Hypochromasia Marked; MCH 22.8 pg (25.0-35.0); MCHC 30.4 g/dL (31.0-37.0); Mean Platelet Volume 7.4; Microcytosis Moderate; Platelet Count 184 k/uL (150-450); Poikilocytosis Moderate
[2018-05-11] MEDS: SENNOSIDES 8.6 MG TAB PO SCH ×2 (07:41→20:56)
[2018-05-11] MEDS: GABAPENTIN 400 MG CAP PO SCH ×3 (07:42→20:56)
[2018-05-11] MEDS: POLYETHYLENE GLYCOL 3350 17 GM POWD.PACK PO SCH (07:42)
[2018-05-11] MEDS: METOPROLOL TARTRATE 25 MG TAB PO SCH ×2 (07:42→20:54)
[2018-05-11] MEDS: TAMSULOSIN 0.4 MG CAP.ER.24H PO SCH ×2 (07:42→20:55)
[2018-05-11] MEDS: FERROUS SULFATE 325 MG TAB PO SCH (07:43)
[2018-05-11] MEDS: SUCRALFATE 1 GM TAB PO SCH ×4 (07:43→20:55)
[2018-05-11] MEDS: LIPASE 5,000/PROTEASE 17,000/AMYLASE 24,000 PO SCH ×3 (07:44→17:26)
[2018-05-11] MEDS: CYANOCOBALAMIN 500 MCG TAB PO SCH (07:46)
[2018-05-11] MEDS: CHOLECALCIFEROL 400 UNIT TAB PO SCH (07:46)
[2018-05-11] MEDS: CHOLESTYRAMINE (WITH SUGAR) 4 GM PACKET PO SCH ×2 (07:47→16:42)
[2018-05-11] MEDS: NICOTINE 21MG/24HR PATCH TRANSDERM SCH (07:47)
[2018-05-11] MEDS: CLOTRIMAZOLE 1% CREAM 15 GM TUBE TOPICAL SCH ×2 (07:47→20:57)
[2018-05-11 08:08] LABS: Anion Gap 5 mmol/L; Blood Urea Nitrogen 18 mg/dL (9-20); Calcium 8.3 mg/dL (8.4-10.2); Carbon Dioxide 28 mmol/L (22-30); Chloride 106 mmol/L (98-107); Glucose 127 mg/dL (74-99); Potassium 3.3 mmol/L (3.5-5.1); Sodium 139 mmol/L (137-145)
[2018-05-11 08:58] LABS: Band Neutrophils % 3 %; Eosinophils # (M) 0.05 k/uL (0-0.7); Lymphocytes # (M) 1.14 k/uL (1.0-4.8); Metamyelocytes # (M) 0.31 k/uL (0); Metamyelocytes % 6 %; Monocytes # (M) 0.73 k/uL (0-1.0); Myelocytes # (M) 0.36 k/uL (0); Myelocytes % 7 %; Neutrophils % (M) 49 %; Nucleated Red Blood Cells 1 /100 WBC (0-0); Total Cells Counted 200; WBC 5.2 k/uL (3.8-10.6)
[2018-05-11] MEDS ORDERED: Potassium Replacement Protocol 1 EACH MISC MISCELLANE PRN (09:52)
[2018-05-11] MEDS ORDERED: POTASSIUM CHLORIDE ER 20 MEQ TAB.ER PO STA (11:07)
[2018-05-11 11:39] LABS: Glucose,Whole Blood 119 mg/dL (75-99)
[2018-05-11] MEDS: POTASSIUM CHLORIDE ER 20 MEQ TAB.ER PO SCH ×2 (11:41→12:36)
[2018-05-11 16:30] LABS: Glucose,Whole Blood 164 mg/dL (75-99)
[2018-05-11 20:02] LABS: Glucose,Whole Blood 151 mg/dL (75-99)
--- NOTE | 2018-05-11 20:38 | PN ---
PROGRESS NOTE DATE OF SERVICE: 05/11/2018 This 67-year-old gentleman admitted with bilateral leg cellulitis also had metastatic pancreatic cancer. No chest pain. No palpitations. No fever. The patient also had bilateral leg swelling also. EXAM: Alert and oriented x3. The pulse is 75, blood pressure 90/42, respirations 17, temperature 97.2. Pulse ox 100 percent on room air. HEENT: Conjunctivae normal. Oral mucosa moist. Neck is no jugular venous distention. No carotid bruit. No lymph node enlargement. Cardiovascular: S1, S2 muffled. Respiratory: Breath sounds diminished in the bases. Bilateral scattered rhonchi and crackles. Abdomen is soft, nontender. No mass palpable. Legs are no edema. No swelling. Central nervous system: No focal deficits. LABS: Creatinine 0.89. WBC 5.8, hemoglobin is 8.2. ASSESSMENT: 1. Bilateral leg cellulitis, acute. 2. Bilateral leg swelling. 3. Metastatic pancreatic cancer. 4. Bicytopenia. 5. Normocytic anemia. 6. Hyperlipidemia. 7. Diabetes mellitus type 2. RECOMMENDATIONS AND DISCUSSION: Recommend to continue current medications, management and symptomatic treatment. Continue with IV antibiotics. Closely monitor lytes. Closely continue the diuretics. Guarded prognosis. Further recommendations to follow. MMODL / IJN: [id number] /
[2018-05-11] MEDS: ATORVASTATIN 80 MG TAB PO SCH (20:55)
[2018-05-11] MEDS: INSULIN DETEMIR 100 UNIT/ML 10 ML VIAL SQ SCH (20:56)
[2018-05-12] MEDS: IPRATROPIUM-ALBUTEROL 3 ML NEB INHALATION SCH ×6 (00:11→20:16)
[2018-05-12] MEDS: FUROSEMIDE 10 MG/ML 4 ML VIAL IV SCH ×4 (00:28→23:21)
[2018-05-12] MEDS: ceFAZolin IN SWFI 2 GM/20 ML SYRINGE IVP SCH ×5 (00:28→23:20)
[2018-05-12] MEDS: CLINDAMYCIN 600 MG in DEXTROSE 5% IN WATER 50 ML IVPB SCH ×8 (00:28→23:19)
[2018-05-12] MEDS: MORPHINE SULFATE ER 30 MG TABLET PO PRN ×4 (03:23→22:03)
[2018-05-12] MEDS: NYSTATIN 100,000 UNIT/ML SUSP 500,000 UNIT/5 ML CUP PO SCH ×4 (04:17→22:03)
[2018-05-12 05:39] LABS: Glucose,Whole Blood 115 mg/dL (75-99)
[2018-05-12] MEDS: INSULIN ASPART 100 UNIT/ML 1 ML 10 ML VIAL SQ SCH ×4 (06:57→21:20)
--- NOTE | 2018-05-12 07:35 | PN ---
PROGRESS NOTE DATE OF SERVICE: 05/11/2018. REASON FOR FOLLOWUP: 1. Bilateral lower extremity cellulitis. 2. Athlete's foot and oral thrush. INTERVAL HISTORY: The patient is afebrile, has been breathing comfortably. Denies having any significant chest pain, shortness of breath, cough, no abdominal pain, no diarrhea. He did have swelling in the leg with redness has slightly decreased. EXAMINATION: Blood pressure 134/61 with a pulse of 85. Temperature is 97.8. General description is an elderly male up in the bed in no distress. Respiratory system unlabored breathing with decreased breath sounds in the base, with no wheeze. Heart S1, S2. Regular rate and rhythm. Abdomen soft, no tenderness. Legs do have some swelling with redness slightly decreased. LABS: Hemoglobin 8.8, white count 5.2. DIAGNOSTIC IMPRESSION/PLAN: 1. Patient with acute bilateral lower extremity cellulitis left greater than the right. The patient to continue with an Thierry wrap to keep the swelling down. Otherwise to keep the leg elevated. Continue patient on cefazolin and Clinda. If diarrhea has any worsening, we will discontinue the clindamycin and plan to finish therapy with oral Keflex. 2. Athlete's foot, continue with Nystatin powder in between the toe. 3. Oral thrush to continue with the nystatin swish and swallow. MMODL / IJN: [id number] /
[2018-05-12] MEDS: CHOLESTYRAMINE (WITH SUGAR) 4 GM PACKET PO SCH ×2 (08:10→17:18)
[2018-05-12] MEDS: LIPASE 5,000/PROTEASE 17,000/AMYLASE 24,000 PO SCH ×3 (08:11→17:20)
[2018-05-12] MEDS: TAMSULOSIN 0.4 MG CAP.ER.24H PO SCH ×2 (08:11→21:16)
[2018-05-12] MEDS: SENNOSIDES 8.6 MG TAB PO SCH ×2 (08:11→21:15)
[2018-05-12] MEDS: SIMETHICONE 80 MG CHEWABLE PO SCH ×2 (08:11→21:16)
[2018-05-12] MEDS: POLYETHYLENE GLYCOL 3350 17 GM POWD.PACK PO SCH (08:11)
[2018-05-12] MEDS: CHOLECALCIFEROL 400 UNIT TAB PO SCH (08:12)
[2018-05-12] MEDS: FINASTERIDE 5 MG TAB PO SCH (08:12)
[2018-05-12] MEDS: CYANOCOBALAMIN 500 MCG TAB PO SCH (08:12)
[2018-05-12] MEDS: FERROUS SULFATE 325 MG TAB PO SCH (08:13)
[2018-05-12] MEDS: CLOTRIMAZOLE 1% CREAM 15 GM TUBE TOPICAL SCH ×2 (08:13→21:17)
[2018-05-12] MEDS: GABAPENTIN 400 MG CAP PO SCH ×3 (08:14→22:04)
[2018-05-12] MEDS: SUCRALFATE 1 GM TAB PO SCH ×4 (08:14→21:16)
[2018-05-12] MEDS: METOPROLOL TARTRATE 25 MG TAB PO SCH ×2 (08:15→21:13)
[2018-05-12] MEDS: NICOTINE 21MG/24HR PATCH TRANSDERM SCH (08:15)
[2018-05-12] MEDS: ONDANSETRON ODT 8 MG TAB.RAPDIS PO SCH ×2 (08:15→21:15)
[2018-05-12] MEDS: NYSTATIN 100,000 UNIT/GM POWD 15 GM TOPICAL SCH ×2 (08:16→21:15)
[2018-05-12] MEDS: MAG HYDROX/AL HYDROX/SIMETH 30 ML, LIDOCAINE VISCOUS 30 ML, diphenhydrAMINE ELIXIR 75 M... PO SCH ×12 (08:16→22:03)
[2018-05-12] MEDS: HYDROcodone/APAP 10-325MG 1 EACH TAB PO PRN ×4 (08:33→21:11)
[2018-05-12 08:36] LABS: Anion Gap 10 mmol/L; Blood Urea Nitrogen 17 mg/dL (9-20); Calcium 8.6 mg/dL (8.4-10.2); Carbon Dioxide 23 mmol/L (22-30); Chloride 105 mmol/L (98-107); Glucose 163 mg/dL (74-99); Potassium 3.2 mmol/L (3.5-5.1); Sodium 138 mmol/L (137-145)
[2018-05-12] MEDS ORDERED: Potassium Replacement Protocol 1 EACH MISC MISCELLANE PRN (09:30)
[2018-05-12] MEDS: POTASSIUM CHLORIDE ER 20 MEQ TAB.ER PO SCH ×2 (10:49→13:40)
[2018-05-12 11:36] LABS: Glucose,Whole Blood 179 mg/dL (75-99)
--- NOTE | 2018-05-12 13:33 | PN ---
PROGRESS NOTE Mr. Lopez is a 67-year-old male who presented with symptoms of progressive dyspnea, peripheral edema, and evidence of cellulitis. He has a history of pancreatic cancer, history of coronary artery disease. He is feeling better overall. His weight is down. He is denying any chest pain. No dizziness. No palpitation. He is anxious to go home tomorrow. He denies any dizziness or palpitation. He denies any nausea. He continues to be on Lasix 40 mg IV q.8 hours, insulin, metoprolol tartrate 25 mg twice a day, potassium supplement, Lipitor 80 mg daily. PHYSICAL EXAMINATION: Blood pressure 110/50 with a heart rate in the 80s. Lungs no wheezes. HEART: Regular rate and rhythm S1, S2. No S3 with a systolic murmur. ABDOMEN: Soft, nontender. Extremities: +2 edema, improved compared to before. LAB DATA: BUN and creatinine 17 and 0.94, potassium 3.2. IMPRESSION: 1. Cellulitis with peripheral edema, improving. 2. Pancreatic cancer. 3. History of coronary artery disease. 4. Hypertension. RECOMMENDATIONS: From the cardiac standpoint, I will continue on the intravenous diuretic for 24 hours, switch him to oral diuretics tomorrow and if he is stable, probably can be discharged home. We will see him on as needed basis. Please free to call us for any questions. MMODL / IJN: [id number] /
[2018-05-12] MEDS: LOPERAMIDE 2 MG CAP PO PRN ×2 (13:40→19:28)
[2018-05-12 17:14] LABS: Glucose,Whole Blood 126 mg/dL (75-99)
[2018-05-12 21:10] LABS: Glucose,Whole Blood 204 mg/dL (75-99)
[2018-05-12] MEDS: INSULIN DETEMIR 100 UNIT/ML 10 ML VIAL SQ SCH ×2 (21:12→21:17)
[2018-05-12] MEDS: ATORVASTATIN 80 MG TAB PO SCH (21:17)
--- NOTE | 2018-05-12 23:02 | PN ---
PROGRESS NOTE DATE OF SERVICE: 05/12/2018 This 67-year-old gentleman who was admitted with bilateral leg cellulitis also had bilateral legs swelling also. The patient had metastatic pancreatic cancer and bicytopenia. The patient on IV antibiotics for leg swelling and erythema. The patient has been monitored, improved significantly and cultures are negative so far. PHYSICAL EXAM: Alert and oriented. Pulse is 80, blood pressure 110/53, respirations 20, temperature 97 degrees, pulse ox 98% on room air. HEENT: Conjunctivae normal. Oral mucosa. NECK: No jugular venous distention. No lymph node enlargement. CARDIOVASCULAR: S1, S2. RESPIRATORY: Diminished breath sounds at the bases. A few scattered rhonchi. ABDOMEN: Soft, nontender. LEGS: ( ). NERVOUS SYSTEM: No focal deficits. LAB STUDIES: WBC 5.4, hemoglobin is 8.2, sodium 138, potassium 3.2. ASSESSMENT: 1. Bilateral leg cellulitis and acute. 2. Bilateral leg swelling. 3. Metastatic pancreatic cancer. 4. Bicytopenia. 5. Normocytic anemia. 6. Hyperlipidemia. 7. Diabetes type 2. 8. History of coronary artery disease. RECOMMENDATIONS: Recommend to continue current medication, continue symptomatic treatment. Continue with the diuretics and antibiotics. The patient ( ). The patient is not short of breath at this time. Further recommendations to follow. MMODL / IJN: [id number] /
--- NOTE | 2018-05-13 00:24 | PN ---
PROGRESS NOTE DATE OF SERVICE: 05/12/2018. REASON FOR FOLLOW UP: 1. Bilateral lower extremity cellulitis. 2. Athlete's foot. INTERVAL HISTORY: The patient is currently afebrile, has been breathing comfortably. Denies having any chest pain or shortness of breath, or cough. No abdominal pain. The left leg swelling and redness has decreased. EXAMINATION: Blood pressure is 110/53, pulse of 80, temperature 97. He is 93% on room air. General description is an elderly male lying in bed in no distress. Respiratory system: Unlabored breathing. Clear to auscultation anteriorly. HEART: S1, S2. Regular rate and rhythm. Abdomen soft, no tenderness. Leg swelling and redness slightly decreased. LABS: BUN of 17, creatinine 0.94. DIAGNOSTIC IMPRESSION AND PLAN: 1. Patient with bilateral lower extremity cellulitis, left greater than the right. The patient seemed to have shown clinical improvement. He will continue on cefazolin with a plan to finish therapy with oral Keflex 500 mg q.6 hours for another 7-10 days along with Thierry wrap to keep the swelling down. 2. The patient with Athlete's foot, nystatin powder in between the toes twice a day for about a week. MMODL / IJN: [id number] /
[2018-05-13] MEDS: IPRATROPIUM-ALBUTEROL 3 ML NEB INHALATION SCH ×5 (00:26→15:59)
[2018-05-13] MEDS: LOPERAMIDE 2 MG CAP PO PRN ×3 (01:12→17:15)
[2018-05-13] MEDS: HYDROcodone/APAP 10-325MG 1 EACH TAB PO PRN ×4 (01:12→17:15)
[2018-05-13] MEDS: BENZOCAINE/MENTHOL LOZENG 1 EACH LOZENGE MUCOUS MEM PRN (01:17)
[2018-05-13] MEDS: MORPHINE SULFATE ER 30 MG TABLET PO PRN ×2 (03:53→10:00)
[2018-05-13 03:54] LABS: Glucose,Whole Blood 93 mg/dL (75-99)
[2018-05-13] MEDS: NYSTATIN 100,000 UNIT/ML SUSP 500,000 UNIT/5 ML CUP PO SCH ×3 (03:54→17:20)
[2018-05-13] MEDS: ceFAZolin IN SWFI 2 GM/20 ML SYRINGE IVP SCH ×2 (06:03→12:24)
[2018-05-13 07:08] LABS: Glucose,Whole Blood 134 mg/dL (75-99)
[2018-05-13] MEDS: INSULIN ASPART 100 UNIT/ML 1 ML 10 ML VIAL SQ SCH ×2 (09:25→12:29)
[2018-05-13] MEDS: MAG HYDROX/AL HYDROX/SIMETH 30 ML, LIDOCAINE VISCOUS 30 ML, diphenhydrAMINE ELIXIR 75 M... PO SCH ×8 (09:27→17:18)
[2018-05-13] MEDS: LIPASE 5,000/PROTEASE 17,000/AMYLASE 24,000 PO SCH ×2 (09:28→14:53)
[2018-05-13] MEDS: FUROSEMIDE 10 MG/ML 4 ML VIAL IV SCH ×2 (09:32→17:04)
[2018-05-13] MEDS: CLINDAMYCIN 600 MG in DEXTROSE 5% IN WATER 50 ML IVPB SCH ×2 (09:32)
[2018-05-13] MEDS: GABAPENTIN 400 MG CAP PO SCH ×2 (09:33→17:16)
[2018-05-13] MEDS: SUCRALFATE 1 GM TAB PO SCH ×2 (09:33→12:30)
[2018-05-13] MEDS: NICOTINE 21MG/24HR PATCH TRANSDERM SCH (09:34)
[2018-05-13] MEDS: TAMSULOSIN 0.4 MG CAP.ER.24H PO SCH (09:35)
[2018-05-13] MEDS: SENNOSIDES 8.6 MG TAB PO SCH (09:35)
[2018-05-13] MEDS: CYANOCOBALAMIN 500 MCG TAB PO SCH (09:35)
[2018-05-13] MEDS: SIMETHICONE 80 MG CHEWABLE PO SCH (09:35)
[2018-05-13] MEDS: CHOLECALCIFEROL 400 UNIT TAB PO SCH (09:37)
[2018-05-13] MEDS: POLYETHYLENE GLYCOL 3350 17 GM POWD.PACK PO SCH (09:37)
[2018-05-13] MEDS: CHOLESTYRAMINE (WITH SUGAR) 4 GM PACKET PO SCH (09:40)
[2018-05-13] MEDS: CLOTRIMAZOLE 1% CREAM 15 GM TUBE TOPICAL SCH (09:40)
[2018-05-13] MEDS: FINASTERIDE 5 MG TAB PO SCH (09:41)
[2018-05-13] MEDS: METOPROLOL TARTRATE 25 MG TAB PO SCH (09:42)
[2018-05-13] MEDS: NYSTATIN 100,000 UNIT/GM POWD 15 GM TOPICAL SCH (09:43)
[2018-05-13] MEDS: ONDANSETRON ODT 8 MG TAB.RAPDIS PO SCH (09:43)
[2018-05-13] MEDS: FERROUS SULFATE 325 MG TAB PO SCH (09:46)
[2018-05-13 11:17] LABS: Glucose,Whole Blood 157 mg/dL (75-99)
[2018-05-13 12:41] VITALS: BP 126/58; PULSE 73; RESP 16; TEMP 98.2
--- NOTE | 2018-05-13 16:32 | PN ---
PROGRESS NOTE DATE OF SERVICE: 05/13/2018. REASON FOR FOLLOWUP: Bilateral lower extremity cellulitis. INTERVAL HISTORY: The patient is currently afebrile. He is breathing comfortably. The patient denies having any chest pain. No shortness of breath or cough. No abdominal pain. No pain to the leg and no diarrhea. EXAMINATION: Blood pressure is 128/57, pulse of 82, temperature 97.8. He is 95% on room air. General description is an elderly male lying in bed in no distress. Respiratory system: Unlabored breathing, clear to auscultation anteriorly. Heart S1, S2 regular rate and rhythm. ABDOMEN: Soft, no tenderness. LABS: No new labs have been obtained today. DIAGNOSTIC IMPRESSION AND PLAN: 1. Patient with bilateral lower extremity cellulitis, left greater than the right. Plan at this time is to finish therapy with oral Keflex 500 mg q.6 hours for 10 days. 2. Athlete's foot, Nystatin powder between the toes twice a day for about a week. The patient was advised to continue with Thierry wrap to keep the swelling down and continue supportive care. MMODL / IJN: [id number] /
--- NOTE | 2018-05-13 17:37 | P.PN ---
Subjective Progress Note Date: 05/13/18 Principal diagnosis: Metastatic Pancreatic Cancer - Liver, Increased LE Edema, Subjective Fevers, SOB Patient seen in follow-up today, BLE edema and erythema improved, still with diarrhea, unable to discharge on pancreatic enzymes secondary to insurance coverage, will attempt to obtain outpatient. Objective - Vital Signs Vital signs: Vital Signs Temp 98.2 F 05/13/18 12:17 Pulse 73 05/13/18 12:17 Resp 16 05/13/18 12:17 BP 126/58 05/13/18 12:17 Pulse Ox 97 05/13/18 12:17 Intake & Output 05/12/18 05/13/18 05/13/18 18:59 06:59 18:59 Intake Total 1240 700 590 Output Total 1675 1200 1300 Balance -435 500 -710 Weight 109 kg 107 kg Intake: Intake, IV Titration 50 100 50 Amount Clindamycin 600 mg In 50 100 50 Dextrose 5% in Water 50 ml @ 50 mls/hr IVPB Q8HR [facility] Rx#:[id number] Oral 1190 600 540 Output: Urine 1675 1200 1300 Uretheral (Marx) 1200 Other: Voiding Method Indwelling Catheter Indwelling Catheter Indwelling Catheter # Voids 1 # Bowel Movements 4 1 - Exam General appearance: alert Head exam: Normocephalic atraumatic Eye exam: non-icteric sclera, normal appearance, PERRL ENT exam: normal oropharynx Neck exam: Supple, no lymphadenopathy, Respiratory exam: Blateral decreased breath sounds at bases Cardiovascular Exam: irregular rate, rhythm GI/Abdominal exam: Obese, soft, tenderness Extremities exam: pedal edema (+3 bilaterally) left greater right, Bilateral erythema Neurological exam: Non focal Psychiatric exam: normal affect, non focal - Labs CBC & Chem 7: 05/11/18 07:02 05/12/18 08:04 Labs: Abnormal Lab Results - Last 24 Hours (Table) 05/12/18 05/13/18 05/13/18 Range/Units 20:37 07:06 11:15 POC Glucose (mg/dL) 204 H 134 H 157 H (75-99) mg/dL Assessment and Plan Plan: Assessment and Recommendations: 1. Metastatic Pancreatic Cancer - Treatment through [facility] - Status Post 2 weekly infusions of Gemcitabine and Abraxane - Currently on hold and will follow-up to resume treatment at [facility] with our medical oncology office - Please obtain all records from [facility] - Explained to patient and that with his other current issues and decreased blood counts he will not receive chemotherapy this week as scheduled, he will need a appointment with Dr. Deleon next week and then chemotherapy maybe resumed at that time if his blood counts have improved. 2. Subjective fever and Chills: Afebrile since admission: - English CUlture Pending - Blood cultures neg at 24 hours. - UA - neg 3. Leukopenia - Secondary to chemotherapy - Monitor for s/s of infection. If WBC less than 1.5 or Neuts less than 0.8 may initiate Zarxio - Improved today, continue Zarxio, possible discontinue tomorrow - PLEASE RUN DIFFerential on CBC 4. Normocytic Anemia: Secondary to chemotherapy - If less than 7 transfuse - Will likely require transfusion tomorrow. 5. BLE Edema - Dopplers negative - worsening - cardiology following - IV abx 6. Urinary Retention: - urology following, catheter - This is a chronic issue per patient which initially started with recurrent stones. He utilizes a self straight catheterization at home 7. Diarrhea: - C-diff Negative - Monitor electrolytes - Stool Studies O and P, Fecal Leuks, and Culture ordered - Pancreatic Enzymes prior to meals - Questran 8. Afib: - Patient was previously treated with xarelto although this has been held per Oncology Team at [facility] in [place]. 9. CAB Stents in 2003: - Plavix was recently Stopped by Oncology team in [place] prior to starting chemotherapy and he was instructed to continue on baby aspirin daily. Patient with many questions today, most have been deferred to primary team as related to other medical problems. Will obtain options for pancreatic enzymes as outpatient, continue questran and follow-up with Dr. Deelon COntinue to hold chemo untill after BLE edema fills. Ruthy Cuellar NP
--- NOTE | 2018-05-13 18:28 | DS ---
DISCHARGE SUMMARY DATE OF SERVICE: 05/13/2018 FINAL DIAGNOSES: 1. Bilateral leg cellulitis and cellulitis. 2. Bilateral leg swelling. 3. Metastatic pancreatic cancer. 4. Bicytopenia. 5. Normocytic anemia. 6. Hyperlipidemia. 7. Diabetes mellitus type 2. 8. History of coronary artery disease. DISCHARGE DISPOSITION: The patient is being discharged in stable condition with guarded prognosis. HISTORY OF PRESENT ILLNESS: This 67-year-old gentleman with a past medical history of multiple medical problems was admitted with bilateral leg cellulitis. The patient also had bilateral leg edema also. The patient was treated symptomatically, improved significantly. IV antibiotics were given. On exam, vital signs were stable. Cardio system: S1, S2. Abdomen soft. Nervous system: No focal deficits. DISCHARGE ADVICE AND MEDICATIONS: 1. Discharge diet is cardiac diet. 2. Activity limited until followup. 3. Follow up with Dr. Saunders in 2-3 days. 4. Follow up with Dr. Gaytan and Dr. Gonsales as recommended. MEDICATIONS ARE: 1. Albuterol 1 puff q.6h. 2. Lipitor 80 mg q.h.s. 3. Vitamin D3 800 units daily. 4. Vitamin B12 1000 mg p.o. daily. 5. Iron sulfate 320 mg daily. 6. Proscar 5 mg p.o. daily. 7. Lasix 40 mg p.o. t.i.d. 8. Neurontin 400 mg p.o. t.i.d. 9. [place] 10 mg q.4h. 10.Lantus 80 units subcu q.h.s. 11. ointment for local application. 12.Melatonin 3 mg q.h.s. 13.MS Contin 30 mg q.6h p.r.n. 14.Zofran 8 mg b.i.d. 15.MiraLAX 17 g daily. 16.Compazine 10 mg q.6h p.r.n. 17.Senokot 17.2 mg p.o. b.i.d. 18.Carafate 1 g p.o. q.i.d. 19.Flomax 0.4 b.i.d. 20.Spiriva 2 puffs daily. 21.Cepacol p.r.n. 22.Keflex 500 mg q.6 hours for 10 days. 23.Lipase. 24.Protease. 25.Amylase. 26.Zenpep as before. 27.Imodium 2 mg q.i.d. p.r.n. 28.Lopressor 25 mg p.o. b.i.d. 29.Habitrol 21 daily. 30.Nystatin local application, nystatin suspension also. Once again, the patient is being discharged in stable condition with guarded prognosis. Followup labs with the primary physician. Total time taken 35 minutes. SACHA / MAEN: [id number] / LEANDRA
== END 2018-05-13 17:30 | disposition home health service (06) | DRG 602 ==
LOC: EC 22:16 → 3NMEDONC 05-03 02:46
PROVIDERS: ADMIT Hospitalist; ATTEND Hospitalist
DX: L03.115 Cellulitis of right lower limb (principal); I50.33 Acute on chronic diastolic (congestive) heart failure; B37.0 Candidal stomatitis; C25.9 Malignant neoplasm of pancreas, unspecified; C78.7 Secondary malignant neoplasm of liver and intrahepatic bile duct; I13.0 Hypertensive heart and chronic kidney disease with heart failure and stage 1 through stage 4 chronic kidney disease, or unspecified chronic kidney disease; I47.1 Supraventricular tachycardia; L97.919 Non-pressure chronic ulcer of unspecified part of right lower leg with unspecified severity; L97.929 Non-pressure chronic ulcer of unspecified part of left lower leg with unspecified severity; I42.9 Cardiomyopathy, unspecified; L03.116 Cellulitis of left lower limb; B35.3 Tinea pedis; D64.81 Anemia due to antineoplastic chemotherapy; D70.1 Agranulocytosis secondary to cancer chemotherapy; T45.1X5A Adverse effect of antineoplastic and immunosuppressive drugs, initial encounter; E10.22 Type 1 diabetes mellitus with diabetic chronic kidney disease; F17.210 Nicotine dependence, cigarettes, uncomplicated; N18.9 Chronic kidney disease, unspecified; Z79.4 Long term (current) use of insulin; E78.5 Hyperlipidemia, unspecified; F32.9 Major depressive disorder, single episode, unspecified; I25.10 Atherosclerotic heart disease of native coronary artery without angina pectoris; I08.0 Rheumatic disorders of both mitral and aortic valves; I48.91 Unspecified atrial fibrillation; J43.9 Emphysema, unspecified; N42.9 Disorder of prostate, unspecified; Z79.899 Other long term (current) drug therapy; Z80.6 Family history of leukemia; Z82.49 Family history of ischemic heart disease and other diseases of the circulatory system; Z95.1 Presence of aortocoronary bypass graft; Z95.5 Presence of coronary angioplasty implant and graft; Z88.1 Allergy status to other antibiotic agents; Z88.8 Allergy status to other drugs, medicaments and biological substances; Z83.2 Family history of diseases of the blood and blood-forming organs and certain disorders involving the immune mechanism; R33.9 Retention of urine, unspecified
CPT/HCPCS: 36415; 71045; 71275; 80048; 80053; 80202; 81003; 82550; 82553; 83036; 83605; 83880; 84132; 84484; 85025; 85610; 85730; 86301; 86850; 86900; 86901; 86920; 87040; 87324; 87502; 93005; 93306; 94640; 94760; 96361; 96365; 99285

== ENCOUNTER 2018-05-17 22:01 | Emergency (ER) | payer MEDICARE, OTHER ==
[2018-05-17 22:10] VITALS: TEMP 97.8
[2018-05-17] MEDS ORDERED: ONDANSETRON 4 MG/2 ML VIAL IVP STA (22:47)
[2018-05-17] MEDS ORDERED: SODIUM CHLORIDE 0.9% 500 ML 500 ML IV STA (22:47)
[2018-05-17] MEDS ORDERED: HYDROmorphone 1 MG/ML 1 ML SYRINGE IVP STA (22:47)
[2018-05-17 23:59] LABS: Anisocytosis Moderate; Basophils % (A) 0 %; Eosinophils # (A) 0.1 k/uL (0-0.7); Eosinophils % (A) 1 %; HCT 30.2 % (39.0-53.0); HGB 9.5 gm/dL (13.0-17.5); Hypochromasia Marked; Lymphocytes # (A) 1.1 k/uL (1.0-4.8); Lymphocytes % (A) 13 %; MCH 23.5 pg (25.0-35.0); MCHC 31.6 g/dL (31.0-37.0); MCV 74.6 fL (80.0-100.0); Microcytosis Marked; Monocytes # (A) 0.7 k/uL (0-1.0); Monocytes % (A) 8 %; Neutrophils # (A) 6.5 k/uL (1.3-7.7); Neutrophils % (A) 74 %; Poikilocytosis Moderate; RBC 4.05 m/uL (4.30-5.90); WBC 8.8 k/uL (3.8-10.6)
[2018-05-18] LABS: Platelet Count 439 k/uL (150-450)
[2018-05-18 00:01] LABS: ALT 28 U/L (21-72); AST 23 U/L (17-59); Albumin 2.6 g/dL (3.5-5.0); Alkaline Phosphatase 168 U/L (38-126); Amylase 193 U/L (30-110); Anion Gap 7 mmol/L; Blood Urea Nitrogen 10 mg/dL (9-20); Calcium 8.7 mg/dL (8.4-10.2); Carbon Dioxide 24 mmol/L (22-30); Chloride 107 mmol/L (98-107); Glucose 114 mg/dL (74-99); Lipase 1800 U/L (23-300); Potassium 3.5 mmol/L (3.5-5.1); Sodium 138 mmol/L (137-145); Total Bilirubin 0.5 mg/dL (0.2-1.3); Total Protein 5.8 g/dL (6.3-8.2)
--- NOTE | 2018-05-18 00:53 | CT ---
EXAMINATION TYPE: CT abdomen pelvis w con DATE OF EXAM: 05/18/2018 COMPARISON: None HISTORY: abd pain CT DLP: 1310 mGycm Automated exposure control for dose reduction was used. TECHNIQUE: Helical acquisition of images was performed from the lung bases through the pelvis. CONTRAST: Performed without Oral Contrast and with IV Contrast, patient injected with 100 mL of Isovue 300. FINDINGS: Lung bases are clear of consolidation. There is no pleural effusion. Heart size is normal. There is n o pericardial effusion. Stomach appears normal. There are clips from cholecystectomy. There is air in the biliary tree. There is biliary stent noted in the common bile duct and into the duodenum. There are multiple variable-sized hypodense areas in the liver. These measure up to 3.6 cm. The spleen is l arge and measures 16.5 cm. There is a 8.8 cm greatest dimension low-density mass in the head of the p ancreas. Margins are irregular. This appears multicentric with cystic areas. There is mild ectasia of the pancreatic duct. This is consistent with partial obstruction. I see no free air. There are multiple distended loops of fluid-filled small bowel. Small bowel measur es up to 3.9 cm. There is no ascites. Bladder has irregular wall thickening. There is prostatic calci fication. There is no inguinal hernia. I see no free fluid in the pelvis. The appendix appears normal . There is no mesenteric adenopathy or edema. I do not see a transition point of the small bowel. The lumbar spine is intact. Bony pelvis is intact. There is mild degenerative spurring in the lumbar spi ne. There is mild aneurysm of the lower abdominal aorta that measures 3.3 cm. There is diffuse athero sclerotic vascular calcification. There is no adrenal mass. Kidneys show satisfactory contrast opacification. There is no hydronephrosi s. Ureters are not dilated. There are bilateral renal cortical cysts that measure up to 4.5 cm. IMPRESSION: LARGE PANCREATIC MASS CONSISTENT WITH TUMOR. Biliary stent appears to be in good position. No bile duct obstruction. Splenomegaly. Numerous hepatic low density variable sized lesions consistent with metastatic disease. Mildly dilated proximal small bowel consistent with ileus. Atherosclerotic vascular disease. Mild uri nary bladder wall thickening suggestive of nonspecific cystitis.
[2018-05-18 01:47] LABS: Appearance,Urine Turbid (Clear); Bacteria,Urine Occasional /hpf; Bilirubin,Urine Negative (Negative); Blood,Urine Negative (Negative); Color,Urine Yellow; Glucose,Urine (UA) Negative (Negative); Ketones,Urine Negative (Negative); Leukocyte Esterase,Urine Trace (Negative); Mucus,Urine Many /hpf; Nitrite,Urine Negative (Negative); Protein,Urine 2+ (Negative); RBC,Urine 34 /hpf (0-5); Specific Gravity,Urine 1.027 (1.001-1.035); Squamous Epithelial Cell,Urine 8 /hpf (0-4); WBC,Urine 37 /hpf (0-5)
[2018-05-18 01:54] VITALS: BP 135/69; PULSE 62; RESP 16
--- NOTE | 2018-05-18 02:20 | ED ---
General Adult HPI - General Chief complaint: Nausea/Vomiting/Diarrhea Stated complaint: Diarrhea Time Seen by Provider: 05/17/18 22:13 Source: patient, RN notes reviewed Mode of arrival: ambulatory Limitations: no limitations - History of Present Illness Initial comments: 67-year-old male with a past medical history of pancreatic cancer, CHF, COPD, hypertension presents to the emergency department for a chief complaint of diarrhea 2 weeks. Patient states he has been having diarrhea about 10 times per day. He states this started while he was admitted to the hospital for bilateral lower extremity cellulitis. He states he has had a negative c diff test recently. He is currently taking Imodium for this which she was prescribed when he was in the hospital. He states he is able to drink fluids but is eating somewhat less than normal. Patient states he is nauseous but has not vomited. He denies fevers or chills. He denies any significant abdominal pain. He denies any recent travel.Patient has no other complaints at this time including shortness of breath, chest pain, abdominal pain,headache, or visual changes. - Related Data Home Medications Medication Instructions Recorded Confirmed Albuterol Inhaler [Ventolin Hfa 1 puff INHALATION RT-Q4H PRN 05/02/18 05/17/18 Inhaler] Atorvastatin [Lipitor] 80 mg PO HS 05/02/18 05/17/18 Cholecalciferol [Vitamin D3] 800 unit PO DAILY 05/02/18 05/17/18 Cyanocobalamin (Vitamin B-12) 1,000 mcg PO DAILY 05/02/18 05/17/18 [Vitamin B-12] Ferrous Sulfate [Feosol] 325 mg PO DAILY 05/02/18 05/17/18 Finasteride [Proscar] 5 mg PO DAILY 05/02/18 05/17/18 Furosemide [Lasix] 40 mg PO TID 05/02/18 05/17/18 Gabapentin [Neurontin] 400 mg PO TID 05/02/18 05/17/18 HYDROcodone/APAP 10-325MG [[place] 1 tab PO Q4HR PRN 05/02/18 05/17/18 10-325] Insulin Glargine [Lantus] 80 unit SQ HS 05/02/18 05/17/18 Ketoconazole 2% Cream [Nizoral 2%] 1 applic TOPICAL BID 05/02/18 05/17/18 Melatonin 3 mg PO HS PRN 05/02/18 05/17/18 Morphine Sulfate ER [Ms Contin] 30 mg PO Q6HR PRN 05/02/18 05/17/18 Ondansetron HCl 8 mg PO Q12HR 05/02/18 05/17/18 Polyethylene Glycol 3350 [Miralax] 17 gm PO DAILY 05/02/18 05/17/18 Prochlorperazine [Compazine] 10 mg PO Q6H PRN 05/02/18 05/17/18 Sennosides [Senokot] 17.2 mg PO BID 05/02/18 05/17/18 Sucralfate [Carafate] 1 gm PO QID 05/02/18 05/17/18 Tamsulosin [Flomax] 0.4 mg PO BID 05/02/18 05/17/18 Tiotropium [place] [Spiriva 2 spray INHALATION RT-DAILY 05/02/18 05/17/18 Respimat] Previous Rx's Medication Instructions Recorded Benzocaine/Menthol Lozeng [Cepacol 1 each MUCOUS MEM Q4HR PRN lozenge 05/13/18 lozenge] Cephalexin [Keflex] 500 mg PO Q6H #40 cap 05/13/18 Lipase/Protease/Amylase [Zenpep Dr 10 each PO PC-TID #90 capsule.dr 05/13/18 5,000 Unit Capsule] Loperamide [Imodium] 2 mg PO QID PRN #0 cap 05/13/18 Metoprolol Tartrate [Lopressor] 25 mg PO BID #60 tab 05/13/18 Nicotine 21Mg/24Hr Patch [Habitrol] 1 patch TRANSDERM DAILY #30 patch 05/13/18 Nystatin 100,000 Unit/gm Powd 1 applic TOPICAL BID applic 05/13/18 [Mycostatin Powder] Nystatin 100,000 Unit/ml Susp 500,000 unit PO Q6H #40 cup 05/13/18 [Mycostatin Oral Susp] Ondansetron [Zofran ODT] 4 mg PO Q8HR PRN #15 tab 05/18/18 Allergies Allergy/AdvReac Type Severity Reaction Status Date / Time fluticasone Allergy Unknown Verified 05/17/18 22:38 roflumilast Allergy Unknown Verified 05/17/18 22:38 saxagliptin Allergy Unknown Verified 05/17/18 22:38 terazosin Allergy low blood Verified 05/17/18 22:38 pressure Review of Systems ROS Statement: Those systems with pertinent positive or pertinent negative responses have been documented in the HPI. ROS Other: All systems not noted in ROS Statement are negative. Past Medical History Past Medical History: COPD, Diabetes Mellitus, Hypertension, Prostate Disorder, Vascular Disorder Additional Past Medical History / Comment(s): cx. CHFemphysema, anemia, Stage 4 pancreatic cancer dx feb 2018, blister/yeast on scrotum, constipation, freq diarrhea with chemo, Triple A, edema to lower extremities History of Any Multi-Drug Resistant Organisms: None Reported Past Surgical History: Cholecystectomy, Coronary Bypass/CABG, Heart Catheterization With Stent Additional Past Surgical History / Comment(s): triple bipass 4 stents . carotid artery, Past Anesthesia/Blood Transfusion Reactions: Blood Transfusion Reaction Additional Past Anesthesia/Blood Transfusion Reaction / Comment(s): 4 days after fever Date of Last Stent Placement:: 2003 Past Psychological History: Depression Smoking Status: Current every day smoker Past Alcohol Use History: None Reported Past Drug Use History: None Reported - Past Family History Father Family Medical History: Myocardial Infarction ([place]) Mother Additional Family Medical History / Comment(s): blood clotting disease, triple bypass Brother(s) Additional Family Medical History / Comment(s): leukemia General Exam Limitations: no limitations General appearance: alert, in no apparent distress Head exam: Present: atraumatic, normocephalic, normal inspection Eye exam: Present: normal appearance, PERRL, EOMI. Absent: scleral icterus, conjunctival injection, periorbital swelling ENT exam: Present: normal exam, mucous membranes moist Neck exam: Present: normal inspection, full ROM. Absent: tenderness, meningismus, lymphadenopathy Respiratory exam: Present: normal lung sounds bilaterally. Absent: respiratory distress, wheezes, rales, rhonchi, stridor Cardiovascular Exam: Present: regular rate, normal rhythm, normal heart sounds. Absent: systolic murmur, diastolic murmur, rubs, gallop, clicks GI/Abdominal exam: Present: soft, tenderness (Mild tenderness of the right upper and lower quadrants without guarding), normal bowel sounds. Absent: distended, guarding, rebound, rigid Extremities exam: Present: pedal edema (4+ edema in bilat LE, states this has been chronic) Neurological exam: Present: alert, oriented X3, CN II-XII intact Psychiatric exam: Present: normal affect, normal mood Course Vital Signs 05/17/18 05/18/18 22:04 01:53 Temperature 97.8 F Pulse Rate 88 62 Respiratory 18 16 Rate Blood Pressure 138/63 135/69 O2 Sat by Pulse 97 95 Oximetry Medical Decision Making - Medical Decision Making 59-year-old male with a past medical history of a gritty cancer presents to the emergency department for a chief complaint of diarrhea 2 weeks. Patient states this has been ongoing since his last admission. Patient recently had a negative C. diff. On exam patient has mild lower abdominal tenderness. CBC is unremarkable. Hemoglobin has improved since last lab work. CMP unremarkable. Lipase is 1800. Likely due to patient's pancreatic cancer. No previous lipase here to compare at this time. Urine culture, patient does self cath. Abdomen and pelvis CT does show ileus as well as large pancreatic mass consistent with tumor. On reevaluation patient states he is feeling much better after receiving fluids and Zofran. Offered admission to patient for IV hydration and management of diarrhea the patient states he would rather go home at this time. He is currently on Imodium. He was unable to give a stool sample here but [facility] and will bring a stool sample then. He was given Zofran as this did significantly improve his nausea while in the emergency department. Patient aware to return here if he has any worsening symptoms - Lab Data Result diagrams: 05/17/18 23:12 05/17/18 23:12 Lab Results 05/17/18 05/17/18 05/18/18 Range/Units 23:12 23:12 01:16 WBC 8.8 (3.8-10.6) k/uL RBC 4.05 L (4.30-5.90) m/uL Hgb 9.5 L (13.0-17.5) gm/dL Hct 30.2 L (39.0-53.0) % MCV 74.6 L (80.0-100.0) fL MCH 23.5 L (25.0-35.0) pg MCHC 31.6 (31.0-37.0) g/dL RDW 24.0 H (11.5-15.5) % Plt Count 439 D (150-450) k/uL Neutrophils % 74 % Lymphocytes % 13 % Monocytes % 8 % Eosinophils % 1 % Basophils % 0 % Neutrophils # 6.5 (1.3-7.7) k/uL Lymphocytes # 1.1 (1.0-4.8) k/uL Monocytes # 0.7 (0-1.0) k/uL Eosinophils # 0.1 (0-0.7) k/uL Basophils # 0.0 (0-0.2) k/uL Hypochromasia Marked Poikilocytosis Moderate Anisocytosis Moderate Microcytosis Marked Sodium 138 (137-145) mmol/L Potassium 3.5 (3.5-5.1) mmol/L Chloride 107 (98-107) mmol/L Carbon Dioxide 24 (22-30) mmol/L Anion Gap 7 mmol/L BUN 10 (9-20) mg/dL Creatinine 0.65 L (0.66-1.25) mg/dL Est GFR (CKD-EPI)AfAm >90 (>60 ml/min/1.73 sqM) Est GFR (CKD-EPI)NonAf >90 (>60 ml/min/1.73 sqM) Glucose 114 H (74-99) mg/dL Calcium 8.7 (8.4-10.2) mg/dL Total Bilirubin 0.5 (0.2-1.3) mg/dL AST 23 (17-59) U/L ALT 28 (21-72) U/L Alkaline Phosphatase 168 H (38-126) U/L Total Protein 5.8 L (6.3-8.2) g/dL Albumin 2.6 L (3.5-5.0) g/dL Amylase 193 H (30-110) U/L Lipase 1800 H (23-300) U/L Urine Color Yellow Urine Appearance Turbid (Clear) Urine pH 6.0 (5.0-8.0) Ur Specific [place] 1.027 (1.001-1.035) Urine Protein 2+ H (Negative) Urine Glucose (UA) Negative (Negative) Urine Ketones Negative (Negative) Urine Blood Negative (Negative) Urine Nitrite Negative (Negative) Urine Bilirubin Negative (Negative) Urine Urobilinogen 2.0 (<2.0) mg/dL Ur Leukocyte Esterase Trace H (Negative) Urine RBC 34 H (0-5) /hpf Urine WBC 37 H (0-5) /hpf Urine WBC Clumps Moderate H (None) /hpf Ur Squamous Epith Cells 8 H (0-4) /hpf Urine Bacteria Occasional H (None) /hpf Urine Mucus Many H (None) /hpf Disposition Clinical Impression: Diarrhea Disposition: HOME SELF-CARE Condition: Good Instructions: Acute Nausea and Vomiting (ED), Acute Diarrhea (ED) Additional Instructions: Please take Zofran as needed. Follow up with primary care in 1-2 days. Return to the ED if you have any worsening symptoms. Prescriptions: Ondansetron [Zofran ODT] 4 mg PO Q8HR PRN #15 tab PRN Reason: Nausea Is patient prescribed a controlled substance at d/c from ED?: No Referrals: Joana Perales MD [Primary Care Provider] - 1-2 days Time of Disposition: 02:21
[2018-05-18] MEDS ORDERED: ONDANSETRON 4 MG ODT STARTER PACK 2 TAB BTL PO STA (02:37)
== END 2018-05-18 02:56 | disposition home or self-care (01) ==
LOC: EC 22:01
DX: R19.7 Diarrhea, unspecified (principal); R11.0 Nausea; R10.813 Right lower quadrant abdominal tenderness; R10.811 Right upper quadrant abdominal tenderness; J44.9 Chronic obstructive pulmonary disease, unspecified; E11.9 Type 2 diabetes mellitus without complications; I11.0 Hypertensive heart disease with heart failure; I50.9 Heart failure, unspecified; N42.9 Disorder of prostate, unspecified; F32.9 Major depressive disorder, single episode, unspecified; F17.200 Nicotine dependence, unspecified, uncomplicated; Z85.07 Personal history of malignant neoplasm of pancreas; Z79.4 Long term (current) use of insulin; Z79.899 Other long term (current) drug therapy; Z88.8 Allergy status to other drugs, medicaments and biological substances; Z95.5 Presence of coronary angioplasty implant and graft; Z95.1 Presence of aortocoronary bypass graft
CPT/HCPCS: 36415; 80053; 82150; 83690; 85025; 81001; 74177; 99284; 96374; 96375; J2405; J1170; S0119; Q9967

== ENCOUNTER 2018-05-20 14:26 | Observation (INO) | payer OTHER, MEDICARE ==
[2018-05-20] MEDS ORDERED: SODIUM CHLORIDE 0.9% 2,000 ML IV STA (14:42)
[2018-05-20] MEDS ORDERED: HYDROmorphone 1 MG/ML 1 ML SYRINGE IVP STA (14:42)
[2018-05-20] MEDS ORDERED: ONDANSETRON 4 MG/2 ML VIAL IVP STA (14:42)
[2018-05-20] MEDS ORDERED: DIPHENOX-ATROP 2.5-0.025 MG 1 EACH TAB PO STA (14:55)
--- NOTE | 2018-05-20 16:03 | ED ---
Nausea/Vomiting/Diarrhea HPI - General Source: patient, RN notes reviewed, old records reviewed Mode of arrival: wheelchair Limitations: no limitations <Jessee Dee - Last Filed: 05/20/18 16:03> <Bharat Hernandez - Last Filed: 05/20/18 18:04> - General Chief complaint: Nausea/Vomiting/Diarrhea Stated complaint: diarrhea Time Seen by Provider: 05/20/18 14:42 - History of Present Illness Initial comments: 67-year-old male presents emergency Department with multiple complaints. Patient's primary complaint is abdominal pain, diarrhea. Patient was seen here 2 days ago for similar complaints. Patient has known pancreatic cancer had 2 rounds of chemotherapy in April. Patient developed severe weakness after. Patient states that he has had diarrhea for 25 days multiple episodes loose watery. They told him it's most likely related to his chemotherapy and pancreatic cancer. Patient denies fever or chills. Patient went of diffuse abdominal pain in which she does have a CT which showed a pancreatic tumor. Patient's amylase and lipase were elevated he was offered admission but states he felt better and wanted to go home. Patient reports slight nausea and vomiting. Denies any headache, dizziness, dysuria, hematuria denies any melena hematochezia. (Jessee Dee) - Related Data Home Medications Medication Instructions Recorded Confirmed Albuterol Inhaler [Ventolin Hfa 1 puff INHALATION RT-Q4H PRN 05/02/18 05/20/18 Inhaler] Atorvastatin [Lipitor] 80 mg PO HS 05/02/18 05/20/18 Cholecalciferol [Vitamin D3] 800 unit PO DAILY 05/02/18 05/20/18 Cyanocobalamin (Vitamin B-12) 1,000 mcg PO DAILY 05/02/18 05/20/18 [Vitamin B-12] Ferrous Sulfate [Feosol] 325 mg PO DAILY 05/02/18 05/20/18 Finasteride [Proscar] 5 mg PO DAILY 05/02/18 05/20/18 Furosemide [Lasix] 40 mg PO TID 05/02/18 05/20/18 Gabapentin [Neurontin] 400 mg PO TID 05/02/18 05/20/18 HYDROcodone/APAP 10-325MG [[place] 1 tab PO Q4HR PRN 05/02/18 05/20/18 10-325] Insulin Glargine [Lantus] 80 unit SQ HS 05/02/18 05/20/18 Ketoconazole 2% Cream [Nizoral 2%] 1 applic TOPICAL BID 05/02/18 05/20/18 Melatonin 3 mg PO HS PRN 05/02/18 05/20/18 Morphine Sulfate ER [Ms Contin] 30 mg PO Q6HR PRN 05/02/18 05/20/18 Ondansetron HCl 8 mg PO Q12HR 05/02/18 05/20/18 Polyethylene Glycol 3350 [Miralax] 17 gm PO DAILY 05/02/18 05/20/18 Prochlorperazine [Compazine] 10 mg PO Q6H PRN 05/02/18 05/20/18 Sennosides [Senokot] 17.2 mg PO BID 05/02/18 05/20/18 Sucralfate [Carafate] 1 gm PO QID 05/02/18 05/20/18 Tamsulosin [Flomax] 0.4 mg PO BID 05/02/18 05/20/18 Tiotropium [place] [Spiriva 2 spray INHALATION RT-DAILY 05/02/18 05/20/18 Respimat] Benzocaine/Menthol Lozeng [Cepacol 1 lozenge MUCOUS MEM Q4HR PRN 05/20/18 lozenge] Previous Rx's Medication Instructions Recorded Cephalexin [Keflex] 500 mg PO Q6H #40 cap 05/13/18 Lipase/Protease/Amylase [Zenpep Dr 10 each PO PC-TID #90 capsule. 05/13/18 5,000 Unit Capsule] Loperamide [Imodium] 2 mg PO QID PRN #0 cap 05/13/18 Metoprolol Tartrate [Lopressor] 25 mg PO BID #60 tab 05/13/18 Nicotine 21Mg/24Hr Patch [Habitrol] 1 patch TRANSDERM DAILY #30 patch 05/13/18 Nystatin 100,000 Unit/gm Powd 1 applic TOPICAL BID applic 05/13/18 [Mycostatin Powder] Nystatin 100,000 Unit/ml Susp 500,000 unit PO Q6H #40 cup 05/13/18 [Mycostatin Oral Susp] Ondansetron [Zofran ODT] 4 mg PO Q8HR PRN #15 tab 05/18/18 Allergies Allergy/AdvReac Type Severity Reaction Status Date / Time fluticasone Allergy Unknown Verified 05/20/18 14:49 roflumilast Allergy Unknown Verified 05/20/18 14:49 saxagliptin Allergy Unknown Verified 05/20/18 14:49 terazosin Allergy low blood Verified 05/20/18 14:49 pressure Review of Systems ROS Other: All systems not noted in ROS Statement are negative. <Jessee Dee - Last Filed: 05/20/18 16:03> ROS Other: All systems not noted in ROS Statement are negative. <Bharat Hernandez - Last Filed: 05/20/18 18:04> ROS Statement: Those systems with pertinent positive or pertinent negative responses have been documented in the HPI. Past Medical History Past Medical History: COPD, Diabetes Mellitus, Hypertension, Prostate Disorder, Vascular Disorder Additional Past Medical History / Comment(s): cx. CHFemphysema, anemia, Stage 4 pancreatic cancer dx feb 2018, blister/yeast on scrotum, constipation, freq diarrhea with chemo, Triple A, edema to lower extremities History of Any Multi-Drug Resistant Organisms: None Reported Past Surgical History: Cholecystectomy, Coronary Bypass/CABG, Heart Catheterization With Stent Additional Past Surgical History / Comment(s): triple bipass 4 stents . carotid artery, Past Anesthesia/Blood Transfusion Reactions: Blood Transfusion Reaction Additional Past Anesthesia/Blood Transfusion Reaction / Comment(s): 4 days after fever Date of Last Stent Placement:: 2003 Past Psychological History: Depression Smoking Status: Current every day smoker Past Alcohol Use History: None Reported Past Drug Use History: None Reported - Past Family History Father Family Medical History: Myocardial Infarction ([place]) Mother Additional Family Medical History / Comment(s): blood clotting disease, triple bypass Brother(s) Additional Family Medical History / Comment(s): leukemia <Jessee Dee - Last Filed: 05/20/18 16:03> General Exam Limitations: no limitations General appearance: alert, in no apparent distress Head exam: Present: atraumatic, normocephalic, normal inspection Eye exam: Present: normal appearance, PERRL, EOMI. Absent: scleral icterus, conjunctival injection, periorbital swelling ENT exam: Present: normal exam, mucous membranes moist Neck exam: Present: normal inspection. Absent: tenderness, meningismus, lymphadenopathy Respiratory exam: Present: normal lung sounds bilaterally. Absent: respiratory distress, wheezes, rales, rhonchi, stridor Cardiovascular Exam: Present: regular rate, normal rhythm, normal heart sounds. Absent: systolic murmur, diastolic murmur, rubs, gallop, clicks GI/Abdominal exam: Present: soft, tenderness (Moderate diffuse), normal bowel sounds. Absent: distended, guarding, rebound, rigid Back exam: Absent: CVA tenderness (R), CVA tenderness (L) Neurological exam: Present: alert, oriented X3, CN II-XII intact <Jessee Dee - Last Filed: 05/20/18 16:03> Vital Signs 05/20/18 14:27 Temperature 98.6 F Pulse Rate 94 Respiratory 18 Rate Blood Pressure 135/76 O2 Sat by Pulse 98 Oximetry Medical Decision Making <Jessee Dee - Last Filed: 05/20/18 16:03> - Lab Data Result diagrams: 05/20/18 17:00 05/20/18 15:50 <Bharat Hernandez - Last Filed: 05/20/18 18:04> - Medical Decision Making 67-year-old male presented for diarrhea abdominal pain. Patient has a history of pain. Cancer. Patient was noted to have lipase of [address] consistent with pancreatic mass on last visit 2 days ago. Patient is having intractable abdominal pain and diarrhea. Patient is also had found to have anemia. Patient will be admitted for IV hydration, pain control and further evaluation. (Jessee Dee) 59 male the ER for evaluation presented for abdominal pain with cancer, patient doesn't pain her last known, patient with intractable nausea vomiting for about a month now. Patient does have discharged from hospital, coming in for further evaluation and admission secondary to need for hydration (Bharat Hernandez) - Lab Data Lab Results 05/20/18 05/20/18 05/20/18 Range/Units 15:21 15:50 17:00 WBC (3.8-10.6) k/uL RBC (4.30-5.90) m/uL Hgb (13.0-17.5) gm/dL Hct (39.0-53.0) % MCV (80.0-100.0) fL MCH (25.0-35.0) pg MCHC (31.0-37.0) g/dL RDW (11.5-15.5) % Plt Count (150-450) k/uL Neutrophils % % Lymphocytes % % Monocytes % % Eosinophils % % Basophils % % Neutrophils # (1.3-7.7) k/uL Lymphocytes # (1.0-4.8) k/uL Monocytes # (0-1.0) k/uL Eosinophils # (0-0.7) k/uL Basophils # (0-0.2) k/uL Hypochromasia Poikilocytosis Anisocytosis Microcytosis PT (9.0-12.0) sec INR (<1.2) APTT (22.0-30.0) sec Sodium 138 (137-145) mmol/L Potassium 3.8 (3.5-5.1) mmol/L Chloride 105 (98-107) mmol/L Carbon Dioxide 25 (22-30) mmol/L Anion Gap 8 mmol/L BUN 9 (9-20) mg/dL Creatinine 0.60 L (0.66-1.25) mg/dL Est GFR (CKD-EPI)AfAm >90 (>60 ml/min/1.73 sqM) Est GFR (CKD-EPI)NonAf >90 (>60 ml/min/1.73 sqM) Glucose 120 H (74-99) mg/dL Plasma Lactic Acid [place] 1.2 (0.7-2.0) mmol/L Calcium 9.0 (8.4-10.2) mg/dL Magnesium 1.8 (1.6-2.3) mg/dL Total Bilirubin 0.7 (0.2-1.3) mg/dL AST 21 (17-59) U/L ALT 32 (21-72) U/L Alkaline Phosphatase 165 H (38-126) U/L Total Protein 6.3 (6.3-8.2) g/dL Albumin 2.9 L (3.5-5.0) g/dL Amylase 106 (30-110) U/L Lipase 684 H (23-300) U/L Urine Color Urine Appearance (Clear) Urine pH (5.0-8.0) Ur Specific [place] (1.001-1.035) Urine Protein (Negative) Urine Glucose (UA) (Negative) Urine Ketones (Negative) Urine Blood (Negative) Urine Nitrite (Negative) Urine Bilirubin (Negative) Urine Urobilinogen (<2.0) mg/dL Ur Leukocyte Esterase (Negative) Urine RBC (0-5) /hpf Urine WBC (0-5) /hpf Ur Squamous Epith Cells (0-4) /hpf Urine Mucus (None) /hpf C. difficile (EIA) Intrp Negative (Negative) 05/20/18 05/20/18 05/20/18 Range/Units 17:00 17:00 17:00 WBC 13.4 H (3.8-10.6) k/uL RBC 3.98 L (4.30-5.90) m/uL Hgb 9.4 L (13.0-17.5) gm/dL Hct 30.3 L (39.0-53.0) % MCV 76.1 L (80.0-100.0) fL MCH 23.6 L (25.0-35.0) pg MCHC 31.0 (31.0-37.0) g/dL RDW 24.2 H (11.5-15.5) % Plt Count 443 (150-450) k/uL Neutrophils % 86 % Lymphocytes % 6 % Monocytes % 5 % Eosinophils % 0 % Basophils % 0 % Neutrophils # 11.5 H (1.3-7.7) k/uL Lymphocytes # 0.9 L (1.0-4.8) k/uL Monocytes # 0.6 (0-1.0) k/uL Eosinophils # 0.0 (0-0.7) k/uL Basophils # 0.0 (0-0.2) k/uL Hypochromasia Marked Poikilocytosis Slight Anisocytosis Marked Microcytosis Marked PT 12.5 H (9.0-12.0) sec INR 1.3 H (<1.2) APTT 26.6 (22.0-30.0) sec Sodium (137-145) mmol/L Potassium (3.5-5.1) mmol/L Chloride (98-107) mmol/L Carbon Dioxide (22-30) mmol/L Anion Gap mmol/L BUN (9-20) mg/dL Creatinine (0.66-1.25) mg/dL Est GFR (CKD-EPI)AfAm (>60 ml/min/1.73 sqM) Est GFR (CKD-EPI)NonAf (>60 ml/min/1.73 sqM) Glucose (74-99) mg/dL Plasma Lactic Acid [place]uy (0.7-2.0) mmol/L Calcium (8.4-10.2) mg/dL Magnesium (1.6-2.3) mg/dL Total Bilirubin (0.2-1.3) mg/dL AST (17-59) U/L ALT (21-72) U/L Alkaline Phosphatase (38-126) U/L Total Protein (6.3-8.2) g/dL Albumin (3.5-5.0) g/dL Amylase (30-110) U/L Lipase (23-300) U/L Urine Color Yellow Urine Appearance Cloudy (Clear) Urine pH 6.0 (5.0-8.0) Ur Specific [place] 1.022 (1.001-1.035) Urine Protein 2+ H (Negative) Urine Glucose (UA) Negative (Negative) Urine Ketones Negative (Negative) Urine Blood Negative (Negative) Urine Nitrite Negative (Negative) Urine Bilirubin Negative (Negative) Urine Urobilinogen 2.0 (<2.0) mg/dL Ur Leukocyte Esterase Small H (Negative) Urine RBC 2 (0-5) /hpf Urine WBC 16 H (0-5) /hpf Ur Squamous Epith Cells 1 (0-4) /hpf Urine Mucus Many H (None) /hpf C. difficile (EIA) Intrp (Negative) Disposition <Jessee Dee - Last Filed: 05/20/18 16:03> Is patient prescribed a controlled substance at d/c from ED?: No <Bharat Hernandez - Last Filed: 05/20/18 18:04> Clinical Impression: Weakness, Diarrhea, Pancreatic cancer, Intractable abdominal pain, Dehydration , Anemia Disposition: ADMITTED IP TO THIS HOSP Condition: Fair Referrals: Joana Perales MD [Primary Care Provider] - 1-2 days
[2018-05-20 16:07] LABS: ALT 32 U/L (21-72); AST 21 U/L (17-59); Albumin 2.9 g/dL (3.5-5.0); Alkaline Phosphatase 165 U/L (38-126); Amylase 106 U/L (30-110); Anion Gap 8 mmol/L; Blood Urea Nitrogen 9 mg/dL (9-20); Carbon Dioxide 25 mmol/L (22-30); Chloride 105 mmol/L (98-107); Glucose 120 mg/dL (74-99); Lipase 684 U/L (23-300); Magnesium 1.8 mg/dL (1.6-2.3); Potassium 3.8 mmol/L (3.5-5.1); Sodium 138 mmol/L (137-145); Total Bilirubin 0.7 mg/dL (0.2-1.3); Total Protein 6.3 g/dL (6.3-8.2)
--- NOTE | 2018-05-20 16:52 | XR ---
EXAMINATION TYPE: XR chest 2V DATE OF EXAM: 05/20/2018 COMPARISON: 05/02/2018 HISTORY: Weakness. Diarrhea. TECHNIQUE: Frontal and lateral views of the chest are obtained. FINDINGS: There is no heart failure nor confluent pneumonic infiltrate. Costophrenic angles are merry r. There is right central venous catheter with the tip in the superior vena cava. There are sternal w ires. Bony thorax is intact. There is minimal linear density at the left lung base. IMPRESSION: Minimal subsegmental atelectasis left lung base.. Normal heart. No adverse change compar ed to old exam. There is clearing of interstitial density in the lower lobes compared to old exam.
[2018-05-20 17:20] LABS: Anisocytosis Marked; Basophils % (A) 0 %; Eosinophils % (A) 0 %; HCT 30.3 % (39.0-53.0); HGB 9.4 gm/dL (13.0-17.5); Hypochromasia Marked; Lymphocytes # (A) 0.9 k/uL (1.0-4.8); Lymphocytes % (A) 6 %; MCH 23.6 pg (25.0-35.0); MCV 76.1 fL (80.0-100.0); Mean Platelet Volume 6.7; Microcytosis Marked; Monocytes # (A) 0.6 k/uL (0-1.0); Monocytes % (A) 5 %; Neutrophils # (A) 11.5 k/uL (1.3-7.7); Neutrophils % (A) 86 %; Platelet Count 443 k/uL (150-450); Poikilocytosis Slight; RBC 3.98 m/uL (4.30-5.90); RDW 24.2 % (11.5-15.5); WBC 13.4 k/uL (3.8-10.6)
[2018-05-20 17:25] LABS: Appearance,Urine Cloudy (Clear); Bilirubin,Urine Negative (Negative); Blood,Urine Negative (Negative); Color,Urine Yellow; Glucose,Urine (UA) Negative (Negative); Ketones,Urine Negative (Negative); Leukocyte Esterase,Urine Small (Negative); Mucus,Urine Many /hpf; Nitrite,Urine Negative (Negative); Protein,Urine 2+ (Negative); RBC,Urine 2 /hpf (0-5); Specific Gravity,Urine 1.022 (1.001-1.035); Squamous Epithelial Cell,Urine 1 /hpf (0-4); WBC,Urine 16 /hpf (0-5)
[2018-05-20 17:32] LABS: INR 1.3 (<1.2); Partial Thromboplastin Time 26.6 sec (22.0-30.0); Prothrombin Time 12.5 sec (9.0-12.0)
[2018-05-20] MEDS ORDERED: LOPERAMIDE 2 MG CAP PO PRN (18:01)
[2018-05-20] MEDS ORDERED: ALBUTEROL NEBULIZED 2.5 MG/3 ML INHALATION PRN (18:01)
[2018-05-20] MEDS ORDERED: PROCHLORPERAZINE 10 MG TAB PO PRN (18:01)
[2018-05-20] MEDS ORDERED: SODIUM CHLORIDE 0.9% 1,000 ML IV ONE (18:01)
[2018-05-20] MEDS ORDERED: MORPHINE SULFATE 4 MG/ML SYRINGE IVP PRN (18:01)
[2018-05-20] MEDS ORDERED: MORPHINE SULFATE ER 30 MG TABLET PO PRN (18:01)
[2018-05-20] MEDS ORDERED: MELATONIN 3 MG TABLET PO PRN (18:01)
[2018-05-20] MEDS ORDERED: BENZOCAINE/MENTHOL LOZENG 1 EACH LOZENGE MUCOUS MEM PRN (18:01)
[2018-05-20] MEDS ORDERED: MORPHINE SULFATE 4 MG/ML SYRINGE IVP STA (18:01)
[2018-05-20] MEDS ORDERED: DICYCLOMINE 10 MG/ML 2 ML AMP IM STA (18:01)
[2018-05-20] MEDS ORDERED: ONDANSETRON 4 MG/2 ML VIAL IVP PRN (18:01)
[2018-05-20] MEDS ORDERED: TEMAZEPAM 15 MG CAP PO PRN (18:05)
[2018-05-20] MEDS: SODIUM CHLORIDE 0.9% 1,000 ML IV SCH (18:14)
[2018-05-20 19:35] LABS: Amylase 83 U/L (30-110); Lipase 594 U/L (23-300)
[2018-05-20] MEDS ORDERED: INSULIN DETEMIR 100 UNIT/ML 10 ML VIAL SQ SCH (21:00)
[2018-05-20] MEDS ORDERED: ATORVASTATIN 80 MG TAB PO SCH (21:00)
[2018-05-20] MEDS: FUROSEMIDE 40 MG TAB PO SCH (22:01)
[2018-05-20] MEDS: GABAPENTIN 400 MG CAP PO SCH (22:01)
[2018-05-20] MEDS: NYSTATIN 100,000 UNIT/ML SUSP 500,000 UNIT/5 ML CUP PO SCH (22:02)
[2018-05-20] MEDS: CLOTRIMAZOLE 1% CREAM 15 GM TUBE TOPICAL SCH (22:02)
[2018-05-20] MEDS: INSULIN ASPART 100 UNIT/ML 1 ML 10 ML VIAL SQ SCH (22:03)
[2018-05-20] MEDS: NYSTATIN 100,000 UNIT/GM POWD 15 GM TOPICAL SCH (22:04)
[2018-05-20] MEDS: METOPROLOL TARTRATE 25 MG TAB PO SCH (22:04)
[2018-05-20] MEDS: NICOTINE 21MG/24HR PATCH TRANSDERM SCH (22:05)
[2018-05-20] MEDS: MORPHINE SULFATE ER 30 MG TABLET PO SCH (22:17)
[2018-05-20] MEDS: LIPASE 5,000/PROTEASE 17,000/AMYLASE 24,000 PO SCH (22:17)
[2018-05-20] MEDS: ONDANSETRON 4 MG TAB PO SCH (22:23)
[2018-05-20] MEDS: TAMSULOSIN 0.4 MG CAP.ER.24H PO SCH (22:26)
[2018-05-20] MEDS: SENNOSIDES 8.6 MG TAB PO SCH (22:26)
[2018-05-20] MEDS: SUCRALFATE 1 GM TAB PO SCH (22:27)
--- NOTE | 2018-05-20 22:47 | HP ---
HISTORY AND PHYSICAL CHIEF COMPLAINT: Nausea and vomiting, diarrhea and dizziness, weakness. HISTORY OF PRESENT ILLNESS: This 67-year-old gentleman with a past medical history of multiple medical problems including metastatic pancreatic cancer, bicytopenia, also recently admitted with bilateral leg cellulitis. The patient was given antibiotics. Patient also has had significant diarrhea for the last 25 days on and off and because of increasing difficulty, the patient came to [facility] and was admitted for further evaluation and treatment. Patient also complains of abdominal pain also. There is no history of fever, rigors or chills. No history of headache, loss of consciousness or seizures. Abdominal and pelvis CAT scan was done on 05/18/2018 which showed large pancreatic mass consistent with tumor and biliary stents in good position. Numerous hepatic low-density lesions and mildly lighted proximal small bowel, also. There is no history of fever, rigors. No headache, loss of consciousness, seizures at this time. PAST MEDICAL HISTORY: History of pancreatic cancer, COPD, diabetes, hypertension, DJD, history of CAD , CABG, stent. MEDICATIONS: Prior to admission include home medications are: 1. Spiriva 2 puffs daily. 2. Flomax 0.4 b.i.d. 3. Carafate 1 g p.o. daily. 4. Senokot 17.2 b.i.d. 5. Compazine 10 mg q.6h p.r.n. 6. MiraLAX 17 g daily. 7. Zofran 4 mg q.8h p.r.n. 8 mg b.i.d. 8. Mycostatin 500,000 p.o. q.6h. 9. Mycostatin powder. 10.Habitrol daily. 11.MS Contin 30 mg q.6 hours. 12.Lopressor 25 mg b.i.d. 13.Melatonin 3 mg q.h.s. 14.Imodium 2 mg q.i.d. p.r.n. 15.Zenpep 10 mg t.i.d. 16.Nizoral topically b.i.d. 17.Lantus 80 units subcu q.h.s. 18.[place] 10 mg q.4h p.r.n. 19.Neurontin 400 mg p.o. t.i.d. 20.Lasix 40 mg t.i.d. 21.Proscar 5 mg p.o. daily. 22.Iron sulfate 320 mg p.o. daily. 23.Vitamin B 2000 mg. daily. 24.Vitamin D3 800 units daily. 25.Keflex 500 mg q.6h p.r.n. 26.Cepacol q.4h p.r.n. 27.Lipitor 80 mg q.h.s. 28.Ventolin HFA 1 puff q.4h p.r.n. ALLERGIES: FLUTICASONE [QAMARKER], SAXAGLIPTIN AND TERAZOSIN. FAMILY HISTORY: History of myocardial infarction, blood clot bypass. SOCIAL HISTORY: History of smoking on a regular basis. No history of alcohol intake. REVIEW OF SYSTEMS: ENT: No diminished hearing or vision. CARDIOVASCULAR: No angina or palpitations. RESPIRATORY: As mentioned earlier. GI: No nausea or vomiting. : No dysuria. Central nervous system: No numbness or weakness. Allergy/Immunology: No asthma or hayfever. MUSCULOSKELETAL: As mentioned earlier. Hematology/Oncology: No history of anemia. ENDOCRINE: As mentioned earlier. CONSTITUTIONAL: As mentioned earlier. Dermatology: Negative. Rheumatology: Negative. Psychiatry: As mentioned earlier. PHYSICAL EXAMINATION: Alert and oriented times three. Pulse is 94, blood pressure 130/76, respiration 18, temperature 98.2, pulse ox 98% on room air. HEENT: Conjunctivae normal. Oral mucosa dry. NECK: No jugular venous distention. No carotid bruit. No lymph node enlargement. Cardiovascular system: S1, S2. RESPIRATORY: Breath sounds diminished in the bases. A few scattered rhonchi. No crackles. ABDOMEN: Soft, mild diffuse distention. Leg edema. Nervous system: Diffusely weak. SKIN: As mentioned. JOINT: No active deforming arthropathy. LAB STUDIES: WBC 13.2, hemoglobin 9.4, INR 1.3 otherwise, lipase is 684. UA noted. ASSESSMENT: 1. Nausea, vomiting, diarrhea, rule out acute C difficile colitis, possibly viral gastroenteritis or related to chemotherapy or pancreatic cancer with pancreatic insufficiency. 2. Increased WBC. 3. Possible urinary tract infection. 4. Anemia microcytic anemia. 5. Increased lipase with normal amylase. 6. History of pancreatic cancer on chemotherapy. 7. History of chronic obstructive pulmonary disease. 8. Diabetes type 2. 9. Hypertension. 10.History of prostate disorder. 11.History of congestive heart failure. 12.History of constipation. 13.History of recent leg cellulitis. 14.History of coronary artery disease, coronary artery bypass grafting, stent. 15.History of depression. 16.History of nicotine dependence. RECOMMENDATIONS AND DISCUSSION: In this 67-year-old gentleman who presented with multiple complex medical issues , we will monitor the patient closely, continue the current medications, management and symptomatic treatment. We will initiate IV fluids. Otherwise, I would also recommend check for C difficile. Symptomatic treatment. Otherwise, I would also recommend Dr. Gonsales, consult Dr. Gonsales. Recent CT scan has been noted. Prognosis extremely guarded because of multiple complex medical issues. I would also recommend Gastroenterology consultation as well. Further recommendations to follow. Zenpep may be considered. Prognosis guarded because of multiple complex medical issues. Further recommendations to follow. See orders for details. Discussed with the family at length. SACHA / ROLAND: [id number] / LEANDRA
[2018-05-21] MEDS: NYSTATIN 100,000 UNIT/ML SUSP 500,000 UNIT/5 ML CUP PO SCH ×3 (00:14→13:45)
[2018-05-21] MEDS: HYDROcodone/APAP 10-325MG 1 EACH TAB PO PRN ×2 (04:21→08:41)
[2018-05-21 05:39] VITALS: BP 172/74; RESP 16; TEMP 98.1
[2018-05-21] MEDS: IPRATROPIUM 0.5 MG/2.5 ML NEBU INHALATION SCH ×2 (07:18→10:46)
[2018-05-21 07:47] LABS: Glucose,Whole Blood 95 mg/dL (75-99)
[2018-05-21 08:18] LABS: Anion Gap 5 mmol/L; Blood Urea Nitrogen 7 mg/dL (9-20); Calcium 8.6 mg/dL (8.4-10.2); Carbon Dioxide 24 mmol/L (22-30); Chloride 110 mmol/L (98-107); Glucose 92 mg/dL (74-99); Potassium 3.7 mmol/L (3.5-5.1); Sodium 139 mmol/L (137-145)
[2018-05-21] MEDS: INSULIN ASPART 100 UNIT/ML 1 ML 10 ML VIAL SQ SCH ×2 (08:27→12:09)
[2018-05-21 08:30] LABS: Anisocytosis Marked; Basophils % (A) 0 %; Eosinophils % (A) 0 %; HCT 33.1 % (39.0-53.0); HGB 10.3 gm/dL (13.0-17.5); Hypochromasia Marked; Lymphocytes # (A) 1.1 k/uL (1.0-4.8); Lymphocytes % (A) 13 %; MCHC 31.2 g/dL (31.0-37.0); MCV 76.9 fL (80.0-100.0); Mean Platelet Volume 7.3; Microcytosis Marked; Monocytes # (A) 0.6 k/uL (0-1.0); Monocytes % (A) 7 %; Neutrophils # (A) 6.4 k/uL (1.3-7.7); Neutrophils % (A) 77 %; Platelet Count 427 k/uL (150-450); Poikilocytosis Slight; RBC 4.31 m/uL (4.30-5.90); RDW 24.3 % (11.5-15.5); WBC 8.4 k/uL (3.8-10.6)
[2018-05-21] MEDS: SUCRALFATE 1 GM TAB PO SCH ×2 (08:37→13:45)
[2018-05-21] MEDS: SENNOSIDES 8.6 MG TAB PO SCH (08:38)
[2018-05-21] MEDS: TAMSULOSIN 0.4 MG CAP.ER.24H PO SCH (08:39)
[2018-05-21] MEDS: METOPROLOL TARTRATE 25 MG TAB PO SCH (08:39)
[2018-05-21] MEDS: ONDANSETRON 4 MG TAB PO SCH (08:39)
[2018-05-21] MEDS: FUROSEMIDE 40 MG TAB PO SCH (08:40)
[2018-05-21] MEDS: CLOTRIMAZOLE 1% CREAM 15 GM TUBE TOPICAL SCH (08:40)
[2018-05-21] MEDS: LIPASE 5,000/PROTEASE 17,000/AMYLASE 24,000 PO SCH ×2 (08:40→13:45)
[2018-05-21] MEDS: NYSTATIN 100,000 UNIT/GM POWD 15 GM TOPICAL SCH (08:40)
[2018-05-21] MEDS: GABAPENTIN 400 MG CAP PO SCH (08:40)
[2018-05-21] MEDS: NICOTINE 21MG/24HR PATCH TRANSDERM SCH (08:40)
[2018-05-21] MEDS: MORPHINE SULFATE ER 30 MG TABLET PO SCH (08:42)
[2018-05-21] MEDS: SODIUM CHLORIDE 0.9% 1,000 ML IV SCH (08:42)
[2018-05-21 08:50] LABS: Hemoglobin A1C 7.1 % (4.0-6.0)
[2018-05-21 08:59] LABS: Polychromasia Present
[2018-05-21] MEDS ORDERED: FINASTERIDE 5 MG TAB PO SCH (09:00)
[2018-05-21] MEDS ORDERED: CHOLECALCIFEROL 400 UNIT TAB PO SCH (09:00)
[2018-05-21] MEDS ORDERED: PANTOPRAZOLE 40 MG/10 ML VIAL IVP SCH (09:00)
[2018-05-21] MEDS ORDERED: ENOXAPARIN 40 MG/0.4 ML SYRINGE SQ SCH (09:00)
[2018-05-21] MEDS ORDERED: FERROUS SULFATE 325 MG TAB PO SCH (09:00)
[2018-05-21] MEDS ORDERED: CYANOCOBALAMIN 500 MCG TAB PO SCH (09:00)
[2018-05-21 10:57] VITALS: PULSE 72
[2018-05-21 11:06] VITALS: BMI 33.3
[2018-05-21 11:49] LABS: Glucose,Whole Blood 102 mg/dL (75-99)
--- NOTE | 2018-05-21 12:00 | DS ---
DISCHARGE SUMMARY DATE OF SERVICE: 05/21/2018 FINAL DIAGNOSES: 1. Nausea, vomiting, diarrhea possible antibiotic associated or secondary to chemotherapy or malabsorption related. 2. History of pancreatic cancer on chemotherapy. 3. Possible pancreatic insufficiency. 4. Increased WBC. 5. History of urinary tract infection. 6. Anemia, microcytic anemia. 7. Increased lipase within a normal amylase. 8. History of pancreatic cancer on chemotherapy. 9. History of chronic obstructive pulmonary disease. 10.Diabetes mellitus type 2. 11.Hypertension. 12.History of prostate disorder. 13.History of congestive heart failure. 14.History of constipation. 15.History of recent left leg cellulitis. 16.History of coronary artery disease, coronary artery bypass grafting, stent. 17.History of depression. 18.History of nicotine dependence. DISCHARGE DISPOSITION: The patient will be discharged in stable condition with guarded prognosis. HISTORY OF PRESENT ILLNESS: This 67-year-old gentleman with a past medical history of multiple medical problems was admitted with nausea, vomiting, diarrhea, dizziness and weakness. Patient was treated symptomatically. C difficile negative. On exam, vitals are stable. CARDIOVASCULAR: S1, S2 muffled. ABDOMEN: Soft. NERVOUS SYSTEM: No focal deficits. I recommend the patient to follow up with the patient's primary physician and Oncology. Otherwise pancreatic supplementation was suggested at this time. DISCHARGE ADVICE: 1. Diet is cardiac. 2. Activity limited until followup. 3. Diet is lactose free. 4. Follow up with the primary physician in one to two days. 5. Follow up with Oncology as recommended. MEDICATIONS: 1. Albuterol p.r.n. 2. Lipitor 80 mg q.h.s. 3. Cepacol one q.4 p.r.n. 4. Vitamin D3, 800 daily. 5. Vitamin B12, 1000 mcg p.o. daily. 6. Iron sulfate 325 mg daily. 7. Proscar 5 mg p.o. daily. 8. Lasix 40 mg t.i.d. 9. Neurontin 400 mg t.i.d. 10.[place] 10 mg q.4 p.r.n. 11.Lantus 80 units subcutaneous q.h.s. 12.Nizoral 2% topical b.i.d. 13.Melatonin 3 mg q.h.s. p.r.n. 14.MS Contin 30 mg q.6 p.r.n. 15.Zofran 8 mg b.i.d. 16.MiraLAX 17 grams daily. 17.Compazine 10 mg p.r.n. 18.Senokot 8.6 b.i.d. 19.Carafate 1 gram q.i.d. 20.Flomax 0.4 b.i.d. 21.Spiriva 2 puffs daily. 22.Zenpep one t.i.d. 23.Imodium 2 mg q.i.d. p.r.n. 24.Lopressor 25 mg p.o. b.i.d. 25.Habitrol patch. 26.Mycostatin powder and oral suspension. 27.Zofran p.r.n. Once again, the patient will be discharged in stable condition with guarded prognosis. Time taken 35 minutes. SACHA / ROLAND: [id number] /
--- NOTE | 2018-05-21 16:30 | P.CONS ---
History of Present Illness - Reason for Consult Consult date: 05/21/18 pancreatic malignancy Requesting physician: Pradeep Palacios - Chief Complaint diarrhea, dehydration - History of Present Illness Pt is now known to our service. Mr. Lopez was diagnosed with stage IV pancreatic carcinoma in January of this year. From the [facility] reports that I have available it appears that the patient was being followed up for pancreatic cyst with serial CT scans. The CT scans revealed enlargement of the "cyst" and some liver lesions. This led to an ultrasound guided biopsy of the liver on 2017, pathology positive for pancreatic adenocarcinoma primary, staging imaging revealed involvement of SMV/SMA, invasion of the duodenum, gastric pylorus with liver metastases, stage IV, T4 NX M1, with elevated CA-19-9. Started chemotherapy with Abraxane and Gemzar through the [facility]. Has had 2 palliative Gemzar and Abraxane treatments, days 1 & 8, every 21 days, started 04/24/2018. Last week he was admitted to [facility] post second cycle with chemotherapy side effects of diarrhea and dehydration as well as lower extremity cellulitis. He was treated for the cellulitis and started on pancreatic enzymes which did help the diarrhea. He went home but, did not [facility] so, diarrhea returned, up to 9 stools in a day, vomiting 1, associated with lower abdominal cramping. He has been hydrated and received the pancreatic enzymes, he feels rather well , states no BM was this a.m., he is feeling hungry, no fevers, his lower extremity cellulitis is nearly, swelling significantly improved. He wants to go home so he can be seen at the [facility] in 2 days so that he can get clearance to have chemotherapy treatment locally. Review of Systems 14 point ROS as stated in HPI Past Medical History Past Medical History: Cancer, COPD, Diabetes Mellitus, Hypertension, Prostate Disorder, Vascular Disorder Additional Past Medical History / Comment(s): cx. CHF,emphysema, anemia, Stage 4 pancreatic cancer dx feb 2018, blister/yeast on scrotum, constipation, freq diarrhea with chemo, aaa unsure of size, edema to lower extremities, neuropathy hands/feet History of Any Multi-Drug Resistant Organisms: None Reported Past Surgical History: Cholecystectomy, Coronary Bypass/CABG, Heart Catheterization With Stent Additional Past Surgical History / Comment(s): triple bipass 4 stents . carotid artery, Past Anesthesia/Blood Transfusion Reactions: Blood Transfusion Reaction Additional Past Anesthesia/Blood Transfusion Reaction / Comm: 4 days after fever Date of Last Stent Placement:: 2003 Past Psychological History: No Psychological Hx Reported Smoking Status: Current every day smoker Past Drug Use History: None Reported - Past Family History Father Family Medical History: Myocardial Infarction ([place]) Mother Additional Family Medical History / Comment(s): blood clotting disease, triple bypass Brother(s) Additional Family Medical History / Comment(s): leukemia Medications and Allergies Home Medications Medication Instructions Recorded Confirmed Type Albuterol Inhaler [Ventolin Hfa 1 puff INHALATION RT-Q4H PRN 05/02/18 05/20/18 History Inhaler] Atorvastatin [Lipitor] 80 mg PO HS 05/02/18 05/20/18 History Cholecalciferol [Vitamin D3] 800 unit PO DAILY 05/02/18 05/20/18 History Cyanocobalamin (Vitamin B-12) 1,000 mcg PO DAILY 05/02/18 05/20/18 History [Vitamin B-12] Ferrous Sulfate [Feosol] 325 mg PO DAILY 05/02/18 05/20/18 History Finasteride [Proscar] 5 mg PO DAILY 05/02/18 05/20/18 History Furosemide [Lasix] 40 mg PO TID 05/02/18 05/20/18 History Gabapentin [Neurontin] 400 mg PO TID 05/02/18 05/20/18 History HYDROcodone/APAP 10-325MG [[place] 1 tab PO Q4HR PRN 05/02/18 05/20/18 History 10-325] Insulin Glargine [Lantus] 80 unit SQ HS 05/02/18 05/20/18 History Ketoconazole 2% Cream [Nizoral 2%] 1 applic TOPICAL BID 05/02/18 05/20/18 History Melatonin 3 mg PO HS PRN 05/02/18 05/20/18 History Morphine Sulfate ER [Ms Contin] 30 mg PO Q6HR PRN 05/02/18 05/20/18 History Ondansetron HCl 8 mg PO Q12HR 05/02/18 05/20/18 History Polyethylene Glycol 3350 [Miralax] 17 gm PO DAILY 05/02/18 05/20/18 History Prochlorperazine [Compazine] 10 mg PO Q6H PRN 05/02/18 05/20/18 History Sennosides [Senokot] 17.2 mg PO BID 05/02/18 05/20/18 History Sucralfate [Carafate] 1 gm PO QID 05/02/18 05/20/18 History Tamsulosin [Flomax] 0.4 mg PO BID 05/02/18 05/20/18 History Tiotropium [place] [Spiriva 2 spray INHALATION RT-DAILY 05/02/18 05/20/18 History Respimat] Loperamide [Imodium] 2 mg PO QID PRN #0 cap 05/13/18 05/20/18 Rx Metoprolol Tartrate [Lopressor] 25 mg PO BID #60 tab 05/13/18 05/20/18 Rx Nicotine 21Mg/24Hr Patch [Habitrol] 1 patch TRANSDERM DAILY #30 patch 05/13/18 05/20/18 Rx Nystatin 100,000 Unit/gm Powd 1 applic TOPICAL BID applic 05/13/18 05/20/18 Rx [Mycostatin Powder] Nystatin 100,000 Unit/ml Susp 500,000 unit PO Q6H #40 cup 05/13/18 05/20/18 Rx [Mycostatin Oral Susp] Ondansetron [Zofran ODT] 4 mg PO Q8HR PRN #15 tab 05/18/18 05/20/18 Rx Benzocaine/Menthol Lozeng [Cepacol 1 lozenge MUCOUS MEM Q4HR PRN 05/20/18 History lozenge] Lipase/Protease/Amylase [Zenpep Dr 10 each PO PC-TID #90 capsule. 05/21/18 Rx 5,000 Unit Capsule] Allergies Allergy/AdvReac Type Severity Reaction Status Date / Time fluticasone Allergy Unknown Verified 05/20/18 14:49 roflumilast Allergy Unknown Verified 05/20/18 14:49 saxagliptin Allergy Unknown Verified 05/20/18 14:49 terazosin Allergy low blood Verified 05/20/18 14:49 pressure Physical Exam Vitals: Vital Signs Temp Pulse Pulse Resp BP BP Pulse Ox 05/21/18 07:27 72 05/21/18 07:20 70 05/21/18 05:00 98.1 F 70 16 172/74 95 05/21/18 00:00 74 17 05/20/18 19:32 97.9 F 74 17 141/65 97 05/20/18 18:52 98.6 F 73 18 130/54 96 05/20/18 14:27 98.6 F 94 18 135/76 98 Intake and Output 05/20/18 05/21/18 05/21/18 22:59 06:59 14:59 Intake Total 450 450 Output Total 400 Balance 450 50 Intake: Intake, IV Titration 450 450 Amount Sodium Chloride 0.9% 1, 450 450 000 ml @ 75 mls/hr IV . [id number] [facility] Rx#:[id number] Output: Urine 400 Uretheral (Marx) 400 Other: Voiding Method Indwelling Catheter Weight 99.337 kg - Constitutional General appearance: average body habitus, cooperative, no acute distress - EENT Eyes: anicteric sclerae, EOMI ENT: hearing grossly normal, normal oropharynx - Neck Neck: no lymphadenopathy - Respiratory Respiratory: bilateral: CTA - Cardiovascular Rhythm: regular Heart sounds: normal: S1, S2 leg Peripheral Edema: right: 1+, left: 2+ - Gastrointestinal General gastrointestinal: no absent bowel sounds, no decreased bowel sounds, no distended, no hepatomegaly, no hyperactive bowel sounds, normal bowel sounds, no organomegaly, no rigid, no scaphoid, soft, no splenomegaly, no tenderness, no umbilical hernia, no ventral hernia - Integumentary BLE redness L>R, no open lesions, no s/s active cellulitis infection Integumentary: normal - Neurologic mild resting tremor noted in hands Neurologic: CNII-XII intact - Musculoskeletal Musculoskeletal: strength equal bilaterally - Psychiatric Psychiatric: A&O x's 3, appropriate affect, intact judgment & insight Results CBC & Chem 7: 05/21/18 07:50 05/21/18 07:50 Labs: Abnormal Lab Results - Last 24 Hours (Table) 05/20/18 05/20/18 05/20/18 Range/Units 15:50 17:00 17:00 WBC 13.4 H (3.8-10.6) k/uL RBC 3.98 L (4.30-5.90) m/uL Hgb 9.4 L (13.0-17.5) gm/dL Hct 30.3 L (39.0-53.0) % MCV 76.1 L (80.0-100.0) fL MCH 23.6 L (25.0-35.0) pg RDW 24.2 H (11.5-15.5) % Neutrophils # 11.5 H (1.3-7.7) k/uL Lymphocytes # 0.9 L (1.0-4.8) k/uL PT 12.5 H (9.0-12.0) sec INR 1.3 H (<1.2) Chloride (98-107) mmol/L BUN (9-20) mg/dL Creatinine 0.60 L (0.66-1.25) mg/dL Glucose 120 H (74-99) mg/dL Hemoglobin A1c (4.0-6.0) % Alkaline Phosphatase 165 H (38-126) U/L Albumin 2.9 L (3.5-5.0) g/dL Lipase 684 H (23-300) U/L Urine Protein (Negative) Ur Leukocyte Esterase (Negative) Urine WBC (0-5) /hpf Urine Mucus (None) /hpf 05/20/18 05/20/18 05/20/18 Range/Units 17:00 18:57 18:57 WBC (3.8-10.6) k/uL RBC (4.30-5.90) m/uL Hgb (13.0-17.5) gm/dL Hct (39.0-53.0) % MCV (80.0-100.0) fL MCH (25.0-35.0) pg RDW (11.5-15.5) % Neutrophils # (1.3-7.7) k/uL Lymphocytes # (1.0-4.8) k/uL PT (9.0-12.0) sec INR (<1.2) Chloride (98-107) mmol/L BUN (9-20) mg/dL Creatinine (0.66-1.25) mg/dL Glucose (74-99) mg/dL Hemoglobin A1c 7.1 H (4.0-6.0) % Alkaline Phosphatase (38-126) U/L Albumin (3.5-5.0) g/dL Lipase 594 H (23-300) U/L Urine Protein 2+ H (Negative) Ur Leukocyte Esterase Small H (Negative) Urine WBC 16 H (0-5) /hpf Urine Mucus Many H (None) /hpf 05/21/18 05/21/18 Range/Units 07:50 07:50 WBC (3.8-10.6) k/uL RBC (4.30-5.90) m/uL Hgb 10.3 L (13.0-17.5) gm/dL Hct 33.1 L (39.0-53.0) % MCV 76.9 L (80.0-100.0) fL MCH 24.0 L (25.0-35.0) pg RDW 24.3 H (11.5-15.5) % Neutrophils # (1.3-7.7) k/uL Lymphocytes # (1.0-4.8) k/uL PT (9.0-12.0) sec INR (<1.2) Chloride 110 H (98-107) mmol/L BUN 7 L (9-20) mg/dL Creatinine 0.59 L (0.66-1.25) mg/dL Glucose (74-99) mg/dL Hemoglobin A1c (4.0-6.0) % Alkaline Phosphatase (38-126) U/L Albumin (3.5-5.0) g/dL Lipase (23-300) U/L Urine Protein (Negative) Ur Leukocyte Esterase (Negative) Urine WBC (0-5) /hpf Urine Mucus (None) /hpf Microbiology - Last 24 Hours (Table) 05/20/18 15:21 Stool Culture - Preliminary Stool Chest x-ray: report reviewed Assessment and Plan (1) Diarrhea Narrative/Plan: C-diff negative. Diarrhea improves when pt takes pancreatic enzymes. His insurance will not pay for them, [facility] [place] [facility] can [facility]. Will contact [facility] and see if this process can be expedited. Pt is due to be seen in [place] in 2 days to get his clearance to start chemo locally so, if we get Rx process going he should be able to picking tech at his appt. Discussed with case mgmt, they will help me with this process. update: [facility] contacted [facility] and they stated [facility] through [facility] late last week. Case management is to follow up with patient and his to see if medication has now been delivered. Status: Acute Priority: High Code(s): R19.7 - DIARRHEA, UNSPECIFIED SNOMED Code(s): 87775763 (2) Pancreatic cancer Narrative/Plan: Has to meet and be examined [facility] to get [facility] for treatment locally. He will follow-up with Dr. Mcmahon, plan is to continue treatment. Status: Acute Priority: High Code(s): C25.9 - MALIGNANT NEOPLASM OF PANCREAS , UNSPECIFIED SNOMED Code(s): 183219769 Plan: patient is okay from an oncology standpoint to be discharged once it is certain he has is medications. He already has a follow-up appointment
== END 2018-05-21 15:10 | disposition home or self-care (01) ==
LOC: EC 14:26 → 3NMEDONC 18:03
PROVIDERS: ADMIT Hospitalist; ATTEND Hospitalist
DX: R11.2 Nausea with vomiting, unspecified (principal); E86.0 Dehydration; R19.7 Diarrhea, unspecified; L03.116 Cellulitis of left lower limb; C25.9 Malignant neoplasm of pancreas, unspecified; C78.7 Secondary malignant neoplasm of liver and intrahepatic bile duct; C79.89 Secondary malignant neoplasm of other specified sites; Z92.21 Personal history of antineoplastic chemotherapy; D72.829 Elevated white blood cell count, unspecified; D50.9 Iron deficiency anemia, unspecified; R74.8 Abnormal levels of other serum enzymes; F17.200 Nicotine dependence, unspecified, uncomplicated; J43.9 Emphysema, unspecified; E11.9 Type 2 diabetes mellitus without complications; N42.9 Disorder of prostate, unspecified; I25.10 Atherosclerotic heart disease of native coronary artery without angina pectoris; I11.0 Hypertensive heart disease with heart failure; I50.9 Heart failure, unspecified; Z95.5 Presence of coronary angioplasty implant and graft; Z95.1 Presence of aortocoronary bypass graft; Z79.4 Long term (current) use of insulin; Z79.891 Long term (current) use of opiate analgesic; Z79.899 Other long term (current) drug therapy; Z88.8 Allergy status to other drugs, medicaments and biological substances; Z80.6 Family history of leukemia; Z82.49 Family history of ischemic heart disease and other diseases of the circulatory system; Z87.440 Personal history of urinary (tract) infections
CPT/HCPCS: 96376; 96372 ×2; 96375 ×2; 96361; 96374; 99285; 36415; 94640 ×2; 97161; 80053; 80048; 82150; 83605; 83690; 83735; 85025 ×2; 85610; 85730; 81001; 87040; 87324; 87045; 83630; 87046; 83036; 71046; G0378 ×2; S4990 ×2; S0138; J2270; J0500; J2405; J1650; J1170; C9113

== ENCOUNTER → 2018-09-27 | Outpatient (CLI) | payer MEDICARE ==
--- NOTE | 2018-09-27 11:23 | XR ---
EXAMINATION TYPE: XR chest 2V DATE OF EXAM: 09/27/2018 COMPARISON: 05/20/2018 TECHNIQUE: PA and lateral views submitted. HISTORY: Cough FINDINGS: The lungs are clear and there is no pneumothorax, pleural effusion, or focal pneumonia. Mediport ca theter seen is postsurgical changes. Arthropathy of the shoulders. No overt failure. Hypertrophic and degenerative change of the spine. Hyperinflation suggests COPD. IMPRESSION: 1. No acute process.
== END | disposition home or self-care (01) ==
LOC: RADXRYALE 10:40
PROVIDERS: ATTEND Family Medicine
DX: R06.02 Shortness of breath (principal); R05 Cough
CPT/HCPCS: 71046